=== PATIENT | female | born 1990 | race Caucasian/White ===

== ENCOUNTER → 2017-05-31 19:28 | Outpatient (CLI) | payer OTHER, SELFPAY ==
[2017-06-02 16:10] LABS: Angiotensin Convert Enzyme 136 U/L (14-82)
[2017-06-03 16:34] LABS: Anti-Nuclear Antibody Test Negative (.); Immunoglobulin M < 5 mg/dL (26-217)
== END ==
PROVIDERS: Family Provider Internal Medicine; PCP Internal Medicine; Visit Provider Internal Medicine Hematology & Oncology
DX: R69 Illness, unspecified (principal)
CPT/HCPCS: 82164; 82784; 86038

== ENCOUNTER 2017-10-24 09:04 | Emergency (ER) | payer OTHER, SELFPAY ==
[2017-10-24 09:04] VITALS: BP 145/101; PULSE 91; RESP 16; TEMP 36.9; O2SAT 100; BMI 23.2
--- NOTE | 2017-10-24 09:14 | NURSING ---
NO LW OR POA
--- NOTE | 2017-10-24 09:16 | RAD_ITS ---
STUDY: X-RAY CHEST REASON FOR EXAM: Female, 27 years old. Acute onset of chest pain TECHNIQUE: Single AP portable view of the chest. COMPARISON: 08/06/2017 FINDINGS: The lungs are clear and expanded. There is no demonstrated pleural abnormality. Normal size heart. Normal mediastinum and devon. Normal visualized pulmonary arteries. Normal visualized aortic arch and descending thoracic aorta. Normal visualized thoracic spine. Normal visualized ribs, clavicles, and shoulders. There is no demonstrated abnormality of the visualized soft tissue structures of the upper abdomen. RAD/Chest 1 View (Portable) IMPRESSION: Normal x-ray examination of the chest. Electronically Signed: Aamir Cotto DO at 10:47 EST Tel , Service support ,
--- NOTE | 2017-10-24 09:16 | EKG12_ITS ---
Test Reason : CP Blood Pressure : / mmHG Vent. Rate : 090 BPM Atrial Rate : 090 BPM P-R Int : 120 ms QRS Dur : 086 ms QT Int : 366 ms P-R-T Axes : 042 031 018 degrees QTc Int : 447 ms Normal sinus rhythm Normal ECG Confirmed by SHARRI MCCALL, LEXY ([id number]), fashion editor PIOTR KRAUSE ([id number]) on 10/26/2017 12:58:33 PM Referred By: MYLES Confirmed By:LEXY HARRELL MD
[2017-10-24 09:44] LABS: Hematocrit 30.7 % (37-47); Hemoglobin 9.8 g/dl (12.0-15.0); Mean Corp Hgb Conc 31.9 g/gl (32-36); Mean Corpuscular Hgb 29.4 pg (27.0-32.0); Mean Corpuscular Volume 92.2 fL (81-99); Mean Platelet Vol. 9.3 fl (6.2-12.0); Platelet Count 276 K/mm3 (150-450); RBC Distribution Width SD 56.6 fl (35.1-43.9); Red Blood Count 3.33 M/mm3 (4.2-5.4); White Blood Count 21.8 K/mm3 (4.4-11.0)
[2017-10-24 09:45] LABS: POSITIVE COUNT NO; POSITIVE DIFFERENTIAL YES; POSITIVE MORPHOLOGY YES
[2017-10-24 09:46] LABS: Differential Indicated MANUAL DIFF
[2017-10-24 09:54] LABS: Anion Gap 10 (5-15); BUN 12 mg/dL (7-18); BUN/Creat Ratio 23.3 RATIO (10-20); Calcium,Total 9.5 mg/dL (8.5-10.1); Chloride 102 mmol/L (98-107); Creatinine, Serum 0.51 mg/dL (0.55-1.02); EST Glomerular Filtration Rate 154 mL/min (>60); Est Glom Filt Rate - Afr Amer 186 mL/min (>60); Glucose 84 mg/dL (74-106); Lipase 72 U/L (73-393); Potassium 3.4 mmol/L (3.5-5.1); Sodium Level 139 mmol/L (136-145)
[2017-10-24 09:58] LABS: AST(SGOT) 10 U/L (15-37); Alanine Aminotransfer ALT/SGPT 16 U/L (13-56); Albumin, Serum 2.3 g/dL (3.2-5.0); Alkaline Phosphatase 183 U/L (45-117); Bilirubin, Direct < 0.05 mg/dL (0.00-0.30); D-Dimer Quantitative (DVT/PE) 3.21 FEU/ug/m (0.27-0.49); Globulin 3.9 g/dL (2.2-4.2); Protein, Total 6.2 g/dL (6.4-8.2)
--- NOTE | 2017-10-24 10:00 | CT_ITS ---
STUDY: CTA CHEST REASON FOR EXAM: Female, 27 years old. Chest pain this morning RADIATION DOSAGE (If Supplied By Facility): CTDIvol = ( 7.42 ) mGy, DLP = ( 196.46 ) mGycm TECHNIQUE: The examination was performed with the intravenous administration of 75 ml of Isovue 370 contrast material. Post-processing of the angiographic images was performed, with multiplanar reformation and 3D reconstruction. Individualized dose optimization techniques were used for this CT. COMPARISON: Chest x-ray earlier FINDINGS: Normal enhancement of the main pulmonary artery and right and left pulmonary arteries. Normal enhancement of the bilateral peripheral pulmonary arteries. There is no demonstrated pulmonary embolism. Normal thoracic aorta and visualized great vessels. There is no demonstrated aortic dissection. Normal heart and pericardium. Normal mediastinum. Normal hilar regions. Normal visualized trachea and bronchi. The lungs are well expanded. There is a left retrocardiac infiltrate suggesting left retrocardiac pneumonia. There is a trace pleural effusion on the left. Lungs are otherwise clear Normal pleura. Normal chest wall structures. Normal osseous structures. Hepatosplenomegaly is noted. CT/CTA Chest W/WO Contrast IMPRESSION: 1. Negative for pulmonary embolism or thoracic aortic dissection 2. Subtle left retrocardiac infiltrate suggests pneumonia with small effusion. Lungs are otherwise clear. 3. Hepatosplenomegaly. Electronically Signed: Aamir Cotto DO at 11:29 EST Tel , Service support ,
[2017-10-24] MEDS: 0.9% Normal Saline 1,000 ML 150 ML IV (10:03)
[2017-10-24] MEDS: Ondansetron 4 MG/2 ML Vial IV (10:03)
[2017-10-24] MEDS: HYDROmorphone 1 MG/ML Syringe IV (10:03)
[2017-10-24 10:05] VITALS: BP 133/107; PULSE 94; RESP 16; O2SAT 100
[2017-10-24 10:08] LABS: Lymphocyte 11 % (19-41); Metamyelocyte 1 % (0-1); Monocyte 8 % (0-10); Myelocyte 3 (0-0); Neutrophil-Band 3 % (0-5); Neutrophil-Segmented 74 % (47-70); Nucleated Red Bld Cells,Manual 1 % (0-5); Total Cells Counted 100 (MANUAL DIFF)
[2017-10-24 10:09] LABS: Anisocytosis 1+; Platelet Estimate ADEQUATE (ADEQ)
--- NOTE | 2017-10-24 10:09 | ED.VISSUMM ---
- ER Visit Summary Date of Service: 10/24/17 Chief Complaint: [Chest pain] History of Present Illness: The patient is a 27 F [presents to the emergency department with complaint of chest pain that started this morning around 5 AM. Patient states she was sleeping when she was awoken by sharp stabbing pain in the center of her chest. Patient denies any nausea or vomiting with it. Patient states that the pain is not pleuritic. Patient has a history of non-Hodgkin's large B-cell lymphoma. Patient denies any fever. Patient did have a cough 2 weeks ago but has not cough for about a week to a week and a half. Patient was hospitalized a couple weeks ago and apparently was admitted for couple months up at [facility]. Patient's last chemotherapy was about 3 weeks ago.] Physical Examination: [HERAFIARVELIA ESTEVEZMI. Cranial nerves II through XII grossly intact. TMs clear. Mucous membranes moist. No adenopathy. Cardiovascular-regular rate and rhythm without murmur or ectopy Lungs-clear to auscultation, chest wall stable without crepitus or subcu emphysema. Patient has tenderness palpation over the anterior central chest that seems to reproduce her pain. Abdomen-normoactive bowel sounds, soft, nontender, no rebound or rigidity, no peritoneal signs. Extremities-intact ?4, normal range of motion, normal pulses, atraumatic] Test Results: [CBC with differential obtained for white count 21.8, Hemoccult 9.8, hematocrit 31, platelets 276. Chemistries unremarkable. LFTs unremarkable. Lipase was 72. Troponin was less than 0.02. TG obtained showed sinus rhythm with a rate of 90 bpm with no acute ST segment changes. Chest x-ray obtained due to. D-dimer was elevated therefore CT of the chest was ordered] there was no evidence of PE or dissection. There was a faint retrocardiac infiltrate concerning for pneumonia. Patient's family state that findings on the left side on the CT are chronic and she had similar findings on CT up in [place]. Patient was believed to have gotten C. difficile from being treated with Levaquin. Emergency Department Course and Treatment: [Discussed case with Dr. Shon Felix as patient is scheduled to see him tomorrow. Family tells me that patient's white blood cell count commonly elevated before her next chemo treatment and she is receiving Neulasta. Patient has not had a fever. Patient has not had a cough for over a week and a half. Clinically I do not believe the patient has pneumonia. Patient's chest pain is reproducible and is feeling improved after being treated with Dilaudid in the emergency department. I did order blood cultures and I feel patient can be safely discharged home to keep her appointment with Dr. Felix tomorrow and he is in agreement.] Treatment Plan: [Patient will be given a prescription for [place] for pain.] Disposition: Discharged to home in stable condition. Patient advised to return if worsening pain, increasing shortness of breath, or condition should worsen in any way.] Impression: [Chest pain-etiology uncertain however suspect musculoskeletal] This note was generated with [employer] dictation software. It may contain incorrect words, spelling, and punctuation that were not noted in review of the chart prior to signing ED Disposition - Plan for ED Patient: Chief Complaint: Chest Pain Referrals: Juanita Zapata MD [Primary Care Provider] -
[2017-10-24 10:10] LABS: Hypochromasia 2+; Polychromasia 1+; Schistocytes RARE
[2017-10-24 10:11] LABS: Absolute Neutrophil Count 16.8 X10^3/uL (2.0-7.7)
--- NOTE | 2017-10-24 10:12 | ED.DCSUM_ITS ---
- ER Visit Summary Date of Service: 10/24/17 Chief Complaint: [Chest pain] History of Present Illness: The patient is a 27 F [presents to the emergency department with complaint of chest pain that started this morning around 5 AM. Patient states she was sleeping when she was awoken by sharp stabbing pain in the center of her chest. Patient denies any nausea or vomiting with it. Patient states that the pain is not pleuritic. Patient has a history of non- Hodgkin's large B-cell lymphoma. Patient denies any fever. Patient did have a cough 2 weeks ago but has not cough for about a week to a week and a half. Patient was hospitalized a couple weeks ago and apparently was admitted for couple months up at [facility]. Patient's last chemotherapy was about 3 weeks ago.] Physical Examination: [HERAFIARVELIA ESTEVEZMI. Cranial nerves II through XII grossly intact. TMs clear. Mucous membranes moist. No adenopathy. Cardiovascular-regular rate and rhythm without murmur or ectopy Lungs-clear to auscultation, chest wall stable without crepitus or subcu emphysema. Patient has tenderness palpation over the anterior central chest that seems to reproduce her pain. Abdomen-normoactive bowel sounds, soft, nontender, no rebound or rigidity, no peritoneal signs. Extremities-intact ?4, normal range of motion, normal pulses, atraumatic] Test Results: [CBC with differential obtained for white count 21.8, Hemoccult 9.8, hematocrit 31, platelets 276. Chemistries unremarkable. LFTs unremarkable. Lipase was 72. Troponin was less than 0.02. TG obtained showed sinus rhythm with a rate of 90 bpm with no acute ST segment changes. Chest x- ray obtained due to. D-dimer was elevated therefore CT of the chest was ordered ] there was no evidence of PE or dissection. There was a faint retrocardiac infiltrate concerning for pneumonia. Patient's family state that findings on the left side on the CT are chronic and she had similar findings on CT up in [place]. Patient was believed to have gotten C. difficile from being treated with Levaquin. Emergency Department Course and Treatment: [Discussed case with Dr. Shon Felix as patient is scheduled to see him tomorrow. Family tells me that patient's white blood cell count commonly elevated before her next chemo treatment and she is receiving Neulasta. Patient has not had a fever. Patient has not had a cough for over a week and a half. Clinically I do not believe the patient has pneumonia. Patient's chest pain is reproducible and is feeling improved after being treated with Dilaudid in the emergency department. I did order blood cultures and I feel patient can be safely discharged home to keep her appointment with Dr. Felix tomorrow and he is in agreement.] Treatment Plan: [Patient will be given a prescription for [place] for pain.] Disposition: Discharged to home in stable condition. Patient advised to return if worsening pain, increasing shortness of breath, or condition should worsen in any way.] Impression: [Chest pain-etiology uncertain however suspect musculoskeletal] This note was generated with [employer] dictation software. It may contain incorrect words, spelling, and punctuation that were not noted in review of the chart prior to signing ED Disposition - Plan for ED Patient: Chief Complaint: Chest Pain Referrals: Juanita Zapata MD [Primary Care Provider] -
--- NOTE | 2017-10-24 10:38 | NURSING ---
NO LW OR POA
[2017-10-24 11:35] VITALS: BP 126/96; PULSE 89; RESP 18; O2SAT 100
[2017-10-24 11:44] LABS: Bacteria 0 SEEN /hpf (None Seen); Mucous, Urine 0 SEEN /hpf (<or=2+); Red Blood Cells-Urine 0 SEEN /hpf (0-5); White Blood Cells 0 SEEN /hpf (0-5)
[2017-10-24 11:46] LABS: Color, Urine Yellow (Yellow); Glucose, Dipstick Normal (Normal); Ketone-Dipstick Negative (Negative); Leukocyte Esterase-Dipstick Negative /ul (Negative); Nitrite-Dipstick Negative (Negative); Occult Blood-Urine Negative /ul (Negative); Protein-Dipstick Negative (Negative); Urine Bilirubin Dipstick Negative (Negative); Urine Clarity Sl. Cloudy (Clear); Urine Urobilinogen Normal (Normal); Urine pH 6.5 (5.0 - 8.0)
[2017-10-24 11:54] LABS: Squamous Epithelial Cells - UA 0-5 SEEN /hpf (5-10)
--- NOTE | 2017-10-24 11:56 | ED.DEP ---
ED Disposition - Plan for ED Patient: Chief Complaint: Chest Pain Instructions: ED Chest Pain Atypical Unkn Cause Prescriptions: Hydrocodone Bitart/Apap 5-325 [[place] 5/325] 1 - 2 tab PO Q4H PRN PRN #12 tab PRN Reason: Pain Referrals: Juanita Zapata MD [Primary Care Provider] - Shon Felix DO [STAFF PHYSICIAN] - 1 Day
--- NOTE | 2017-10-24 12:08 | ED.RN ---
1 SET OF BLOOD CULTURES TAKEN AND SENT. UNABLE TO GET 2ND CULTURE PRIOR TO DEPARTURE. PT HAD TO LEAVE TO TAKE HOME MEDS.
[2017-10-24 12:09] VITALS: BP 136/91; PULSE 89; RESP 16; O2SAT 100
[2017-10-26 14:44] LABS: Pathologist Review Reviewed
== END 2017-10-24 12:09 | disposition home or self-care (01) ==
PROVIDERS: Emergency Provider Emergency Medicine; Family Provider Internal Medicine; PCP Internal Medicine
DX: R07.89 Other chest pain (principal); R79.89 Other specified abnormal findings of blood chemistry; R91.8 Other nonspecific abnormal finding of lung field; D72.829 Elevated white blood cell count, unspecified; C85.10 Unspecified B-cell lymphoma, unspecified site; Z79.899 Other long term (current) drug therapy
CPT/HCPCS: 71045; 71275; 80048; 80076; 81001; 83690; 84484; 85025; 85379; 87804; 93005; 96361; 96374; 96375; 99284; J7030; Q9967; A4216; J2405

== ENCOUNTER → 2017-10-25 15:58 | Outpatient (CLI) | payer OTHER, SELFPAY ==
[2017-10-25 18:11] LABS: AST(SGOT) 14 U/L (15-37); Alanine Aminotransfer ALT/SGPT 21 U/L (13-56); Albumin, Serum 2.2 g/dL (3.2-5.0); Alkaline Phosphatase 195 U/L (45-117); Bilirubin, Direct < 0.05 mg/dL (0.00-0.30); Globulin 3.8 g/dL (2.2-4.2); LDH 289 U/L (84-246); Uric Acid 4.8 mg/dL (2.6-6.0)
== END ==
PROVIDERS: Family Provider Internal Medicine; PCP Internal Medicine; Visit Provider Internal Medicine Hematology & Oncology
DX: C83.38 Diffuse large B-cell lymphoma, lymph nodes of multiple sites (principal)
CPT/HCPCS: 80076; 83615; 84550

== ENCOUNTER → 2017-10-26 10:28 | Outpatient (CLI) | payer OTHER, SELFPAY | PROVIDERS: Family Provider Internal Medicine; PCP Internal Medicine; Visit Provider Internal Medicine Hematology & Oncology | DX: C85.10 Unspecified B-cell lymphoma, unspecified site (principal) | CPT/HCPCS: 36569; A4216 ==

== ENCOUNTER → 2017-10-26 10:52 | Outpatient (CLI) | payer OTHER, SELFPAY ==
[2017-10-27 11:37] LABS: Phosphorus 3.9 mg/dL (2.5-4.9)
== END ==
PROVIDERS: Family Provider Internal Medicine; PCP Internal Medicine; Visit Provider Internal Medicine Hematology & Oncology
DX: C83.38 Diffuse large B-cell lymphoma, lymph nodes of multiple sites (principal); C83.30 Diffuse large B-cell lymphoma, unspecified site
CPT/HCPCS: 84100

== ENCOUNTER → 2017-11-08 09:25 | Outpatient (CLI) | payer OTHER, SELFPAY | PROVIDERS: Family Provider Internal Medicine; PCP Internal Medicine; Visit Provider Internal Medicine Hematology & Oncology | DX: C83.30 Diffuse large B-cell lymphoma, unspecified site (principal) | CPT/HCPCS: 94642 ==

== ENCOUNTER → 2017-11-15 09:42 | Outpatient (CLI) | payer OTHER, SELFPAY ==
[2017-11-15 13:35] LABS: AST(SGOT) 13 U/L (15-37); Alanine Aminotransfer ALT/SGPT 15 U/L (13-56); Albumin, Serum 2.7 g/dL (3.2-5.0); Alkaline Phosphatase 144 U/L (45-117); Bilirubin, Direct 0.06 mg/dL (0.00-0.30); Globulin 3.8 g/dL (2.2-4.2); LDH 151 U/L (84-246); Protein, Total 6.5 g/dL (6.4-8.2); Uric Acid 6.7 mg/dL (2.6-6.0)
[2017-11-16 13:51] LABS: T4 Free Direct 1.18 ng/dL (0.76-1.46); Thyroid Stim Hormone (TSH) 1.72 uIU/mL (0.358-3.74)
== END ==
PROVIDERS: Family Provider Internal Medicine; PCP Internal Medicine; Visit Provider Internal Medicine Hematology & Oncology
DX: C83.30 Diffuse large B-cell lymphoma, unspecified site (principal); R53.83 Other fatigue
CPT/HCPCS: 80076; 83615; 84439; 84443; 84550

== ENCOUNTER → 2017-11-17 08:32 | Outpatient (CLI) | payer OTHER, SELFPAY ==
[2017-11-17] VITALS (7 sets, daily range): BP systolic 103–114; BP diastolic 65–80; PULSE 78–96; RESP 16–18; TEMP 35.7–36.4; O2SAT 98–100; BMI 22.0
== END ==
PROVIDERS: Family Provider Internal Medicine; PCP Internal Medicine; Visit Provider Internal Medicine Hematology & Oncology
DX: D61.818 Other pancytopenia (principal)
CPT/HCPCS: 36430; 86644; 86850; 86900; 86920; 86922; J7040; P9040; A4216

== ENCOUNTER → 2017-11-24 13:51 | Outpatient (CLI) | payer OTHER, SELFPAY ==
[2017-11-24 15:23] VITALS: BP 100/70; PULSE 114; RESP 18; TEMP 36; O2SAT 100; BMI 22.0
[2017-11-24 15:58] VITALS: BP 99/66; PULSE 103; RESP 16; TEMP 36.2; O2SAT 99
[2017-11-24 17:01] VITALS: BP 108/68; PULSE 100; RESP 16; TEMP 36.5; O2SAT 100
[2017-11-24 17:23] VITALS: BP 108/70; PULSE 87; RESP 18; TEMP 35.8; O2SAT 97
[2017-11-24 18:07] VITALS: BP 107/70; PULSE 100; RESP 18; TEMP 36.6; O2SAT 100
== END ==
PROVIDERS: Visit Provider Internal Medicine Hematology & Oncology
DX: C83.30 Diffuse large B-cell lymphoma, unspecified site (principal); D61.9 Aplastic anemia, unspecified
CPT/HCPCS: 36430; 86644; 86900; 86965; J7040; P9035; A4216

== ENCOUNTER → 2017-12-06 15:59 | Outpatient (CLI) | payer OTHER, SELFPAY ==
[2017-12-06 16:39] LABS: AST(SGOT) 14 U/L (15-37); Alanine Aminotransfer ALT/SGPT 10 U/L (13-56); Albumin, Serum 2.8 g/dL (3.2-5.0); Alkaline Phosphatase 154 U/L (45-117); Bilirubin, Direct 0.05 mg/dL (0.00-0.30); Globulin 3.7 g/dL (2.2-4.2); LDH 243 U/L (84-246); Protein, Total 6.5 g/dL (6.4-8.2); Uric Acid 4.6 mg/dL (2.6-6.0)
[2017-12-08 04:15] LABS: Immunoglobulin G 339 mg/dL (700-1600)
[2017-12-08 09:22] LABS: Immunoglobulin A 25 mg/dL (87-352); Immunoglobulin M 11 mg/dL (26-217)
== END ==
PROVIDERS: Family Provider Internal Medicine; PCP Internal Medicine; Visit Provider Internal Medicine Hematology & Oncology
DX: C83.30 Diffuse large B-cell lymphoma, unspecified site (principal); D84.9 Immunodeficiency, unspecified
CPT/HCPCS: 80076; 82784; 83615; 84550

== ENCOUNTER → 2017-12-14 09:30 | Outpatient (CLI) | payer OTHER, SELFPAY ==
[2017-12-14] VITALS (9 sets, daily range): BP systolic 87–107; BP diastolic 51–63; PULSE 84–119; RESP 16–18; TEMP 36.2–37.2; O2SAT 99–100; BMI 22.0
== END ==
PROVIDERS: Family Provider Internal Medicine; PCP Internal Medicine; Visit Provider Internal Medicine Hematology & Oncology
DX: D61.818 Other pancytopenia (principal)
CPT/HCPCS: 36430; 86644; 86850; 86900; 86920; 86922; 86965; J7040; P9037; P9040; A4216

== ENCOUNTER → 2017-12-20 09:48 | Outpatient (CLI) | payer OTHER, SELFPAY ==
--- NOTE | 2017-12-20 09:51 | ECHOD_ITS ---
Reason For Study: CARDIOTOXICITY Procedure This was a 2D Doppler, Color Flow transthoracic echocardiogram. Exam performed in department. Left Ventricle Normal size and thickness. The estimated ejection fraction is 40-45 %. Normal diastology for age. There is moderate global hypokinesis of the left ventricle. Right Ventricle Normal size and thickness. Normal systolic function. Atria Normal left atrium. Normal right atrium. Normal atrial septum. Mitral Valve The mitral valve is structurally normal. No prolapse or stenosis seen. Tricuspid Valve Normal tricuspid valve. Unable to estimate RV systolic pressure/pulmonary artery pressure due to technically difficult study. Aortic Valve Normal aortic valve. Trisinus/trileaflet aortic valve. Pulmonic Valve Normal pulmonic valve. Great Vessels Normal aortic root. Normal arch. Normal inferior vena cava. Inferior vena cava collapse with sniff. Pericardium/Pleural No pericardial effusion. MMode/2D Measurements & Calculations LVIDd: 4.0 cm IVSd: 0.86 cm Ao root diam: 2.9 cm LVIDs: 3.2 cm LVPWd: 0.91 cm RVDd: 2.3 cm FS: 20.2 % LAV(MOD-bp): 15.8 ml EDV(MOD-sp4): 82.4 ml SV(MOD-sp4): 42.7 ml LAV(MOD-bp) Indexed: 8.9 ml/m2 ESV(MOD-sp4): 39.7 ml LAV(MOD-sp2): 12.6 ml EF(MOD-sp4): 51.8 % LAV(MOD-sp4): 18.5 ml LA A4 area: 9.4 cm2 RA A4 area: 5.1 cm2 Time Measurements MV dec time: 0.21 sec Doppler Measurements & Calculations MV E max francis: 72.6 cm/sec Lat Peak E' Francis: 11.4 cm/sec Med Peak E' Francis: 9.6 cm/sec MV A max francis: 66.1 cm/sec E/E' lat: 6.3 E/E' med: 7.6 MV E/A: 1.1 Ao V2 max: 107.3 cm/sec LV V1 max: 87.5 cm/sec PA V2 max: 89.6 cm/sec Ao max P.6 mmHg LV V1 max P.1 mmHg Interpretation Summary The estimated ejection fraction is 40-45 %. Normal diastology for age. There is moderate global hypokinesis of the left ventricle. Unable to estimate RV systolic pressure/pulmonary artery pressure due to technically difficult study. There is no comparison study available. Ordering Physician: Serafin Mayorga Referring Physician: LELE GRIFFITHS Performed By: Rebekah Braxton RDCS
[2017-12-20 10:22] LABS: Hemoglobin 11.1 g/dl (12.0-15.0); Mean Corp Hgb Conc 32.6 g/gl (32-36); Mean Corpuscular Hgb 31.3 pg (27.0-32.0); Mean Corpuscular Volume 95.8 fL (81-99); Mean Platelet Vol. 10.4 fl (6.2-12.0); Platelet Count 105 K/mm3 (150-450); RBC Distribution Width CV 17.2 % (11.6-14.6); RBC Distribution Width SD 55.5 fl (35.1-43.9); Red Blood Count 3.55 M/mm3 (4.2-5.4); White Blood Count 10.2 K/mm3 (4.4-11.0)
[2017-12-20 10:24] LABS: Scan Indicated on CBC? Y/N NO
== END ==
PROVIDERS: Family Provider Internal Medicine; PCP Internal Medicine; Visit Provider Internal Medicine Hematology & Oncology
DX: C83.33 Diffuse large B-cell lymphoma, intra-abdominal lymph nodes (principal); R16.2 Hepatomegaly with splenomegaly, not elsewhere classified; D69.6 Thrombocytopenia, unspecified; Z08 Encounter for follow-up examination after completed treatment for malignant neoplasm
CPT/HCPCS: 36415; 85027; 93306

== ENCOUNTER 2017-12-22 12:00 | Outpatient (RCR) | payer OTHER, SELFPAY ==
--- NOTE | 2017-10-31 15:38 | HP.OTEVAL ---
Patient's Visit Information HENRIETTA LOPEZ is a 27 year old F, referred to Occupational Therapy by ENOC BRITT ERIKA, with a diagnosis of Weakness in arms. Date of Evaluation: 10/31/17 Occupational Therapist: Mirella Corcoran - Subjective Subjective: Pt seen for initial occupational therapy evaluation for decreased upper extremity strength and decreased independence with BADLs/IADLs. Pt has Non-Hodgkin's Lymphoma and is going through chemo at this time. Pt has been living at her house part of the time and at her parents house the other times. She has primarily been residing at her parents house more recently which is one story with 2 steps to enter. She has a tub/shower with extended tub bench, hand held shower, and a bedside commode over the toilet. She works at [email or web address], but hasn't been back to work for a few months secondary to medical condition. - Objective Objective/Observation: Pt demo decreased strength, activity tolerance and independence with BADLs/IADLs - ROM ROM Comments: WFL BUE - Strength Shoulder: R 3+/5, L 3+/5 Elbow: R 3+/5, L 3+/5 Forearm: R 3+/5, L 3+/5 Wrist: R 3+/5, L 3+/5 Core Cutter And Reamer: R 18#, L 14# Tripod Pinch: R 2#, L 0# Strength Comments: Pt demo decreased generalized BUE strength. - Edema Other: No Edema Noted - Sensation Sensation Comments: Numbness bilateral finger tips since sx 07/2017. - Transfers Transfers: Moderate Assist needed for sit to stand transfers. Pt demo good safety with hands. - Nine Hole Peg Right: 26 sec Left: 29 sec - DASH-Disabilities of Arm, Shoulder& Hand DASH Sum: 72 - Goals Goal:: Pt will progress w/ BUE strength 4/5 to assist w/ toilet transfers independently by d/c. Goal:: Pt will progress w/ LB dressing and toileting tasks independently with the use of DME/AE as needed with good safety and use of adaptive techniques as needed. Goal:: Pt will progress w/ R hand certified ophthalmic medical technician strength by 8# and L hand certified ophthalmic medical technician strength by 10# to assist w/ BADL's/IADL's. Goal:: Pt will be educated on BUE HEP to increase strength and tolerance for BADLs/IADLs with good understanding and demo 100%x. - Rehabilitation General Assessment: Pt demo decreased BUE strength, decreased bilateral certified ophthalmic medical technician strength and pinch strength limiting her independence with functional transfers and ADL tasks. Pt would benefit from occupational therapy services to increase her BUE generalized strength and bilateral certified ophthalmic medical technician strength, as well as increase her independence with functional transfers and BADLs. Rehabilitation Potential: Excellent - Anticipated Interventions Anticipated Interventions: Strengthening, Modalities, Fine Motor Coord/Jimbo, ADL Training, Education re assistive Equipment, Home Program - Visit Plan Frequency: 2x /Week Duration: 6 Weeks General Plan: increase independence with self care tasks, upper body strength and bilateral certified ophthalmic medical technician/pinch strength TEXT: Thank you for the opportunity to evaluate your patient. For Medicare and Medicare HMO plans, please review the plan of care and approve it. It will need to be FAXED BACK to us at [phone] for Medicare purposes. Please let me know if there are questions or concerns regarding this plan of care. Physician Signature: Date:
--- NOTE | 2017-12-06 13:12 | HP.OTDCSUM ---
HP - OT D/C Summary It has been my pleasure to treat HENRIETTA LOPEZ under orders from ENOC BRITT ERIKA for the diagnosis of Weakness in arms for a total of 11 visit(s). Please see the following information for a summary of their discharge status. - Objective Objective/Function: Reject Opener strength R 20#, L 20#, Tripod Pinch R 6, L 6. BUE generalized strength 4/5. Pt independently completing all BADLs on her own and cooking meals independently. - Goals Patient Goals: Regain Strength, Return to Work, Improve Fine Motor Skills, Use Hand/Wrist/Arm Normally Again, Decrease Tingling/Numbness, Be More Independent in ADLS, Improve Transfer Skills, Resume Former Household Responsibilities (Cooking,Cleaning,Yard, etc.), Resume Hobbies Goal:: Pt will progress w/ BUE strength 4/5 to assist w/ toilet transfers independently by d/c. Goal:: Pt will progress w/ LB dressing and toileting tasks independently with the use of DME/AE as needed with good safety and use of adaptive techniques as needed. Goal:: Pt will progress w/ R hand wallpaper cleaner strength by 8# and L hand wallpaper cleaner strength by 10# to assist w/ BADL's/IADL's. Goal:: Pt will be educated on BUE HEP to increase strength and tolerance for BADLs/IADLs with good understanding and demo 100%x. - Plan Plan: d/c from OT this date. - D/C Information Discharge Comments: Pt has made great progress with occupational therapy services. She has been educated on BUE HEP and demo good understanding 100%x. Pt has progressed with her tripod pinch strength 6lbs right and left hand. She has progressed with her generalized BUE strength from 3+/5 to 4/5. She is independently completing all BADL's and functional transfers without AE now. She is cooking meals independently. Her wallpaper cleaner strength has improved 20lbs right hand and 20lbs left hand. Pt has made great progress with her goals and no longer requires OT services at this time. Pt would like to d/c OT services and complete BUE HEP to maintain her strength. If there are questions or concerns regarding this patient's occupational therapy, please fell free to call me at [phone]. Thank you for the referral of this patient. Sincerely, Mirella Corcoran
--- NOTE | 2017-12-22 12:32 | HP.PTREVAL_ITS ---
ALLISON STUBBS, It has been my pleasure to treat HENRIETTA LOPEZ over the last 15 visits for Weakness. Please see the progress note below for an update on the physical therapy plan of care! Subjective: Patient reports that she is doing great, she is 75% better. She is happy with progress and wants to continue to work out at the gym. Plans to go back to work in 2 weeks if the PET scan is clear. The only thing she has problems with his getting up from the floor. No Pain Objective/Function: Posture: good throughout. Gait: slightly antalgic- wider SHASHA- no AD. Stairs:asc/desc 8 recip- no HR down and 1 HR up with moderate use. HR/TR: able to HR but unable to TR. SLS: 10 sec with close supervision. Getting up from floor: 1/2 kneel with chair unable to perform without chair. ROM: WFL. Strength: Ankle: 3-/5, Knee: 4+/5, Hip: 4/5 throughout Core: fair Plan Plan: Hold- will do HEP for 4 weeks at gym and follow up as needed Goals Goal 1:: Patient will be I with HEP and progression Goal Time Frame: 6-8 Weeks Goal Progress: Goal Met Goal 2:: Patient will ambulate >800 feet with LRD and good gait pattern Goal Time Frame: 6-8 Weeks Goal Progress: Progressing Goal 3:: Patient will increase her SUAREZ score by 8 points to show clinical significant difference Goal Time Frame: 6-8 Weeks Goal Progress: Progressing Goal 4:: Leianet will asc/desc 8'' stairs with mod I to ease transition home Goal Time Frame: 6-8 Weeks Goal Progress: Goal Met Anticipated Interventions Patient/Client Instruction: Educate patient on: Benefits of Fitness Program For the Purpose of:: To improve performance and independence with ADL's Therapeutic Exercise to Include: Strength training, Endurance training, Balance training, Coordination, Body mechanics, Postural training, Gait and locomotor training, Dynamic Lumbar Stabilization, Scapular Strength/Stabilization For the Purpose of:: To improve muscle performance and motor function Functional Training to Include: ADL Training, Functional home training, Gait training For the Purpose of:: To improve ability to perform ADL's Please do not hesitate to contact me at [phone] by phone or Fax: if you have questions or concerns regarding this new plan of care! Sincerely, Dee Reddy
--- NOTE | 2017-12-22 12:32 | HP.PTEVAL ---
Patient's Visit Information HENRIETTA LOPEZ is a 27 year old F referred to Physical Therapy by ALLISON STUBBS with a diagnosis of Weakness. Date of Evaluation: 10/27/17 Physical Therapist: Dee Reddy - Visit Plan Frequency: 3x /Week Duration: 6 Weeks Plan: Hold- will do HEP for 4 weeks at gym and follow up as needed - Subjective Subjective: Diagnosed with cancer at end of July- stayed at [facility]- tried to come to [place] for rehab- spiked a fever then went back. Came home last week. Normally lives in a 2 story home but currently living in a one story. Current living situation has 2 stairs to get into without a handrail. Can't do any mobility I. Fully I before going to [place]- has but no children. Currently lives with mom. Mother is able to be 24 hour caregiver. Patient is able is to I bathe, dress. 18 stairs with bilateral HR to current apt at home. Once inside its all on one floor. Goal is get back to her apartment. No pain just weakness. Chemo every 3 weeks- one day- spinal and drip. Only has 2 more chemos- 6 weeks left of Chemo. Will do more scans 2-3 months out. Has only used a walker at rehab. But its getting better. Sleep: not disturbed. Has only had one fall- 2 or 3 weeks ago- in the hospital. Knee buckled and down you went. Knees have not buckled in 3 weeks. Normally walks about 280-300 feet with mom having hands on the gait belt. PMHx: very healthy before this. Meds: mother will bring medication. Had CT scans a few months ago. - Objective Posture: FH, RS, Increased kyphosis. Gait: antalgic- wide SHASHA- requires CGA with ambulation. Slow schuyler and decreased step length. Sit to Stand: min a x 1 with 3 rocks for momentum. Balance: Sitting balance static: good, Sitting balance dynamic: good. Standing balance static and dynamic are both poor. SUAREZ balance: 13/56 placing her in a high fall risk category. ROM: WFL in all planes. Palpation: not tender. Strength: Ankle: DF: 2+/5 PF: 3+/5, knee: 4-/5, hip: 4-/5 SLR: mild lag bilaterally- Core: poor. Flexibility: HS: moderate, Gastroc: moderate - Goals Goal 1:: Patient will be I with HEP and progression Goal Time Frame: 6-8 Weeks Goal 2:: Patient will ambulate >800 feet with LRD and good gait pattern Goal Time Frame: 6-8 Weeks Goal 3:: Patient will increase her SUAREZ score by 8 points to show clinical significant difference Goal Time Frame: 6-8 Weeks Goal 4:: Leianet will asc/desc 8'' stairs with mod I to ease transition home Goal Time Frame: 6-8 Weeks - Rehabilitation Potential Physical Therapy Diagnosis: Patient presents with hypomobility- she has decreased strength and muscular endurance leading to inability to perform ADL's I. Rehabilitation Potential: Fair - Anticipated Interventions Patient/Client Instruction: Educate patient on: Benefits of Fitness Program For the Purpose of:: To improve performance and independence with ADL's Therapeutic Exercise to Include: Strength training, Endurance training, Balance training, Coordination, Body mechanics, Postural training, Gait and locomotor training, Dynamic Lumbar Stabilization, Scapular Strength/Stabilization For the Purpose of:: To improve muscle performance and motor function Functional Training to Include: ADL Training, Functional home training, Gait training For the Purpose of:: To improve ability to perform ADL's Thank you for the opportunity to evaluate your patient. For Medicare and Medicare HMO plans, please review the plan of care and approve it. It will need to be FAXED BACK to us at [phone] for Medicare purposes. Please let me know if there are questions or concerns regarding this plan of care. Physician Signature: Date:
--- NOTE | 2018-01-29 14:20 | HP.PT.NRP ---
HP - Discharge Summary (1) - Patient Information HENRIETTA LOEPZ was seen in my office for initial evaluation on 10/27/17. The following Plan of Care was established for this patient: Initial Frequency: 3x /Week Initial Duration: 6 Weeks - Anticipated Interventions Patient/Client Instruction: Educate patient on: Benefits of Fitness Program For the Purpose of:: To improve performance and independence with ADL's Therapeutic Exercise to Include: Strength training, Endurance training, Balance training, Coordination, Body mechanics, Postural training, Gait and locomotor training, Dynamic Lumbar Stabilization, Scapular Strength/Stabilization For the Purpose of:: To improve muscle performance and motor function Functional Training to Include: ADL Training, Functional home training, Gait training For the Purpose of:: To improve ability to perform ADL's This patient was last seen in our office . Pertinent comments regarding their Physical therapy will appear below: Patient has not returned for 30 days and is appropriate for discharge. Return to MD for further evaluation as needed. At this point I will be discontinuing this patient from physical therapy. I would be happy to see this patient again in the future if found appropriate by the physician. Thank you! Dee Reddy
== END 2017-12-22 19:00 | disposition home or self-care (01) ==
LOC: PT 12:00
PROVIDERS: Family Provider Internal Medicine; PCP Internal Medicine
DX: R53.1 Weakness (principal); R29.6 Repeated falls
CPT/HCPCS: 97110; 97113; 97116; 97163; 97165; 97530

== ENCOUNTER → 2017-12-25 09:31 | Outpatient (CLI) | payer OTHER, SELFPAY ==
--- NOTE | 2017-12-25 09:00 | PET_ITS ---
EXAMINATION: FDG PET CT INDICATIONS: A 27-year-old female with reported history of lymphoma presenting for restaging examination. COMPARISON EXAMINATION: CT of the abdomen and pelvis report dated 08/06/17. INDEX LESION SIZE LUGANO SCORE SUV INTERPRETATION Abdominal-pelvic mesentery, gama hepatis 8.1 cm x 3.4 cm largest (frame 74) 5 10.4 (max) Fulfills quantitative criteria for viable neoplasm Spleen ? splenic parenchyma, nodular 38.6 mm x 31.5 mm (frame 168) 5 10.0 > hepatic parenchyma Fulfills quantitative criteria for viable neoplasm Lower anterior, upper pelvic wall subcutaneous fat 17.3 mm largest (frame 79) 5 4.9 (max) Fulfills quantitative criteria for viable neoplasm TECHNIQUE: Following the intravenous administration of 12.61 mCi of F-18 deoxyglucose via the right antecubital fossa, multiplanar image acquisitions of the neck, chest, abdomen and pelvis to level of mid thigh, obtained at one hour post radiopharmaceutical administration contemporaneously interpreted with the current CT of the neck, chest, abdomen and pelvis to level of mid thigh, dated 12/25/[address] of the abdomen and pelvis report dated 08/06/17 reveal: SERUM GLUCOSE LEVEL: 82 mg/dl. HEIGHT: 68 inches. WEIGHT: 145 lbs. FINDINGS: 1. Multifocal increased glucose metabolism is defined in the upper-lower abdominal-pelvic mesentery, as well as a single focus in the right upper abdomen in the region of the gama hepatis. The calculated maximum standard uptake value is 10.4. The Lugano score is 5. The largest metabolic abnormality with a component of central photopenia manifests a maximal axial diameter of 8.1 cm (transverse) x 3.4 cm (AP). 2. There is an increase in glucose concentration observed in the left upper abdomen in a single nodular focus in the parenchyma of a prominent sized spleen demonstrating a maximal vertical dimension of 15.8 cm (nml < 12.5 cm). The Lugano score is 5. The calculated maximum standard uptake value is 10.0 greater than that defined in the hepatic parenchymal reference value. The maximal axial diameter of the metabolic, morphologic abnormality on review of CT of the abdomen dated 12/25/17 is 38.6 mm (transverse) x 31.5 mm (AP). 3. Several foci of increased glucose concentration are manifest in the right anterior abdominal, pelvic subcutaneous fat generating a calculated maximum standard uptake value of 4.9. The Lugano score is 5. The maximal axial diameter of the largest, most conspicuous soft tissue density is 17.3 mm. 4. Normal physiologic distribution of the radiopharmaceutical is apparent in the hepatic (2.6) parenchyma, both renal units, bladder and visualized intestinal tract. The liver is prominent in size with an apparent Zeferino?s lobe demonstrating a maximal vertical dimension 22.2 cm. Homogeneous radiopharmaceutical concentration is apparent in the visualized appendicular-axial skeletal structures. Pertinent CT findings are as follows. CHEST: There are no parenchymal densities-nodules noted in the right-left hemithorax manifesting quantitatively significant increased glucose metabolism. Bilateral axillary subcentimeter soft tissue densities are non-glucose avid. ABDOMEN AND PELVIS: Cholelithiasis is defined. A periumbilical hernia associated with intestinal tract is demonstrated. A partially-septated cystic structure defined in the lower pelvic mesentery demonstrates no evidence of increased glucose metabolism. Subcentimeter bilateral inguinal soft tissue densities are ametabolic. Apparent postsurgical changes are manifest in the right lower medial abdominal mesentery. SKELETAL: There are no well-defined lytic-sclerotic changes noted in the visualized osseous skeletal structures. PET/PET/CT Tumor Base -Thigh Init IMPRESSION: 1. ABNORMAL EXAMINATION INDICATIVE OF MALIGNANT VIABLE NEOPLASM. 2. Increased glucose uptake noted in the abdominal-pelvic mesentery and gama hepatis fulfills quantitative criteria for viable neoplasm. 3. Facilitated glucose concentration, which appears contiguous to the splenic parenchyma, fulfills quantitative criteria for malignant transformation. (Cindi et al, J Nucl Med 44:1072, 2001). 4. Subcutaneous fat hypermetabolic foci noted in the right lower abdominal, mid anterior pelvic wall fulfill quantitative criteria for viable neoplasm. 5. Homogeneous increased radiopharmaceutical concentration manifest in the visualized appendicular and axial skeletal structures is commensurate with the hematopoietic response to chemotherapeutic intervention. (Alvin plata al, Journal of Clinical Oncology 16:173, 1998). Electronic Signature Kayden June D.O. Electronically Signed: Kayden June DO at 19:28 EDT Tel , Service support ,
== END ==
PROVIDERS: Family Provider Internal Medicine; PCP Internal Medicine; Visit Provider Internal Medicine Hematology & Oncology
DX: C83.30 Diffuse large B-cell lymphoma, unspecified site (principal); R16.2 Hepatomegaly with splenomegaly, not elsewhere classified
CPT/HCPCS: 78815; A9552; A4216

== ENCOUNTER → 2018-01-03 17:57 | Outpatient (CLI) | payer OTHER, SELFPAY ==
[2018-01-03 18:31] LABS: Erythrocyte Sedimentation Rate 48 mm/hr (0-20)
[2018-01-03 18:38] LABS: ALB/GLOB Ratio 0.8 RATIO (0.9-2.4); AST(SGOT) 15 U/L (15-37); Alanine Aminotransfer ALT/SGPT 15 U/L (13-56); Albumin, Serum 3.5 g/dL (3.2-5.0); Alkaline Phosphatase 169 U/L (45-117); Anion Gap 8 (5-15); BUN 10 mg/dL (7-18); BUN/Creat Ratio 14.7 RATIO (10-20); Calcium,Total 10.1 mg/dL (8.5-10.1); Chloride 104 mmol/L (98-107); Creatinine, Serum 0.68 mg/dL (0.55-1.02); EST Glomerular Filtration Rate 111 mL/min (>60); Est Glom Filt Rate - Afr Amer 134 mL/min (>60); Ferritin 1730 ng/mL (8-252); Globulin 4.3 g/dL (2.2-4.2); Glucose 73 mg/dL (74-106); LDH 210 U/L (84-246); Potassium 3.6 mmol/L (3.5-5.1); Protein, Total 7.8 g/dL (6.4-8.2); Sodium Level 139 mmol/L (136-145)
== END ==
PROVIDERS: Family Provider Internal Medicine; PCP Internal Medicine; Visit Provider Internal Medicine Hematology & Oncology
DX: C83.38 Diffuse large B-cell lymphoma, lymph nodes of multiple sites (principal)
CPT/HCPCS: 80053; 82728; 83615; 85652

== ENCOUNTER 2018-01-06 00:39 | Observation (INO) | payer OTHER, SELFPAY ==
[2018-01-06] VITALS (10 sets, daily range): BP systolic 96–133; BP diastolic 65–90; PULSE 69–86; RESP 16–24; TEMP 36.2–36.6; O2SAT 97–100; BMI 22.1; BMI 21.7
--- NOTE | 2018-01-06 01:17 | EKG12_ITS ---
Test Reason : CHEST DISCOMFORT Blood Pressure : / mmHG Vent. Rate : 076 BPM Atrial Rate : 076 BPM P-R Int : 146 ms QRS Dur : 092 ms QT Int : 412 ms P-R-T Axes : 045 053 028 degrees QTc Int : 463 ms Normal sinus rhythm Normal ECG Confirmed by HECTOR PELLETIRE ([id number]), science editor PIOTR KRAUSE ([id number]) on 01/09/2018 2:55:10 PM Referred By: Serafin Mayorga Confirmed By:HECTOR PELLETIER
--- NOTE | 2018-01-06 01:30 | RAD_ITS ---
STUDY: X-RAY CHEST REASON FOR EXAM: Female, 27 years old. Dizziness TECHNIQUE: PA and lateral COMPARISON: 08/06/2017 FINDINGS: The lungs are clear and expanded. There is no demonstrated pleural abnormality. Normal size heart. Normal mediastinum and devon. Normal visualized pulmonary arteries. Normal visualized aortic arch and descending thoracic aorta. Normal visualized thoracic spine. Normal visualized ribs, clavicles, and shoulders. There is no demonstrated abnormality of the visualized soft tissue structures of the upper abdomen. RAD/Chest PA and Lateral IMPRESSION: Normal x-ray examination of the chest. Electronically Signed: Michael Urrutia MD at 2:37 EDT , Service support ,
--- NOTE | 2018-01-06 01:30 | ED.VISSUMM ---
- ER Visit Summary Date of Service: 01/06/18 Chief Complaint: Chest pain [] History of Present Illness: The patient is a 27 F [presents the emergency department with anterior substernal chest pain for the last 3 days. It is worse at night. Is associated with nausea and dizziness. It feels like a sword going straight through to her back and she has back pain as well. No shortness of breath. She is able to eat without any discomfort. She has a history of non-Hodgkin's lymphoma is status post chemotherapy her last chemotherapy was 5 weeks ago. She had an emergency bowel resection several months ago and has a retained hernia with a stitch through the umbilicus. She has chronic abdominal pain and that has been unchanged. He does have congestive heart failure with an EF of 40-45% from her chemotherapy] Physical Examination: [] Blood pressure 114/70 heart rate 86 respiration 17 pulse ox 100% WN WD NAD PERRL EOMI MMM NECK supple and nontender, no masses RRR no murmur rub or gallop, trace edema in the bilateral lower extremities, symmetric radial pulses CTAB no respiratory distress ABDOMEN is soft a she has moderate diffuse tenderness r, normal bowel sounds, no distension, no rebound or guarding SKIN is warm and dry no rashes Alert and Oriented x3, CN II-XII in tact, no motor or sensory deficits, gait normal No lymphadenopathy Test Results: [] Emergency Department Course and Treatment: [EKG was sinus at a rate of 76 with no acute ischemic changes. Screening labs show elevation of her d-dimer CTA shows no PE or dissection. Chest x-ray was unremarkable and BNP was normal. There is no clinical signs of heart failure. Patient continued to complain of pain. I spoke with Dr. Ca who is on-call for cardiology patient was given aspirin ESR and CRP were ordered and patient will be admitted for echocardiogram first thing in the morning. Results were discussed with the patient and she will be admitted to the hospitalist] Treatment Plan: [] Disposition: [Admit] Impression: [1. Chest pain 2. Indeterminate troponin] This note was generated with Turtle Beachation software. It may contain incorrect words, spelling, and punctuation that were not noted in review of the chart prior to signing ED Disposition - Plan for ED Patient: Chief Complaint: Chest Pain Referrals: Juanita Zapata MD [Primary Care Provider] -
[2018-01-06 01:35] LABS: Prothrombin Time (Protime)PT. 13.3 SECONDS (11.7-14.9)
[2018-01-06 01:36] LABS: Absolute Lymphocyte Count 0.31 X10^3/ul (0.83-4.51); Absolute Neutrophil Count 4.3 X10^3/uL (2.0-7.7); Basophil# 0.04 X10^3/uL; Basophil% 0.7 % (0-1); Eosinophil# 0.03 X10^3/uL; Eosinophils% 0.6 % (0-5); Hemoglobin 9.3 g/dl (12.0-15.0); Lymphocyte # 0.31 X10^3/ul (4.0); Lymphocyte % 5.8 % (19-41); Mean Corp Hgb Conc 33.2 g/gl (32-36); Mean Corpuscular Hgb 32.3 pg (27.0-32.0); Mean Corpuscular Volume 97.2 fL (81-99); Mean Platelet Vol. 10.1 fl (6.2-12.0); Monocyte# 0.57 X10^3/uL; Monocyte% 10.6 % (0-10); Neutrophil # 4.34 X10^3/uL (2.7-7.7); Neutrophil % 80.6 % (47-70); Platelet Count 166 K/mm3 (150-450); RBC Distribution Width CV 17.1 % (11.6-14.6); RBC Distribution Width SD 58.2 fl (35.1-43.9); Red Blood Count 2.88 M/mm3 (4.2-5.4); White Blood Count 5.4 K/mm3 (4.4-11.0)
[2018-01-06 01:38] LABS: Differential Indicated SCAN CRITERIA MET; POSITIVE COUNT NO; POSITIVE DIFFERENTIAL YES; POSITIVE MORPHOLOGY NO
[2018-01-06 01:39] LABS: D-Dimer Quantitative (DVT/PE) 1.36 FEU/ug/m (0.27-0.49)
[2018-01-06 01:49] LABS: AST(SGOT) 12 U/L (15-37); Alanine Aminotransfer ALT/SGPT 14 U/L (13-56); Albumin, Serum 3.2 g/dL (3.2-5.0); Alkaline Phosphatase 152 U/L (45-117); Anion Gap 6 (5-15); BUN 13 mg/dL (7-18); BUN/Creat Ratio 19.8 RATIO (10-20); Chloride 107 mmol/L (98-107); Creatinine, Serum 0.66 mg/dL (0.55-1.02); EST Glomerular Filtration Rate 116 mL/min (>60); Est Glom Filt Rate - Afr Amer 141 mL/min (>60); Estimated Creatinine Clearance 131.44 ml/min; Globulin 3.3 g/dL (2.2-4.2); Glucose 83 mg/dL (74-106); Lipase 81 U/L (73-393); Potassium 3.9 mmol/L (3.5-5.1); Protein, Total 6.5 g/dL (6.4-8.2); Sodium Level 139 mmol/L (136-145)
[2018-01-06 01:55] LABS: BNP,B-Type NATRIURETIC PEPTIDE 20.6 pg/mL (0-100)
[2018-01-06 01:57] LABS: Differential Comment SCANNED
[2018-01-06] MEDS: Metoclopramide 10 MG/2 ML Vial 5 MG IV (02:07)
--- NOTE | 2018-01-06 02:11 | CT_ITS ---
STUDY: CTA CHEST REASON FOR EXAM: Female, 27 years old. Chest pain. Lymphoma. RADIATION DOSAGE (If Supplied By Facility): CTDIvol = ( 6.06 ) mGy, DLP = ( 181.22 ) mGycm TECHNIQUE: The examination was performed with the intravenous administration of 75 ml of Isovue 370 contrast material. Post-processing of the angiographic images was performed, with multiplanar reformation and 3D reconstruction. Individualized dose optimization techniques were used for this CT. COMPARISON: 10/24/2017 FINDINGS: Normal enhancement of the main pulmonary artery and right and left pulmonary arteries. Normal enhancement of the bilateral peripheral pulmonary arteries. There is no demonstrated pulmonary embolism. Normal thoracic aorta and visualized great vessels. There is no demonstrated aortic dissection. Normal heart and pericardium. Normal mediastinum. Normal hilar regions. Normal visualized trachea and bronchi. The lungs are well expanded. Normal pulmonary parenchyma. Normal pleura. Normal chest wall structures. Normal osseous structures. Normal visualized upper abdomen. CT/CTA Chest W/WO Contrast IMPRESSION: There is no demonstrated pulmonary embolism. Normal thoracic aorta and visualized great vessels. There is no demonstrated aortic dissection. Normal heart and pericardium. The lungs are well expanded. Normal pulmonary parenchyma. Normal pleura. Electronically Signed: Michael Urrutia MD at 3:29 EDT , Service support ,
[2018-01-06] MEDS: Aspirin 81 MG TAB.CHEW 324 MG PO (03:55)
[2018-01-06] MEDS: Morphine 4 MG/ML Syringe IV (03:57)
[2018-01-06 04:08] LABS: Erythrocyte Sedimentation Rate 62 mm/hr (0-20)
--- NOTE | 2018-01-06 04:24 | PCM.HP.STD ---
Problem List (1) Acute renal failure Status: Resolved (2) Neutropenic fever Status: Resolved (3) Bronchitis Status: Resolved Comment: Possible Asthma, told chronic bronchitis, on albuterol only. (4) CKD (chronic kidney disease), stage II Status: Chronic (5) GERD (gastroesophageal reflux disease) Status: Chronic Qualifiers: (6) Hypercalcemia Status: Chronic (7) Obesity (BMI 30.0-34.9) Status: Chronic (8) Pancytopenia Status: Chronic (9) Sarcoidosis Status: Suspected (10) Atypical chest pain Status: Acute (11) Chronic systolic heart failure Status: Chronic History of Present Illness Date of Admission: 01/06/18 Chief Complaint: Chest pain for 3 days The patient is a 27 year old F with history of NHL, just completed sixth cycle of R CHOP about 3 weeks ago, chronic systolic heart failure with EF 40-45% came to ER with midsternal chest pain radiating to back for last 3 days. She further said it was intermittent on and off and became persistent last night. Chest pain is a little better on sitting/leaning forward. Denies shortness of breath, near syncope or syncope. She denies fever, cough cold or URI symptoms. NHL is mainly abdominal retroperitoneal lymph nodes with hepatosplenomegaly. She had bowel obstruction status post laparoscopic resection and anastomosis. In ED, CT angiogram was done which is negative with no pleural effusion, pneumonia or aortic dissection. [] Past Medical History Past Medical History (Chronic Problems): Chronic Problems Chronic systolic heart failure (Chronic) Pancytopenia (Chronic) Hypercalcemia (Chronic) CKD (chronic kidney disease), stage II (Chronic) Obesity (BMI 30.0-34.9) (Chronic) GERD (gastroesophageal reflux disease) (Chronic) Allergies Penicillins [PCN] Allergy (Verified 01/06/18 00:40) Hives sulfamethoxazole [From Septra] Allergy (Verified 01/06/18 00:40) Shortness of breath trimethoprim [From Septra] Allergy (Verified 01/06/18 00:40) Shortness of breath prochlorperazine [From Compazine] Adverse Reaction (Verified 01/06/18 00:40) Other Home Medications: Ambulatory Orders Medication Instructions Recorded Albuterol IH (ProAir) [Proair Hfa] 2 puff INHALATION Q4H PRN PRN 07/22/17 Cyanocobalamin (Vitamin B-12) 2,500 mcg PO BID 07/22/17 [Vitamin B12] Acetaminophen [Tylenol Tablet] 650 mg PO Q4H PRN PRN 09/19/17 Acyclovir [Zovirax] 400 mg PO BID 09/19/17 Lorazepam [Ativan] 0.5 mg PO Q6H PRN 09/19/17 Melatonin 9 mg PO QHS 09/19/17 Metoprolol Tartrate [Lopressor 25 mg PO DAILY 09/19/17 (beta sammie)] Pantoprazole Sodium [Protonix] 40 mg PO DAILY 09/19/17 Potassium Chloride [K-Dur] 40 meq PO DAILY 09/19/17 Prednisone 10 mg PO DAILY 09/19/17 SimETHICONE [Mylicon] 80 mg PO 4X/DAY PRN PRN 09/19/17 DiphenhydrAMINE [Benadryl] 25 mg PO Q6H PRN PRN 10/24/17 Guaifenesin [Mucus Relief] 600 mg PO BID 10/24/17 Vancomycin 01/06/18 Surgical History: - - Golden teeth, Bone marrow and liver Bx. 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 Denies: Palpitations Respiratory: Reports: Shortness of breath upon exertion - Because of generalized weakness, chronic. Denies: Cough, Shortness of breath at rest, Sputum production Gastrointestinal: Denies: Abdominal Pain, Nausea, Vomiting Genitourinary: Denies: Dysuria Musculoskeletal: Denies: Joint Pain, Joint Tenderness Skin: Denies: Rash, Wounds Neurological: Denies: Numbness, Tingling, Focal weakness Psychiatric: Denies: Anxiety, Depression, Homicidal Ideations, Suicidal Ideations Hematologic/ Lymphatic: Denies: Easy Bruising, Easy Bleeding VTE Information - Inpt Only VTE Present on Admission: No VTE Mechan Device Prophylaxis: SCD's VTE Pharm Prophylaxis ordered?: Yes Patient Problems: Active and Suspected Problems Atypical chest pain (Acute) - Physical Exam General: Alert, Oriented x3, Cooperative HEENT: Atraumatic, PERRLA, EOMI, Normocephalic Neck: Supple, No JVD, Negative Carotid Bruits Lungs: Clear to auscultation, Normal air movement, No rhonchi, No wheeze, No rales Cardiovascular: Regular rate, Regular Rhythm, Normal S1, Normal S2, No murmurs, No rub noted, - - No pericardial rub Abdomen: Bowel Sounds Present, Soft, Non Tender, Non-Distended, Hepatomegaly, Splenomegaly Extremities: No edema, Capillary Refill Less than 3 Seconds Skin: No rashes, No breakdown Musculoskeletal: No Tenderness to Palpation of Joints or Extremities Neurological: Cranial nerves II-XII grossly intact Psych/Mental Status: Normal Affect, Appropriate Vital Signs Temp Pulse Resp BP Pulse Ox 97.2 F L 86 16 119/90 H 100 01/06/18 03:50 01/06/18 04:02 01/06/18 04:02 01/06/18 04:02 01/06/18 04:02 Oxygen Delivery Method Room Air Assessment/Plan Active and Suspected Problems Atypical chest pain (Acute) The patient is a 27 year old F with history of NHL, just completed sixth cycle of R CHOP about 3 weeks ago, chronic systolic heart failure with EF 40-45% came to ER with midsternal chest pain radiating to back for last 3 days. She further said it was intermittent on and off and became persistent last night. Chest pain is a little better on sitting/leaning forward. Denies shortness of breath, near syncope or syncope. She denies fever, cough cold or URI symptoms. NHL is mainly abdominal retroperitoneal lymph nodes with hepatosplenomegaly. She had bowel obstruction status post laparoscopic resection and anastomosis. In ED, CT angiogram was done which is negative with no pleural effusion, pneumonia or aortic dissection. 1. Atypical chest pain, probably acute pericarditis, rule out ACS: Patient has first troponin slightly elevated, 0.07, CRP 14.8. The patient is being admitted in PCU for cardiopulmonary monitoring. Serial cardiac enzymes. On Motrin 800 mg every 6 hourly as needed for chest pain. Patient already on prednisone 10 mg daily. Cardiology consult to Dr. Ca; Dr. Escalera already discussed with Dr. Ca and he suggested 2D echo. 2. Chronic systolic heart failure, most probably from chemotherapeutic side effect; R-CHOP: Patient had echo in December 20, 2017 which shows EF 40-45% with moderate global hypokinesis of left ventricle. Normal diastolic. 3. Non-Hodgkin's lymphoma, mainly abdominal retroperitoneal lymph nodes and hepatosplenomegaly: Follows Dr. Felix. 4. Other chronic comorbidities mild pancytopenia, CKD stage II, GERD and and history of small bowel obstruction status post resection and anastomosis admission above: Stable. Home medication reconciliation done. DVT prophylaxis: On heparin 5000 units subcutaneous twice daily and bilateral SCDs. Discontinue if drop in hemoglobin or platelet. Laboratory Results 01/06/18 01:14: WBC 5.4, RBC 2.88 L, Hgb 9.3 L, Hct 28.0 L, MCV 97.2, MCH 32.3 H, MCHC 33.2, RDW 17.1 H, RDW Differential 58.2 H, Plt Count 166, MPV 10.1, Immature Gran % (Auto) 1.700 H, Neut % (Auto) 80.6 H, Lymph % (Auto) 5.8 L, [place] % (Auto) 10.6 H, Eos % (Auto) 0.6, Baso % (Auto) 0.7, Absolute Neuts (auto) 4.3, Absolute Lymphs (auto) 0.31 L, Total Counted Not Reportable, Differential Comment SCANNED 01/06/18 01:14: PT 13.3, INR 1.0, D-Dimer Quant (PE/DVT) 1.36 H* 01/06/18 01:14: Sodium 139, Potassium 3.9, Chloride 107, Carbon Dioxide 26.0, Anion Gap 6, BUN 13, Creatinine 0.66, Estim Creat Clear Calc 131.44, Est GFR (MDRD) Af Amer 141, Est GFR (MDRD) Non-Af 116, BUN/Creatinine Ratio 19.8, Glucose 83, Calcium 9.0, Total Bilirubin 0.20, AST 12 L, ALT 14, Alkaline Phosphatase 152 H, Troponin I 0.07 H, Total Protein 6.5, Albumin 3.2, Globulin 3.3, Albumin/Globulin Ratio 1.0, Lipase 81 01/06/18 01:14: B-Natriuretic Peptide 20.6 01/06/18 01:14: ESR 62 H 01/06/18 01:14: C-React Prot Ext Range 14.80 H Clinical Impression(s) from Imaging Studies Chest X-Ray 01/06/18 01:30 IMPRESSION: Normal x-ray examination of the chest. Chest CTA 01/06/18 02:11 IMPRESSION: There is no demonstrated pulmonary embolism. Normal thoracic aorta and visualized great vessels. There is no demonstrated aortic dissection. Normal heart and pericardium. The lungs are well expanded. Normal pulmonary parenchyma. Normal pleura. This note was generated with Overwatch dictation software. Every effort was made to ensure accuracy, however computerized propagation manager mistakes may persist. Code Visit OBSV E&M: 34308 Initial observation care L3
--- NOTE | 2018-01-06 04:36 | HP.PCM_ITS ---
Problem List (1) Acute renal failure Status: Resolved (2) Neutropenic fever Status: Resolved (3) Bronchitis Status: Resolved Comment: Possible Asthma, told chronic bronchitis, on albuterol only. (4) CKD (chronic kidney disease), stage II Status: Chronic (5) GERD (gastroesophageal reflux disease) Status: Chronic Qualifiers: (6) Hypercalcemia Status: Chronic (7) Obesity (BMI 30.0-34.9) Status: Chronic (8) Pancytopenia Status: Chronic (9) Sarcoidosis Status: Suspected (10) Atypical chest pain Status: Acute (11) Chronic systolic heart failure Status: Chronic History of Present Illness Date of Admission: 01/06/18 Chief Complaint: Chest pain for 3 days The patient is a 27 year old F with history of NHL, just completed sixth cycle of R CHOP about 3 weeks ago, chronic systolic heart failure with EF 40-45% came to ER with midsternal chest pain radiating to back for last 3 days. She further said it was intermittent on and off and became persistent last night. Chest pain is a little better on sitting/leaning forward. Denies shortness of breath, near syncope or syncope. She denies fever, cough cold or URI symptoms. NHL is mainly abdominal retroperitoneal lymph nodes with hepatosplenomegaly. She had bowel obstruction status post laparoscopic resection and anastomosis. In ED, CT angiogram was done which is negative with no pleural effusion, pneumonia or aortic dissection. [] Past Medical History Past Medical History (Chronic Problems): Chronic Problems Chronic systolic heart failure (Chronic) Pancytopenia (Chronic) Hypercalcemia (Chronic) CKD (chronic kidney disease), stage II (Chronic) Obesity (BMI 30.0-34.9) (Chronic) GERD (gastroesophageal reflux disease) (Chronic) Allergies Penicillins [PCN] Allergy (Verified 01/06/18 00:40) Hives sulfamethoxazole [From Septra] Allergy (Verified 01/06/18 00:40) Shortness of breath trimethoprim [From Septra] Allergy (Verified 01/06/18 00:40) Shortness of breath prochlorperazine [From Compazine] Adverse Reaction (Verified 01/06/18 00:40) Other Home Medications: Ambulatory Orders Medication Instructions Recorded Albuterol IH (ProAir) [Proair Hfa] 2 puff INHALATION Q4H PRN PRN 07/22/17 Cyanocobalamin (Vitamin B-12) 2,500 mcg PO BID 07/22/17 [Vitamin B12] Acetaminophen [Tylenol Tablet] 650 mg PO Q4H PRN PRN 09/19/17 Acyclovir [Zovirax] 400 mg PO BID 09/19/17 Lorazepam [Ativan] 0.5 mg PO Q6H PRN 09/19/17 Melatonin 9 mg PO QHS 09/19/17 Metoprolol Tartrate [Lopressor 25 mg PO DAILY 09/19/17 (beta sammie)] Pantoprazole Sodium [Protonix] 40 mg PO DAILY 09/19/17 Potassium Chloride [K-Dur] 40 meq PO DAILY 09/19/17 Prednisone 10 mg PO DAILY 09/19/17 SimETHICONE [Mylicon] 80 mg PO 4X/DAY PRN PRN 09/19/17 DiphenhydrAMINE [Benadryl] 25 mg PO Q6H PRN PRN 10/24/17 Guaifenesin [Mucus Relief] 600 mg PO BID 10/24/17 Vancomycin 01/06/18 Surgical History: - - [place] teeth, Bone marrow and liver Bx. 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 Denies: Palpitations Respiratory: Reports: Shortness of breath upon exertion - Because of generalized weakness, chronic. Denies: Cough, Shortness of breath at rest, Sputum production Gastrointestinal: Denies: Abdominal Pain, Nausea, Vomiting Genitourinary: Denies: Dysuria Musculoskeletal: Denies: Joint Pain, Joint Tenderness Skin: Denies: Rash, Wounds Neurological: Denies: Numbness, Tingling, Focal weakness Psychiatric: Denies: Anxiety, Depression, Homicidal Ideations, Suicidal Ideations Hematologic/ Lymphatic: Denies: Easy Bruising, Easy Bleeding VTE Information - Inpt Only VTE Present on Admission: No VTE Mechan Device Prophylaxis: SCD's VTE Pharm Prophylaxis ordered?: Yes Patient Problems: Active and Suspected Problems Atypical chest pain (Acute) - Physical Exam General: Alert, Oriented x3, Cooperative HEENT: Atraumatic, PERRLA, EOMI, Normocephalic Neck: Supple, No JVD, Negative Carotid Bruits Lungs: Clear to auscultation, Normal air movement, No rhonchi, No wheeze, No rales Cardiovascular: Regular rate, Regular Rhythm, Normal S1, Normal S2, No murmurs, No rub noted, - - No pericardial rub Abdomen: Bowel Sounds Present, Soft, Non Tender, Non-Distended, Hepatomegaly, Splenomegaly Extremities: No edema, Capillary Refill Less than 3 Seconds Skin: No rashes, No breakdown Musculoskeletal: No Tenderness to Palpation of Joints or Extremities Neurological: Cranial nerves II-XII grossly intact Psych/Mental Status: Normal Affect, Appropriate Vital Signs Temp Pulse Resp BP Pulse Ox 97.2 F L 86 16 119/90 H 100 01/06/18 03:50 01/06/18 04:02 01/06/18 04:02 01/06/18 04:02 01/06/18 04:02 Oxygen Delivery Method Room Air Assessment/Plan Active and Suspected Problems Atypical chest pain (Acute) The patient is a 27 year old F with history of NHL, just completed sixth cycle of R CHOP about 3 weeks ago, chronic systolic heart failure with EF 40-45% came to ER with midsternal chest pain radiating to back for last 3 days. She further said it was intermittent on and off and became persistent last night. Chest pain is a little better on sitting/leaning forward. Denies shortness of breath, near syncope or syncope. She denies fever, cough cold or URI symptoms. NHL is mainly abdominal retroperitoneal lymph nodes with hepatosplenomegaly. She had bowel obstruction status post laparoscopic resection and anastomosis. In ED, CT angiogram was done which is negative with no pleural effusion, pneumonia or aortic dissection. 1. Atypical chest pain, probably acute pericarditis, rule out ACS: Patient has first troponin slightly elevated, 0.07, CRP 14.8. The patient is being admitted in PCU for cardiopulmonary monitoring. Serial cardiac enzymes. On Motrin 800 mg every 6 hourly as needed for chest pain. Patient already on prednisone 10 mg daily. Cardiology consult to Dr. Ca; Dr. Escalera already discussed with Dr. Ca and he suggested 2D echo. 2. Chronic systolic heart failure, most probably from chemotherapeutic side effect; R-CHOP: Patient had echo in December 20, 2017 which shows EF 40-45% with moderate global hypokinesis of left ventricle. Normal diastolic. 3. Non-Hodgkin's lymphoma, mainly abdominal retroperitoneal lymph nodes and hepatosplenomegaly: Follows Dr. Felix. 4. Other chronic comorbidities mild pancytopenia, CKD stage II, GERD and and history of small bowel obstruction status post resection and anastomosis admission above: Stable. Home medication reconciliation done. DVT prophylaxis: On heparin 5000 units subcutaneous twice daily and bilateral SCDs. Discontinue if drop in hemoglobin or platelet. Laboratory Results 01/06/18 01:14: WBC 5.4, RBC 2.88 L, Hgb 9.3 L, Hct 28.0 L, MCV 97.2, MCH 32.3 H , MCHC 33.2, RDW 17.1 H, RDW Differential 58.2 H, Plt Count 166, MPV 10.1, Immature Gran % (Auto) 1.700 H, Neut % (Auto) 80.6 H, Lymph % (Auto) 5.8 L, Early % (Auto) 10.6 H, Eos % (Auto) 0.6, Baso % (Auto) 0.7, Absolute Neuts (auto ) 4.3, Absolute Lymphs (auto) 0.31 L, Total Counted Not Reportable, Differential Comment SCANNED 01/06/18 01:14: PT 13.3, INR 1.0, D-Dimer Quant (PE/DVT) 1.36 H* 01/06/18 01:14: Sodium 139, Potassium 3.9, Chloride 107, Carbon Dioxide 26.0, Anion Gap 6, BUN 13, Creatinine 0.66, Estim Creat Clear Calc 131.44, Est GFR ( MDRD) Af Amer 141, Est GFR (MDRD) Non-Af 116, BUN/Creatinine Ratio 19.8, Glucose 83, Calcium 9.0, Total Bilirubin 0.20, AST 12 L, ALT 14, Alkaline Phosphatase 152 H, Troponin I 0.07 H, Total Protein 6.5, Albumin 3.2, Globulin 3.3, Albumin/Globulin Ratio 1.0, Lipase 81 01/06/18 01:14: B-Natriuretic Peptide 20.6 01/06/18 01:14: ESR 62 H 01/06/18 01:14: C-React Prot Ext Range 14.80 H Clinical Impression(s) from Imaging Studies Chest X-Ray 01/06/18 01:30 IMPRESSION: Normal x-ray examination of the chest. Chest CTA 01/06/18 02:11 IMPRESSION: There is no demonstrated pulmonary embolism. Normal thoracic aorta and visualized great vessels. There is no demonstrated aortic dissection. Normal heart and pericardium. The lungs are well expanded. Normal pulmonary parenchyma. Normal pleura. This note was generated with [employer] dictation software. Every effort was made to ensure accuracy, however computerized lion hunter mistakes may persist. Code Visit OBSV E&M: 78167 Initial observation care L3
--- NOTE | 2018-01-06 05:55 | ECHOD_ITS ---
Reason For Study: Chest Pain Procedure This was a 2D Doppler, Color Flow transthoracic echocardiogram. Exam performed portable in patient room. Left Ventricle Normal size and thickness. The estimated ejection fraction is 45-50 %. There is mild global hypokinesis of the left ventricle. Right Ventricle Normal size and thickness. Normal systolic function. Atria Normal left atrium. Normal right atrium. Normal atrial septum. Mitral Valve The mitral valve is structurally normal. No prolapse or stenosis seen. Trivial mitral valve insufficiency. Tricuspid Valve Normal tricuspid valve. Trivial tricuspid valve insufficiency. Right ventricular systolic pressure estimated to be 17 mmHg. Aortic Valve Normal aortic valve. Trisinus/trileaflet aortic valve. Pulmonic Valve Normal pulmonic valve. Great Vessels Normal aortic root. Normal arch. Normal inferior vena cava. Inferior vena cava collapse with sniff. Pericardium/Pleural No pericardial effusion. There is no pleural effusion. MMode/2D Measurements & Calculations LVIDd: 4.1 cm IVSd: 0.85 cm Ao root diam: 2.4 cm LVIDs: 3.0 cm LVPWd: 0.85 cm LA dimension: 3.1 cm RVDd: 2.5 cm FS: 26.2 % LAV(MOD-bp): 22.2 ml LA A4 area: 9.8 cm2 RA A4 area: 7.6 cm2 LAV(MOD-sp2): 25.9 ml LAV(MOD-sp4): 16.0 ml Doppler Measurements & Calculations MV E max francis: 93.7 cm/sec Lat Peak E' Francis: 17.4 cm/sec Med Peak E' Francis: 11.4 cm/sec MV A max francis: 63.8 cm/sec E/E' lat: 5.4 E/E' med: 8.3 MV E/A: 1.5 Ao V2 max: 132.0 cm/sec LV V1 max: 93.1 cm/sec PA V2 max: 98.2 cm/sec Ao max P.0 mmHg LV V1 max P.5 mmHg Ao V2 mean: 91.1 cm/sec Ao mean P.7 mmHg Ao V2 VTI: 25.3 cm TR max francis: 174.6 cm/sec TR max P.2 mmHg Interpretation Summary The estimated ejection fraction is 45-50 %. There is mild global hypokinesis of the left ventricle. Trivial mitral valve insufficiency. Trivial tricuspid valve insufficiency. Right ventricular systolic pressure estimated to be 17 mmHg. Compared to echo report dated 12/20/2017, LV function appears to have mildly improved. No evidence of pericardial effusion. Ordering Physician: Connor Taylor Referring Physician: Juanita Zapata Performed By: Do Rangel, KIERAN, RVT
[2018-01-06 06:10] LABS: Cholesterol 183 mg/dL (200); High Density Lipoprotein 37 mg/dL; Thyroid Stim Hormone (TSH) 6.59 uIU/mL (0.358-3.74); Triglycerides 229 mg/dL; Very Low Density Lipoprotein 46 mg/dL (5-40)
--- NOTE | 2018-01-06 09:46 | PCM.CONS.C ---
Problem List (1) Atypical chest pain Status: Acute Reason for Consult Date of Consultation: 01/06/18 Reason for Consultation: Atypical chest pain, pericarditis/pleuritis, History of Present Illness: The patient is a 27 year old F, patient of Dr. Campbell who sees her for mild LV dysfunction status post chemotherapy with a history of non-Hodgkin's lymphoma diagnosed in July 2017. At that time the patient developed a bowel rupture requiring emergency bowel resection on 08/06/17. She did not have a colostomy but did have some oozing through her suture site. She was then diagnosed soon after that with non-Hodgkin's lymphoma and has subsequently undergone 6 rounds of chemotherapy specifically R CHOP, the most recent one being last week. Patient during that time had an episode of tachycardia requiring metoprolol therapy and echocardiogram 2 weeks ago diagnosed LV dysfunction with an EF around 45%. She was then referred to Dr. Campbell for cardiac management. On further history she is a nondiabetic, non-smoker, no previous known coronary disease, negative family history, and does not have hypercholesterolemia. Patient states that she has not been recommended to undergo any further chemotherapy and is recently had her prednisone component tapered to every other day. Approximately 3 days ago the patient developed new onset midsternal chest pain radiating to her back, worse when she lays down, better when she sits forward. When her symptoms worsened last evening she sought medical attention at [facility] ER. An EKG was performed which showed normal sinus rhythm, no acute changes, no IL depression. Initial troponin was 0.07. In addition her d-dimer was slightly elevated so she underwent a CTA of her chest which was negative for pulmonary embolism, pleural effusion, or pericardial effusion. Her CRP and sed rate were both markedly elevated. The patient was started on ibuprofen, and her symptoms have completely resolved. Repeat echo is pending. Past Medical History Allergies/Adverse Reactions: Allergies Penicillins [PCN] Allergy (Verified 01/06/18 00:40) Hives sulfamethoxazole [From Septra] Allergy (Verified 01/06/18 00:40) Shortness of breath trimethoprim [From Septra] Allergy (Verified 01/06/18 00:40) Shortness of breath prochlorperazine [From Compazine] Adverse Reaction (Verified 01/06/18 00:40) Other Home Medications: Ambulatory Orders Medication Instructions Recorded Albuterol IH (ProAir) [Proair Hfa] 2 puff INHALATION Q4H PRN PRN 07/22/17 Cyanocobalamin (Vitamin B-12) 2,500 mcg PO BID 07/22/17 [Vitamin B12] Acetaminophen [Tylenol Tablet] 650 mg PO Q4H PRN PRN 09/19/17 Acyclovir [Zovirax] 400 mg PO BID 09/19/17 Lorazepam [Ativan] 0.5 mg PO Q6H PRN 09/19/17 Melatonin 9 mg PO QHS 09/19/17 Metoprolol Tartrate [Lopressor 25 mg PO DAILY 09/19/17 (beta sammie)] Pantoprazole Sodium [Protonix] 40 mg PO DAILY 09/19/17 Potassium Chloride [K-Dur] 40 meq PO DAILY 09/19/17 Prednisone 10 mg PO DAILY 09/19/17 SimETHICONE [Mylicon] 80 mg PO 4X/DAY PRN PRN 09/19/17 DiphenhydrAMINE [Benadryl] 25 mg PO Q6H PRN PRN 10/24/17 Guaifenesin [Mucus Relief] 600 mg PO BID 10/24/17 Vancomycin 01/06/18 Past Medical History (Chronic Problems): Chronic Problems Chronic systolic heart failure (Chronic) Pancytopenia (Chronic) Hypercalcemia (Chronic) CKD (chronic kidney disease), stage II (Chronic) Obesity (BMI 30.0-34.9) (Chronic) GERD (gastroesophageal reflux disease) (Chronic) Surgical History: - - [place] teeth, Bone marrow and liver Bx. 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 Denies: Shortness of Breath, Orthopnea, PND, Peripheral Edema, Palpitations, Lightheadedness, Dizziness, Near Syncope, Syncope Respiratory: Reports: Pleurtic Chest Pain. Denies: Cough, Sputum Production, Hemoptysis Gastrointestinal: Denies: Hematemesis, Hematochezia, Melena Genitourinary: Denies: Dysuria, Hematuria Skin: Denies: Rash Subjectve: Patient resting comfortably in bed, laying down flat without difficulty, no acute events. Telemetry shows normal sinus rhythm. Objective: Vital Signs Temp Pulse Resp BP Pulse Ox 97.9 F 75 18 111/69 99 01/06/18 04:45 01/06/18 07:00 01/06/18 04:45 01/06/18 04:45 01/06/18 04:45 Oxygen Delivery Method Room Air Weight: 142 lb 10.225 oz Body Mass Index (BMI) 21.7 Intake and Output for Last 24 Hours 01/04/18 01/05/18 01/06/18 23:59 23:59 23:59 Intake Total 0 / 0 Output Total 0 / 0 Balance 0 / 0 General: Awake, Alert, Oriented x 3 HEENT: PERRL, EOMI, Sclera Non Icteric Neck: Supple, Good ROM, No Lymph Node Enlargement Lungs: Clear to auscultation Cardiovascular: Regular Rhythm, Normal S1, Normal S2, No Murmurs, No Rubs, No Gallops Vascular: No Carotid Bruits, Normal Femoral Pulses, Normal Radial Pulses, Normal Dorsalis Pedal Pulse, Normal Posterior Tibial Pulses Abdomen: Bowel Sounds Present, Soft, Non Tender, No HSM, No Organomegaly Extremities: No Cyanosis, No Clubbing, No edema Neurological: No Focal Motor or Sensory Deficit 01/06/18 05:30: Triglycerides 229 H, Cholesterol 183, LDL Cholesterol 100, VLDL Cholesterol 46 H, HDL Cholesterol 37 L 01/06/18 05:30: Troponin I 0.08 H Rhythm: As above EKG: As above ECHO: Pending Stress Test: Cardiac Cath: PCI: CT Surgery: Holter monitor: EPS: PPM: CXR: Chest CT Scan: Assessment/Plan 1. Pleuritic chest pain: The patient has evidence and signs and symptoms of pleuritic type chest pain, worse when she lays down and better when she sits forward, elevated CRP and elevated sed rate. Her mildly abnormal troponins are most likely a result of her pericarditis and inflammatory response. Her prednisone has recently been reduced to every other day. Patient was started on ibuprofen 400 mg every 6 hours, and her chest pain is completely resolved. When I explained this to the patient she and her significant other expressed concern about ibuprofen as they were told that she may have some splenic or liver nodules that may preclude her from taking ibuprofen. I attempted to contact her primary hematology oncologist Dr. Dodson, but as he was not software developer consultant and was referred to the on-call hematology oncologist. He researched the patient's condition and demonstrated that she had a history of sarcoidosis, and saw no contraindication to ibuprofen going forward. Another option would be to increase her prednisone back to every day. Now that she is getting some relief from her ibuprofen I would recommend ibuprofen 400 mg p.o. every 8 hours ?5 days to resolve her inflammation. Would also recommend continuing her tapering dose of prednisone to every other day. If her symptoms recur despite ibuprofen another option would be to give her a burst of steroids taper from there. I have recommended a repeat echocardiogram just to make sure she has not developed any significant pericardial effusion although her CT scan did not demonstrate this, it is a poor supervisor stitching department of pericardial effusion size. If she has no pericardial effusion and no additional deterioration of her LV function from 12/20/17, I would continue her beta-sammie therapy with metoprolol 25 mg p.o. twice daily. At this point I do not believe she requires a stress test or catheterization given her risk factors for coronary disease. 2. Patient may be discharged home if her echocardiogram is negative for pericardial effusion. Thank you very much for the opportunity to participate in the cardiac care of your patient. Consultation time took place between 830 and 9 AM. Code Visit Inpatient E&M: 48239 Init Hosp L2
[2018-01-06] MEDS: Metoprolol Tartrate 25 MG Tablet PO (09:51)
[2018-01-06] MEDS: predniSONE 10 MG Tablet PO (09:51)
[2018-01-06] MEDS: Pantoprazole Sodium 40 MG Tablet PO (09:52)
[2018-01-06] MEDS: Acyclovir 200 MG Capsule 400 MG PO (09:52)
--- NOTE | 2018-01-06 09:54 | CON.PCM_ITS ---
Problem List (1) Atypical chest pain Status: Acute Reason for Consult Date of Consultation: 01/06/18 Reason for Consultation: Atypical chest pain, pericarditis/pleuritis, History of Present Illness: The patient is a 27 year old F, patient of Dr. Campbell who sees her for mild LV dysfunction status post chemotherapy with a history of non-Hodgkin's lymphoma diagnosed in July 2017. At that time the patient developed a bowel rupture requiring emergency bowel resection on 08/06/17. She did not have a colostomy but did have some oozing through her suture site. She was then diagnosed soon after that with non-Hodgkin's lymphoma and has subsequently undergone 6 rounds of chemotherapy specifically R CHOP, the most recent one being last week. Patient during that time had an episode of tachycardia requiring metoprolol therapy and echocardiogram 2 weeks ago diagnosed LV dysfunction with an EF around 45%. She was then referred to Dr. Campbell for cardiac management. On further history she is a nondiabetic, non-smoker, no previous known coronary disease, negative family history, and does not have hypercholesterolemia. Patient states that she has not been recommended to undergo any further chemotherapy and is recently had her prednisone component tapered to every other day. Approximately 3 days ago the patient developed new onset midsternal chest pain radiating to her back, worse when she lays down, better when she sits forward. When her symptoms worsened last evening she sought medical attention at [facility] ER. An EKG was performed which showed normal sinus rhythm, no acute changes, no IA depression. Initial troponin was 0.07. In addition her d-dimer was slightly elevated so she underwent a CTA of her chest which was negative for pulmonary embolism, pleural effusion, or pericardial effusion. Her CRP and sed rate were both markedly elevated. The patient was started on ibuprofen, and her symptoms have completely resolved. Repeat echo is pending. Past Medical History Allergies/Adverse Reactions: Allergies Penicillins [PCN] Allergy (Verified 01/06/18 00:40) Hives sulfamethoxazole [From Septra] Allergy (Verified 01/06/18 00:40) Shortness of breath trimethoprim [From Septra] Allergy (Verified 01/06/18 00:40) Shortness of breath prochlorperazine [From Compazine] Adverse Reaction (Verified 01/06/18 00:40) Other Home Medications: Ambulatory Orders Medication Instructions Recorded Albuterol IH (ProAir) [Proair Hfa] 2 puff INHALATION Q4H PRN PRN 07/22/17 Cyanocobalamin (Vitamin B-12) 2,500 mcg PO BID 07/22/17 [Vitamin B12] Acetaminophen [Tylenol Tablet] 650 mg PO Q4H PRN PRN 09/19/17 Acyclovir [Zovirax] 400 mg PO BID 09/19/17 Lorazepam [Ativan] 0.5 mg PO Q6H PRN 09/19/17 Melatonin 9 mg PO QHS 09/19/17 Metoprolol Tartrate [Lopressor 25 mg PO DAILY 09/19/17 (beta sammie)] Pantoprazole Sodium [Protonix] 40 mg PO DAILY 09/19/17 Potassium Chloride [K-Dur] 40 meq PO DAILY 09/19/17 Prednisone 10 mg PO DAILY 09/19/17 SimETHICONE [Mylicon] 80 mg PO 4X/DAY PRN PRN 09/19/17 DiphenhydrAMINE [Benadryl] 25 mg PO Q6H PRN PRN 10/24/17 Guaifenesin [Mucus Relief] 600 mg PO BID 10/24/17 Vancomycin 01/06/18 Past Medical History (Chronic Problems): Chronic Problems Chronic systolic heart failure (Chronic) Pancytopenia (Chronic) Hypercalcemia (Chronic) CKD (chronic kidney disease), stage II (Chronic) Obesity (BMI 30.0-34.9) (Chronic) GERD (gastroesophageal reflux disease) (Chronic) Surgical History: - - [place] teeth, Bone marrow and liver Bx. 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 Denies: Shortness of Breath, Orthopnea, PND, Peripheral Edema, Palpitations, Lightheadedness, Dizziness, Near Syncope, Syncope Respiratory: Reports: Pleurtic Chest Pain. Denies: Cough, Sputum Production, Hemoptysis Gastrointestinal: Denies: Hematemesis, Hematochezia, Melena Genitourinary: Denies: Dysuria, Hematuria Skin: Denies: Rash Subjectve: Patient resting comfortably in bed, laying down flat without difficulty, no acute events. Telemetry shows normal sinus rhythm. Objective: Vital Signs Temp Pulse Resp BP Pulse Ox 97.9 F 75 18 111/69 99 01/06/18 04:45 01/06/18 07:00 01/06/18 04:45 01/06/18 04:45 01/06/18 04:45 Oxygen Delivery Method Room Air Weight: 142 lb 10.225 oz Body Mass Index (BMI) 21.7 Intake and Output for Last 24 Hours 01/04/18 01/05/18 01/06/18 23:59 23:59 23:59 Intake Total 0 / 0 Output Total 0 / 0 Balance 0 / 0 General: Awake, Alert, Oriented x 3 HEENT: PERRL, EOMI, Sclera Non Icteric Neck: Supple, Good ROM, No Lymph Node Enlargement Lungs: Clear to auscultation Cardiovascular: Regular Rhythm, Normal S1, Normal S2, No Murmurs, No Rubs, No Gallops Vascular: No Carotid Bruits, Normal Femoral Pulses, Normal Radial Pulses, Normal Dorsalis Pedal Pulse, Normal Posterior Tibial Pulses Abdomen: Bowel Sounds Present, Soft, Non Tender, No HSM, No Organomegaly Extremities: No Cyanosis, No Clubbing, No edema Neurological: No Focal Motor or Sensory Deficit 01/06/18 05:30: Triglycerides 229 H, Cholesterol 183, LDL Cholesterol 100, VLDL Cholesterol 46 H, HDL Cholesterol 37 L 01/06/18 05:30: Troponin I 0.08 H Rhythm: As above EKG: As above ECHO: Pending Stress Test: Cardiac Cath: PCI: CT Surgery: Holter monitor: EPS: PPM: CXR: Chest CT Scan: Assessment/Plan 1. Pleuritic chest pain: The patient has evidence and signs and symptoms of pleuritic type chest pain, worse when she lays down and better when she sits forward, elevated CRP and elevated sed rate. Her mildly abnormal troponins are most likely a result of her pericarditis and inflammatory response. Her prednisone has recently been reduced to every other day. Patient was started on ibuprofen 400 mg every 6 hours, and her chest pain is completely resolved. When I explained this to the patient she and her significant other expressed concern about ibuprofen as they were told that she may have some splenic or liver nodules that may preclude her from taking ibuprofen. I attempted to contact her primary hematology oncologist Dr. Dodson, but as he was not air support operations operator and was referred to the on-call hematology oncologist. He researched the patient's condition and demonstrated that she had a history of sarcoidosis, and saw no contraindication to ibuprofen going forward. Another option would be to increase her prednisone back to every day. Now that she is getting some relief from her ibuprofen I would recommend ibuprofen 400 mg p.o. every 8 hours ?5 days to resolve her inflammation. Would also recommend continuing her tapering dose of prednisone to every other day. If her symptoms recur despite ibuprofen another option would be to give her a burst of steroids taper from there. I have recommended a repeat echocardiogram just to make sure she has not developed any significant pericardial effusion although her CT scan did not demonstrate this, it is a poor orthopedic physician assistant of pericardial effusion size. If she has no pericardial effusion and no additional deterioration of her LV function from 12/20/17, I would continue her beta-sammie therapy with metoprolol 25 mg p.o. twice daily. At this point I do not believe she requires a stress test or catheterization given her risk factors for coronary disease. 2. Patient may be discharged home if her echocardiogram is negative for pericardial effusion. Thank you very much for the opportunity to participate in the cardiac care of your patient. Consultation time took place between 830 and 9 AM. Code Visit Inpatient E&M: 12417 Init Hosp L2
--- NOTE | 2018-01-06 10:36 | DCINST_ITS ---
- Discharge Diagnoses Current Active Problems: Current Active and Chronic Problems Atypical chest pain (Acute) Chronic systolic heart failure (Chronic) You will use the following diet at home:: Cardiac Discharge Activity: Return to Normal Activity Call your doctor if you observe: Shortness of breath, Dizziness, Fainting spells , Chest pain, Increased palpitations (irregular heartbeat) Allergies/Adverse Reactions: Allergies Penicillins [PCN] Allergy (Verified 01/06/18 00:40) Hives sulfamethoxazole [From Septra] Allergy (Verified 01/06/18 00:40) Shortness of breath trimethoprim [From Septra] Allergy (Verified 01/06/18 00:40) Shortness of breath prochlorperazine [From Compazine] Adverse Reaction (Verified 01/06/18 00:40) Other Medications to take at Discharge Albuterol IH (ProAir) [Proair Hfa] 2 puff INHALATION Q4H PRN PRN 07/22/17 Cyanocobalamin (Vitamin B-12) [Vitamin B12] 2,500 mcg PO BID 07/22/17 Acetaminophen [Tylenol Tablet] 650 mg PO Q4H PRN PRN 09/19/17 Acyclovir [Zovirax] 400 mg PO BID 09/19/17 Lorazepam [Ativan] 0.5 mg PO Q6H PRN 09/19/17 Melatonin 9 mg PO QHS 09/19/17 Metoprolol Tartrate [Lopressor (beta sammie)] 25 mg PO DAILY 09/19/17 Pantoprazole Sodium [Protonix] 40 mg PO DAILY 09/19/17 Potassium Chloride [K-Dur] 40 meq PO DAILY 09/19/17 Prednisone 10 mg PO DAILY 09/19/17 SimETHICONE [Mylicon] 80 mg PO 4X/DAY PRN PRN 09/19/17 DiphenhydrAMINE [Benadryl] 25 mg PO Q6H PRN PRN 10/24/17 Guaifenesin [Mucus Relief] 600 mg PO BID 10/24/17 Ibuprofen [Motrin] 400 mg PO Q8H #15 tab 01/06/18 Vancomycin 01/06/18 The following prescriptions were given: Ibuprofen [Motrin] 400 mg PO Q8H #15 tab Primary Care Physician: Juanita Zapata MD [Primary Care Provider] - Please follow up with your Primary Care Physician in: 1 Week Please Follow Up With: Yuan Ramirez MD When: As scheduled Please Follow Up With: Shon Felix DO When: As scheduled Proposed Discharge Date: 01/06/18
--- NOTE | 2018-01-06 10:37 | PCM.DC.SUM ---
<Valeria Pozo - Last Filed: 01/06/18 10:48> Discharge Date and Diagnosis Date of Admission: 01/06/18 Date of Discharge: 01/06/18 - Primary Discharge Diagnosis Active and Suspected Problems 1. Pleuritic chest pain 2. Indeterminate troponin - Secondary Discharge Diagnosis Chronic Problems Chronic systolic heart failure (Chronic) Pancytopenia (Chronic) Hypercalcemia (Chronic) CKD (chronic kidney disease), stage II (Chronic) Obesity (BMI 30.0-34.9) (Chronic) GERD (gastroesophageal reflux disease) (Chronic) Hospital Course and Treatment Imaging Results: Diagnostic Data Chest X-Ray 01/06/18 01:30 IMPRESSION: Normal x-ray examination of the chest. Electronically Signed: Michael Urrutia MD at 2:37 EDT , Service support , Chest CTA 01/06/18 02:11 IMPRESSION: There is no demonstrated pulmonary embolism. Normal thoracic aorta and visualized great vessels. There is no demonstrated aortic dissection. Normal heart and pericardium. The lungs are well expanded. Normal pulmonary parenchyma. Normal pleura. Electronically Signed: Michael Urrutia MD at 3:29 EDT , Service support , Dr. Ca- Cardiology Operations: None Procedures: 2-D Echocardiogram Summary of Care Provided: The patient is a 27 year old F admitted 01/05/18 due to chest pain. She has a past medical history of non-Hodgkin's lymphoma recently completing 6 cycle of chemotherapy approximately, chronic systolic CHF, pancytopenia secondary to chemotherapy, chronic kidney disease stage II, GERD, sarcoidosis, history of bowel resection following bowel rupture. Patient reports pain is worse when she lies flat and improved with sitting forward. She was noted to have elevated CRP and sed rate. Patient was evaluated by cardiology who recommends ibuprofen 400 mg every 8 hours for 5 days for pleuritic chest pain. She can continue home prednisone regimen. Patient currently denies chest pain. CTA of chest during admission showed no pulmonary embolism, no pericarditis. Echocardiogram showed an EF of 45-50% which is slightly improved from previous echo. No evidence of pericardial effusion. Indeterminate troponin suspected secondary to inflammatory response. Patient recently reduced her prednisone to every other day instead of daily. If patient continues to have pain following NSAID treatment, recommend steroid burst/taper. Patient follows with TESSA Mares. She will follow-up with primary care physician in 1 week and cardiology and oncology as previously scheduled. Patient seen and examined prior to discharge. Heart rate regular in rate and rhythm, no murmurs. Lungs clear. Abdomen soft, nontender. Neuro grossly intact. Vitals stable. Patient is stable for discharge home with the recommendations as noted above. This patient was seen by ALISON Boudreaux under the supervision of Dr. Latif. Discharge Diet: 2000 mg Sodium Diet Discharge Activity: Return to Normal Activity Call your doctor if you observe: Shortness of breath, Dizziness, Fainting spells, Chest pain, Increased palpitations (irregular heartbeat) Home Medications: Medications to take at Discharge Albuterol IH (ProAir) [Proair Hfa] 2 puff INHALATION Q4H PRN PRN 07/22/17 Cyanocobalamin (Vitamin B-12) [Vitamin B12] 2,500 mcg PO BID 07/22/17 Acetaminophen [Tylenol Tablet] 650 mg PO Q4H PRN PRN 09/19/17 Acyclovir [Zovirax] 400 mg PO BID 09/19/17 Lorazepam [Ativan] 0.5 mg PO Q6H PRN 09/19/17 Melatonin 9 mg PO QHS 09/19/17 Metoprolol Tartrate [Lopressor (beta sammie)] 25 mg PO DAILY 09/19/17 Pantoprazole Sodium [Protonix] 40 mg PO DAILY 09/19/17 Potassium Chloride [K-Dur] 40 meq PO DAILY 09/19/17 Prednisone 10 mg PO DAILY 09/19/17 SimETHICONE [Mylicon] 80 mg PO 4X/DAY PRN PRN 09/19/17 DiphenhydrAMINE [Benadryl] 25 mg PO Q6H PRN PRN 10/24/17 Guaifenesin [Mucus Relief] 600 mg PO BID 10/24/17 Ibuprofen [Motrin] 400 mg PO Q8H #15 tab 01/06/18 Vancomycin 01/06/18 Following Prescrptions Were Given to Patient: Ibuprofen [Motrin] 400 mg PO Q8H #15 tab Primary Care Physician: Juanita Zapata MD [Primary Care Provider] - Please follow up with your Primary Care Physician in: 1 Week Please Follow Up With: Yuan Ramirez MD When: As scheduled Please Follow Up With: Shon Felix DO When: As scheduled Disposition: Home Minutes spent on discharge:: 35 Patient Condition:: Stable Medical Necessity - Tobacco Use Smoking Status: Never smoker Meaningful Use Info Meaningful Use Diagnoses (Choose all that apply): None applicable <Troy Latif - Last Filed: 01/06/18 14:58> Discharge Date and Diagnosis - Secondary Discharge Diagnosis Chronic Problems Chronic systolic heart failure (Chronic) Pancytopenia (Chronic) Hypercalcemia (Chronic) CKD (chronic kidney disease), stage II (Chronic) Obesity (BMI 30.0-34.9) (Chronic) GERD (gastroesophageal reflux disease) (Chronic) Hospital Course and Treatment Imaging Results: 01/06/18 05:55 Echo Complete [ECHO] AM (NON MEDS) Summary of Care Provided: The patient is a 27 year old F with past medical history significant for non-Hodgkin's lymphoma presented with chest pain. On assessment of acute pericarditis was made treated with NSAIDs with significant improvement. Consultation was also placed to Dr. Ca with cardiology Hospital course as elicited above by Valeria ROSAS Patient was seen and examined on the day of her discharge and discharge instructions and healed with Valeria ROSAS Time spent on discharge 35 minutes Code Visit OBSV E&M: 14834 Observation care discharge
--- NOTE | 2018-01-06 10:46 | DS.PCM_ITS ---
<Valeria Pozo - Last Filed: 01/06/18 10:48> Discharge Date and Diagnosis Date of Admission: 01/06/18 Date of Discharge: 01/06/18 - Primary Discharge Diagnosis Active and Suspected Problems 1. Pleuritic chest pain 2. Indeterminate troponin - Secondary Discharge Diagnosis Chronic Problems Chronic systolic heart failure (Chronic) Pancytopenia (Chronic) Hypercalcemia (Chronic) CKD (chronic kidney disease), stage II (Chronic) Obesity (BMI 30.0-34.9) (Chronic) GERD (gastroesophageal reflux disease) (Chronic) Hospital Course and Treatment Imaging Results: Diagnostic Data Chest X-Ray 01/06/18 01:30 IMPRESSION: Normal x-ray examination of the chest. Electronically Signed: Michael Urrutia MD at 2:37 EDT , Service support , Chest CTA 01/06/18 02:11 IMPRESSION: There is no demonstrated pulmonary embolism. Normal thoracic aorta and visualized great vessels. There is no demonstrated aortic dissection. Normal heart and pericardium. The lungs are well expanded. Normal pulmonary parenchyma. Normal pleura. Electronically Signed: Michael Urrutia MD at 3:29 EDT , Service support , Dr. Ca- Cardiology Operations: None Procedures: 2-D Echocardiogram Summary of Care Provided: The patient is a 27 year old F admitted 01/05/18 due to chest pain. She has a past medical history of non-Hodgkin's lymphoma recently completing 6 cycle of chemotherapy approximately, chronic systolic CHF, pancytopenia secondary to chemotherapy, chronic kidney disease stage II, GERD, sarcoidosis, history of bowel resection following bowel rupture. Patient reports pain is worse when she lies flat and improved with sitting forward. She was noted to have elevated CRP and sed rate. Patient was evaluated by cardiology who recommends ibuprofen 400 mg every 8 hours for 5 days for pleuritic chest pain. She can continue home prednisone regimen. Patient currently denies chest pain. CTA of chest during admission showed no pulmonary embolism, no pericarditis. Echocardiogram showed an EF of 45-50% which is slightly improved from previous echo. No evidence of pericardial effusion. Indeterminate troponin suspected secondary to inflammatory response. Patient recently reduced her prednisone to every other day instead of daily. If patient continues to have pain following NSAID treatment, recommend steroid burst/taper. Patient follows with TESSA Mares. She will follow-up with primary care physician in 1 week and cardiology and oncology as previously scheduled. Patient seen and examined prior to discharge. Heart rate regular in rate and rhythm, no murmurs. Lungs clear. Abdomen soft, nontender. Neuro grossly intact. Vitals stable. Patient is stable for discharge home with the recommendations as noted above. This patient was seen by ALISON Boudreaux under the supervision of Dr. Latif. Discharge Diet: 2000 mg Sodium Diet Discharge Activity: Return to Normal Activity Call your doctor if you observe: Shortness of breath, Dizziness, Fainting spells , Chest pain, Increased palpitations (irregular heartbeat) Home Medications: Medications to take at Discharge Albuterol IH (ProAir) [Proair Hfa] 2 puff INHALATION Q4H PRN PRN 07/22/17 Cyanocobalamin (Vitamin B-12) [Vitamin B12] 2,500 mcg PO BID 07/22/17 Acetaminophen [Tylenol Tablet] 650 mg PO Q4H PRN PRN 09/19/17 Acyclovir [Zovirax] 400 mg PO BID 09/19/17 Lorazepam [Ativan] 0.5 mg PO Q6H PRN 09/19/17 Melatonin 9 mg PO QHS 09/19/17 Metoprolol Tartrate [Lopressor (beta sammie)] 25 mg PO DAILY 09/19/17 Pantoprazole Sodium [Protonix] 40 mg PO DAILY 09/19/17 Potassium Chloride [K-Dur] 40 meq PO DAILY 09/19/17 Prednisone 10 mg PO DAILY 09/19/17 SimETHICONE [Mylicon] 80 mg PO 4X/DAY PRN PRN 09/19/17 DiphenhydrAMINE [Benadryl] 25 mg PO Q6H PRN PRN 10/24/17 Guaifenesin [Mucus Relief] 600 mg PO BID 10/24/17 Ibuprofen [Motrin] 400 mg PO Q8H #15 tab 01/06/18 Vancomycin 01/06/18 Following Prescrptions Were Given to Patient: Ibuprofen [Motrin] 400 mg PO Q8H #15 tab Primary Care Physician: Juanita Zapata MD [Primary Care Provider] - Please follow up with your Primary Care Physician in: 1 Week Please Follow Up With: Yuan Ramirez MD When: As scheduled Please Follow Up With: Shon Felix DO When: As scheduled Disposition: Home Minutes spent on discharge:: 35 Patient Condition:: Stable Medical Necessity - Tobacco Use Smoking Status: Never smoker Meaningful Use Info Meaningful Use Diagnoses (Choose all that apply): None applicable <Troy Latif - Last Filed: 01/06/18 14:58> Discharge Date and Diagnosis - Secondary Discharge Diagnosis Chronic Problems Chronic systolic heart failure (Chronic) Pancytopenia (Chronic) Hypercalcemia (Chronic) CKD (chronic kidney disease), stage II (Chronic) Obesity (BMI 30.0-34.9) (Chronic) GERD (gastroesophageal reflux disease) (Chronic) Hospital Course and Treatment Imaging Results: 01/06/18 05:55 Echo Complete [ECHO] AM (NON MEDS) Summary of Care Provided: The patient is a 27 year old F with past medical history significant for non- Hodgkin's lymphoma presented with chest pain. On assessment of acute pericarditis was made treated with NSAIDs with significant improvement. Consultation was also placed to Dr. Ca with cardiology Hospital course as elicited above by Valeria ROSAS Patient was seen and examined on the day of her discharge and discharge instructions and healed with Valeria ROSAS Time spent on discharge 35 minutes Code Visit OBSV E&M: 37792 Observation care discharge
== END 2018-01-06 10:35 | disposition home or self-care (01) ==
LOC: ED 02:10 → PCU 04:09
PROVIDERS: Admitting Provider Internal Medicine; Emergency Provider Emergency Medicine; Family Provider Internal Medicine; PCP Internal Medicine; Visit Provider Internal Medicine
DX: R07.81 Pleurodynia (principal); I13.0 Hypertensive heart and chronic kidney disease with heart failure and stage 1 through stage 4 chronic kidney disease, or unspecified chronic kidney disease; I50.22 Chronic systolic (congestive) heart failure; N18.2 Chronic kidney disease, stage 2 (mild); D61.818 Other pancytopenia; K21.9 Gastro-esophageal reflux disease without esophagitis; E83.52 Hypercalcemia; C85.90 Non-Hodgkin lymphoma, unspecified, unspecified site; Z92.21 Personal history of antineoplastic chemotherapy; Z79.52 Long term (current) use of systemic steroids; Z79.899 Other long term (current) drug therapy
CPT/HCPCS: 36415; 71046; 71275; 80053; 80061; 83690; 83880; 84443; 84484; 85025; 85379; 85610; 85652; 86140; 93005; 93306; 96374; 96375; 99218; 99283; Q9967; A4216; G0378

== ENCOUNTER → 2018-01-09 16:47 | Outpatient (CLI) | payer OTHER, SELFPAY ==
[2018-01-09 18:07] LABS: Fibrinogen 540 mg/dl (203-444)
[2018-01-09 18:16] LABS: D-Dimer Quantitative (DVT/PE) 1.75 FEU/ug/m (0.27-0.49)
[2018-01-11 12:09] LABS: Absolute CD4 Helper 100 /uL (359-1519); Basophils (Absolute) 0.1 x10E3/uL (0.0-0.2); Eosinophils 1 % (Not Estab.); Eosinophils (Absolute) 0.1 x10E3/uL (0.0-0.4); Hematocrit 33.1 % (34.0-46.6); Hemoglobin 10.5 g/dL (11.1-15.9); Immature Granulocytes 0 % (Not Estab.); Lymphs 7 % (Not Estab.); Lymphs (Absolute) 0.3 x10E3/uL (0.7-3.1); MCH 30.6 pg (26.6-33.0); MCHC 31.7 g/dL (31.5-35.7); MCV 97 fL (79-97); Monocytes 12 % (Not Estab.); Monocytes (Absolute) 0.5 x10E3/uL (0.1-0.9); Neutrophils 79 % (Not Estab.); Neutrophils (Absolute) 3.3 x10E3/uL (1.4-7.0); Percent % CD4 Pos. Lymph. 33.4 % (30.8-58.5); Platelets 207 x10E3/uL (150-379); RBC Count 3.43 x10E6/uL (3.77-5.28); RDW 17.9 % (12.3-15.4); WBC Count 4.3 x10E3/uL (3.4-10.8)
[2018-01-11 14:22] LABS: Immature Granulocytes Absolute 0 x10E3/uL (0.0-0.1)
== END ==
PROVIDERS: Family Provider Internal Medicine; PCP Internal Medicine; Visit Provider Internal Medicine Hematology & Oncology
DX: D76.1 Hemophagocytic lymphohistiocytosis (principal); Z85.72 Personal history of non-Hodgkin lymphomas
CPT/HCPCS: 36415; 85379; 85384; 86361

== ENCOUNTER → 2018-01-16 16:03 | Outpatient (CLI) | payer OTHER, SELFPAY ==
[2018-01-16 16:28] LABS: Erythrocyte Sedimentation Rate 48 mm/hr (0-20)
[2018-01-16 16:39] LABS: ALB/GLOB Ratio 0.9 RATIO (0.9-2.4); AST(SGOT) 18 U/L (15-37); Alanine Aminotransfer ALT/SGPT 45 U/L (13-56); Albumin, Serum 3.2 g/dL (3.2-5.0); Alkaline Phosphatase 399 U/L (45-117); Anion Gap 9 (5-15); BUN 11 mg/dL (7-18); BUN/Creat Ratio 19.2 RATIO (10-20); Calcium,Total 9.3 mg/dL (8.5-10.1); Chloride 107 mmol/L (98-107); Creatinine, Serum 0.57 mg/dL (0.55-1.02); EST Glomerular Filtration Rate 136 mL/min (>60); Est Glom Filt Rate - Afr Amer 165 mL/min (>60); Ferritin 1135 ng/mL (8-252); Globulin 3.6 g/dL (2.2-4.2); Glucose 67 mg/dL (74-106); Potassium 3.4 mmol/L (3.5-5.1); Protein, Total 6.8 g/dL (6.4-8.2); Sodium Level 142 mmol/L (136-145)
[2018-01-18 09:24] LABS: Immunoglobulin A 20 mg/dL (87-352); Immunoglobulin G 286 mg/dL (700-1600); Immunoglobulin M 6 mg/dL (26-217)
== END ==
PROVIDERS: Family Provider Internal Medicine; PCP Internal Medicine; Visit Provider Internal Medicine Hematology & Oncology
DX: C83.33 Diffuse large B-cell lymphoma, intra-abdominal lymph nodes (principal); R16.2 Hepatomegaly with splenomegaly, not elsewhere classified; D76.1 Hemophagocytic lymphohistiocytosis
CPT/HCPCS: 80053; 82728; 82784; 85652

== ENCOUNTER → 2018-01-19 09:22 | Outpatient (CLI) | payer OTHER, SELFPAY | PROVIDERS: Family Provider Internal Medicine; PCP Internal Medicine; Visit Provider Internal Medicine Hematology & Oncology | DX: D89.9 Disorder involving the immune mechanism, unspecified (principal); C83.30 Diffuse large B-cell lymphoma, unspecified site | CPT/HCPCS: 94642 ==

== ENCOUNTER → 2018-02-12 07:16 | Outpatient (CLI) | payer OTHER, SELFPAY ==
--- NOTE | 2018-02-12 07:00 | PET_ITS ---
EXAMINATION: FDG PET CT INDICATIONS: A 27-year-old female with reported history of lymphoma presenting for restaging examination. COMPARISON EXAMINATION: Previous FDG PET study dated 12/25/17. INDEX LESION SIZE LUGANO SCORE SUV INTERPRETATION PERSISTENT: Upper abdomen, mid-distal gastric body, abdominal mesentery 4.6 cm (frame 130) 5 unchanged, 12/25/17 7.4 compared to 10.4, 12/25/17 Fulfills quantitative criteria for viable neoplasm, interim metabolic improvement ? quantitative partial metabolic response PERSISTENT: Abdominal-pelvic mesentery adjacent, contiguous to intestinal tract 6.8 cm largest (frame 70) 5 unchanged, 12/25/17 16.7 (max) compared to 8.3, 12/25/17 Fulfills quantitative criteria for viable neoplasm, interim metabolic progression PERSISTENT: Spleen ? splenic parenchyma 22.6 mm (frame 149) compared to 38.6 mm, 12/25/17 5 unchanged, 12/25/17 7.2 > hepatic parenchyma compared 10.0, 12/25/17 Fulfills quantitative criteria for viable neoplasm, interim metabolic improvement ? quantitative partial metabolic response PERSISTENT: Anterior subcutaneous fat 3 compared to 5, 12/25/17 2.0 (max) compared to 4.9, 12/25/17 Quantitative criteria for viable neoplasm are not fulfilled, interim metabolic improvement ? quantitative complete metabolic response PREVIOUS: All additional prior defined hypermetabolic foci Demonstrate metabolic resolution on the current examination TECHNIQUE: Following the intravenous administration of 13.21 mCi of F-18 deoxyglucose via the left antecubital fossa, multiplanar image acquisitions of the neck, chest, abdomen and pelvis to level of mid thigh, obtained at one hour post radiopharmaceutical administration contemporaneously interpreted with the current CT of the neck, chest, abdomen and pelvis to level of mid thigh, dated 02/12/18 via coregistration and previous FDG PET study dated 12/25/17 reveal: SERUM GLUCOSE LEVEL: 187 mg/dl. HEIGHT: 68 inches. WEIGHT: 145 lbs. FINDINGS: 1. Persistent increase glucose metabolism is manifest in the upper midline, left upper abdomen contiguous and/or adjacent to the visualized mid-distal gastric body, gastric antrum and abdominal mesentery generating a current calculated maximum standard uptake value of 7.4 compared to 10.4 demonstrated on the FDG PET study dated 12/25/17. The Lugano score is 5 unchanged. The maximal axial diameter of the largest metabolic abnormality on review of CT of the abdomen dated 02/12/18 is 4.6 cm (transverse). 2. Redefined increased glucose metabolism is manifest in the lower abdominal-lower pelvic mesentery contiguous and/or adjacent to visualized intestinal tract generating current calculated maximum standard uptake value of 16.7 compared to 8.3 defined on the FDG PET study dated 12/25/17. The Lugano score is 5 unchanged. The maximal axial diameter of the largest metabolic, morphologic abnormality on the current examination is approximately 6.8 cm (transverse). 3. Redemonstrated increased glucose metabolism is observed in the left upper abdomen contiguous to the cephalad aspect of the parenchyma of a normal sized spleen demonstrating a current maximal vertical dimension of 11.6 cm compared to 15.8 cm defined on the FDG PET study dated 12/25/17. The current calculated maximum standard uptake value is 7.2 greater than that defined in the hepatic parenchyma compared to 10.0 delineated on the examination dated 12/25/17. The Lugano score is 5 unchanged. The maximal axial diameter of the metabolic abnormality on review of CT of the abdomen dated 02/12/18 is 22.6 mm (transverse). 4. Several foci of increased glucose concentration remain apparent in the subcutaneous tissues generating a current calculated maximum standard uptake value of 2.0 compared to 4.9 defined on the FDG PET study dated 12/25/17. The Lugano score is 3 compared to 5 defined on the FDG PET study dated 12/25/17. Quantitative criteria for viable neoplasm are not fulfilled. 5. Normal physiologic distribution of the radiopharmaceutical is apparent in the hepatic (2.0/2.6) parenchyma, both renal units, bladder and visualized intestinal tract. There is uniform distribution of the radiopharmaceutical concentration compared on the cerebellar hemispheres and cerebral cortex. Diffuse intestinal tract activity is noted throughout all four quadrants of the abdominal-pelvic retroperitoneum, mesentery consistent with normal physiologic distribution of the radiopharmaceutical. Additional prior defined hypermetabolic foci noted on the FDG PET study dated 12/25/17 are not apparent on the current examination. The prior defined morphologic-anatomic changes noted on CT of the neck, chest, abdomen and pelvis manifest on the FDG PET CT study dated 04/16/18 are essentially unchanged on the present examination. PET/PET/CT Tumor Base -Thigh Subs IMPRESSION: 1. ABNORMAL EXAMINATION INDICATIVE OF MALIGNANT VIABLE NEOPLASM. 2. Increased glucose metabolism redefined in the upper abdomen contiguous to the mid-distal gastric body and abdominal mesentery fulfills quantitative criteria for viable neoplasm. 3. Enhanced radiopharmaceutical concentration redemonstrated in the left lower abdominal-lower pelvic mesentery contiguous and/or adjacent to intestinal tract fulfills quantitative criteria for viable neoplasm. 4. Facilitated fluorine labeled glucose uptake redefined in the cephalad aspect of the splenic parenchyma fulfills quantitative criteria for viable splenic neoplasm. (Cindi et al, J Nucl Med 44:1072, 2001). 5. Mild increased glucose concentration redefined in several locations within the subcutaneous fat does not fulfill quantitative criteria for viable neoplasm. 6. There is interim metabolic resolution of all additional prior defined hypermetabolic foci. 7. Overall, compared to the prior FDG PET study dated 12/25/17, there is a mixed response to systemic therapeutic intervention to include persistent viable neoplasm manifest in the upper abdomen contiguous to gastric body, abdominal mesentery, splenic parenchyma manifesting an interval quantitative partial metabolic response. There is interim metabolic progression of defined viable neoplastic disease within the abdominal-pelvic mesentery contiguous and/or adjacent to intestinal tract. There is an interim quantitative complete metabolic response relating to the persistently defined subcutaneous hypermetabolic foci, as well as all additional previous visualized hypermetabolic abnormalities. Electronic Signature Kayden June D.O. Electronically Signed: Kayden June DO at 22:36 EDT Tel , Service support ,
--- NOTE | 2018-02-12 07:16 | DT_ITS ---
This patient was seen during an EMR downtime February 12, 2018 - February 19, 2018. This patient may have a combination of paper and electronic documentation or all paper documentation. All documentation is viewable within the e-chart portion of [facility] for each patient visit.
== END ==
PROVIDERS: Family Provider Internal Medicine; PCP Internal Medicine; Visit Provider Internal Medicine Hematology & Oncology
DX: C82.38 Follicular lymphoma grade IIIa, lymph nodes of multiple sites (principal); D76.1 Hemophagocytic lymphohistiocytosis
CPT/HCPCS: 78815; A9552

== ENCOUNTER → 2018-02-20 14:14 | Outpatient (CLI) | payer OTHER, SELFPAY ==
[2018-02-20 14:47] LABS: ALB/GLOB Ratio 0.9 RATIO (0.9-2.4); AST(SGOT) 19 U/L (15-37); Alanine Aminotransfer ALT/SGPT 16 U/L (13-56); Albumin, Serum 3.4 g/dL (3.2-5.0); Alkaline Phosphatase 160 U/L (45-117); Anion Gap 7 (5-15); BUN 8 mg/dL (7-18); BUN/Creat Ratio 14.6 RATIO (10-20); Calcium,Total 9.4 mg/dL (8.5-10.1); Chloride 106 mmol/L (98-107); Creatinine, Serum 0.55 mg/dL (0.55-1.02); EST Glomerular Filtration Rate 142 mL/min (>60); Est Glom Filt Rate - Afr Amer 172 mL/min (>60); Ferritin 1182 ng/mL (8-252); Globulin 3.8 g/dL (2.2-4.2); Glucose 74 mg/dL (74-106); LDH 161 U/L (84-246); Potassium 3.5 mmol/L (3.5-5.1); Protein, Total 7.2 g/dL (6.4-8.2); Sodium Level 140 mmol/L (136-145)
[2018-02-20 14:51] LABS: Fibrinogen 613 mg/dl (203-444)
[2018-02-20 18:18] LABS: Erythrocyte Sedimentation Rate 30 mm/hr (0-20)
[2018-02-23 14:08] LABS: Absolute CD4 Helper 155 /uL (359-1519); Basophils (Absolute) 0 x10E3/uL (0.0-0.2); Eosinophils 1 % (Not Estab.); Eosinophils (Absolute) 0.1 x10E3/uL (0.0-0.4); Hematocrit 39.6 % (34.0-46.6); Hemoglobin 12.3 g/dL (11.1-15.9); Immature Granulocytes 0 % (Not Estab.); Lymphs 8 % (Not Estab.); Lymphs (Absolute) 0.4 x10E3/uL (0.7-3.1); MCH 31.9 pg (26.6-33.0); MCHC 31.1 g/dL (31.5-35.7); MCV 103 fL (79-97); Monocytes 4 % (Not Estab.); Monocytes (Absolute) 0.2 x10E3/uL (0.1-0.9); Neutrophils 87 % (Not Estab.); Neutrophils (Absolute) 3.8 x10E3/uL (1.4-7.0); Percent % CD4 Pos. Lymph. 38.8 % (30.8-58.5); Percent % CD8 Pos. Lymph. 55.8 % (12.0-35.5); Platelets 242 x10E3/uL (150-379); RBC Count 3.86 x10E6/uL (3.77-5.28); RDW 14.6 % (12.3-15.4); WBC Count 4.4 x10E3/uL (3.4-10.8)
[2018-02-23 18:13] LABS: Immature Granulocytes Absolute 0 x10E3/uL (0.0-0.1)
== END ==
PROVIDERS: Family Provider Internal Medicine; PCP Internal Medicine; Visit Provider Internal Medicine Hematology & Oncology
DX: C83.33 Diffuse large B-cell lymphoma, intra-abdominal lymph nodes (principal); R16.2 Hepatomegaly with splenomegaly, not elsewhere classified; D76.1 Hemophagocytic lymphohistiocytosis
CPT/HCPCS: 80053; 82728; 83615; 85384; 85652; 86360

== ENCOUNTER → 2018-02-21 09:18 | Outpatient (CLI) | payer OTHER, SELFPAY | PROVIDERS: Family Provider Internal Medicine; PCP Internal Medicine; Visit Provider Internal Medicine Hematology & Oncology | DX: D89.9 Disorder involving the immune mechanism, unspecified (principal); C83.30 Diffuse large B-cell lymphoma, unspecified site | CPT/HCPCS: 94642 ==

== ENCOUNTER → 2018-02-28 12:22 | Outpatient (CLI) | payer OTHER, SELFPAY ==
[2018-02-28 13:20] LABS: Ferritin 846 ng/mL (8-252)
== END ==
PROVIDERS: Family Provider Internal Medicine; PCP Internal Medicine
DX: C83.33 Diffuse large B-cell lymphoma, intra-abdominal lymph nodes (principal)
CPT/HCPCS: 82728

== ENCOUNTER → 2018-03-16 09:31 | Outpatient (CLI) | payer OTHER, SELFPAY ==
[2018-03-16 10:07] VITALS: RESP 16
== END ==
PROVIDERS: Family Provider Internal Medicine; PCP Internal Medicine; Visit Provider Internal Medicine Hematology & Oncology
DX: D89.9 Disorder involving the immune mechanism, unspecified (principal); C83.30 Diffuse large B-cell lymphoma, unspecified site
CPT/HCPCS: 94642

== ENCOUNTER 2018-06-23 13:34 | Emergency (ER) | payer OTHER, SELFPAY ==
[2018-06-23 13:34] VITALS: BP 114/67; PULSE 83; RESP 16; TEMP 36.8; O2SAT 99; BMI 24.3
--- NOTE | 2018-06-23 13:37 | EKG12_ITS ---
Test Reason : CP Blood Pressure : / mmHG Vent. Rate : 070 BPM Atrial Rate : 070 BPM P-R Int : 134 ms QRS Dur : 086 ms QT Int : 412 ms P-R-T Axes : 048 069 049 degrees QTc Int : 444 ms Normal sinus rhythm Normal ECG Confirmed by LEXY HARRELL MD ([id number]), mapping editor PIOTR KRAUSE ([id number]) on 06/25/2018 3:23:40 PM Referred By: MICHELLE
--- NOTE | 2018-06-23 13:37 | RAD_ITS ---
STUDY: X-RAY CHEST REASON FOR EXAM: Female, 28 years old. Chest pain TECHNIQUE: Single AP portable view of the chest. COMPARISON: January 06, 2018 FINDINGS: The lungs are clear and expanded. There is no demonstrated pleural abnormality. Normal size heart. Normal mediastinum and devon. Normal visualized pulmonary arteries. Normal visualized aortic arch and descending thoracic aorta. Normal visualized thoracic spine. Normal visualized ribs, clavicles, and shoulders. There is no demonstrated abnormality of the visualized soft tissue structures of the upper abdomen. RAD/Chest 1 View (Portable) IMPRESSION: Normal x-ray examination of the chest. Electronically Signed: Nader Russell MD at 15:00 EDT , Service support ,
[2018-06-23 14:45] VITALS: O2SAT 97
[2018-06-23 14:53] LABS: Absolute Lymphocyte Count 0.34 X10^3/ul (0.83-4.51); Absolute Neutrophil Count 7.1 X10^3/uL (2.0-7.7); Basophil# 0.02 X10^3/uL; Basophil% 0.2 % (0-1); Eosinophils% 1.2 % (0-5); Hematocrit 40.6 % (37-47); Hemoglobin 14.4 g/dl (12.0-15.0); Lymphocyte # 0.34 X10^3/ul (4.0); Lymphocyte % 4.2 % (19-41); Mean Corp Hgb Conc 35.5 g/gl (32-36); Mean Corpuscular Hgb 34.6 pg (27.0-32.0); Mean Corpuscular Volume 97.6 fL (81-99); Mean Platelet Vol. 9.9 fl (6.2-12.0); Monocyte# 0.48 X10^3/uL; Neutrophil # 7.05 X10^3/uL (2.7-7.7); Neutrophil % 87.9 % (47-70); Platelet Count 137 K/mm3 (150-450); RBC Distribution Width CV 12.5 % (11.6-14.6); Red Blood Count 4.16 M/mm3 (4.2-5.4)
[2018-06-23 14:54] LABS: Differential Indicated SCAN CRITERIA MET; POSITIVE COUNT NO; POSITIVE DIFFERENTIAL YES; POSITIVE MORPHOLOGY NO
--- NOTE | 2018-06-23 15:04 | US_ITS ---
STUDY: ABDOMINAL ULTRASOUND - RIGHT UPPER QUADRANT REASON FOR VISIT: Female, 28 years old. Pain TECHNIQUE: Ultrasound evaluation of the right upper quadrant was performed with real-time and static winslow-scale imaging. TECHNICAL QUALITY: Adequate. COMPARISON: PET/CT dated February 12, 2018 FINDINGS: Liver: The liver measures 15.3 cm. There is normal echogenicity of the liver. The bile ducts are within normal limits. There is hepatic color flow. The direction of portal flow is hepatopetal. There is no demonstrated mass lesion. Gallbladder: Normal distended gallbladder. The gallbladder wall measures 2.0 mm. There is a negative sonographic Alexis's sign. There is pericholecystic fluid. There are gallstones within the gallbladder. There is an echogenic rounded 11 x 10 mm nonmobile rounded focus within the gallbladder fundus with no associated Doppler flow. Common Bile Duct (C.B.D.): The common bile duct measures 3.1 mm. Pancreas: Normal size of the head, body and tail of the pancreas. There is normal echogenicity of the pancreas. There is no demonstrated pancreatic mass or cyst. Right Kidney: Normal size of the right kidney. The right kidney measures 11.0 cm in length. Normal renal cortex There is no demonstrated renal mass or cyst. There is no right hydronephrosis. US/Gallbladder IMPRESSION: Cholelithiasis. Pericholecystic fluid, this may be reactive given there is no associated gallbladder wall thickening nor sonographic Alexis's sign. 11 x 10 mm hypoechoic nonmobile and nonshadowing focus within the gallbladder fundus which may be secondary to a polyp or a nonshadowing gallstone. Electronically Signed: Liza Monsivais MD at 16:11 EDT Tel , Service support ,
[2018-06-23 15:06] LABS: Anion Gap 7 (5-15); BUN 12 mg/dL (7-18); BUN/Creat Ratio 16.6 RATIO (10-20); Chloride 108 mmol/L (98-107); Creatinine, Serum 0.72 mg/dL (0.55-1.02); EST Glomerular Filtration Rate 103 mL/min (>60); Est Glom Filt Rate - Afr Amer 125 mL/min (>60); Estimated Creatinine Clearance 119.44 ml/min; Glucose 92 mg/dL (74-106); Potassium 3.8 mmol/L (3.5-5.1); Sodium Level 140 mmol/L (136-145)
--- NOTE | 2018-06-23 15:07 | ED.DCSUM_ITS ---
- ER Visit Summary Date of Service: 06/23/18 Chief Complaint: Epigastric abdominal pain History of Present Illness: The patient is a 28 F with history of stage IV non- Hodgkin's lymphoma, in remission for 5 weeks, who presents for 12 hours of severe epigastric pain. Patient states she has a history of gallbladder attacks and that this is consistent with her prior symptoms. They usually only last 1 hour, and this 1 is lasted several hours. She will have several days in between attacks usually they occur after eating, but this 1 occurred while patient was sleeping. She has vomited. No fever, diarrhea, urinary symptoms, shortness of breath. Patient has history of the non-Hodgkin's lymphoma, needs her spleen does not work correctly and a history of bowel resection secondary to the lymphoma. Denies any alcohol use. She has an appointment in 3 days with her surgeon to discuss elective removal of her gallbladder. Physical Examination: Vital signs: afebrile, hemodynamically stable, no hypoxia on room air General: well nourished, well developed, in no distress Skin: warm, dry, no rash, no pallor HEENT: normocephalic and atraumatic; PERRL, EOMI, moist mucous membranes Cardiovascular: regular rate and rhythm without murmurs, no peripheral edema, 2+ pulses all distal extremities Respiratory: No increased work of breathing, lungs are clear to auscultation bilaterally, no rales, rhonchi or wheezing Abdominal: Abdomen is soft, right upper quadrant tenderness, epigastric tenderness with normoactive bowel sounds, no guarding or rebound, no masses MSK: Moves all extremities, no deformities, normal strength Neuro: Awake and alert, oriented ?4. No facial droop, sensation and motor function intact and symmetric Test Results: Abnormal Lab Results 06/23/18 06/23/18 06/23/18 14:42 14:42 14:42 WBC 8.0 RBC 4.16 L Hgb 14.4 Hct 40.6 MCV 97.6 MCH 34.6 H MCHC 35.5 RDW 12.5 RDW Differential 44.0 H Plt Count 137 L MPV 9.9 Immature Gran % (Auto) 0.500 Neut % (Auto) 87.9 H Lymph % (Auto) 4.2 L [place] % (Auto) 6.0 Eos % (Auto) 1.2 Baso % (Auto) 0.2 Absolute Neuts (auto) 7.1 Absolute Lymphs (auto) 0.34 L Total Counted Not Reportable Differential Comment SEE COMMENT Platelet Estimate SLT DEC Anisocytosis RARE Macrocytosis RARE PT 13.0 INR 1.0 Sodium 140 Potassium 3.8 Chloride 108 H Carbon Dioxide 25.0 Anion Gap 7 BUN 12 Creatinine 0.72 Estim Creat Clear Calc 119.44 Est GFR (MDRD) Af Amer 125 Est GFR (MDRD) Non-Af 103 BUN/Creatinine Ratio 16.6 Glucose 92 Calcium 9.0 Total Bilirubin Direct Bilirubin AST ALT Alkaline Phosphatase Troponin I 0.022 Total Protein Albumin Globulin Lipase 06/23/18 14:42 WBC RBC Hgb Hct MCV MCH MCHC RDW RDW Differential Plt Count MPV Immature Gran % (Auto) Neut % (Auto) Lymph % (Auto) [place] % (Auto) Eos % (Auto) Baso % (Auto) Absolute Neuts (auto) Absolute Lymphs (auto) Total Counted Differential Comment Platelet Estimate Anisocytosis Macrocytosis PT INR Sodium Potassium Chloride Carbon Dioxide Anion Gap BUN Creatinine Estim Creat Clear Calc Est GFR (MDRD) Af Amer Est GFR (MDRD) Non-Af BUN/Creatinine Ratio Glucose Calcium Total Bilirubin 0.50 Direct Bilirubin 0.19 AST 19 ALT 27 Alkaline Phosphatase 150 H Troponin I Total Protein 7.2 Albumin 4.0 Globulin 3.2 Lipase 52 L Clinical Impression(s) from Imaging Studies Chest X-Ray 06/23/18 13:37 IMPRESSION: Normal x-ray examination of the chest. Electronically Signed: Nader Russell MD at 15:00 EDT , Service support , Gallbladder Ultrasound 06/23/18 15:04 IMPRESSION: Cholelithiasis. Pericholecystic fluid, this may be reactive given there is no associated gallbladder wall thickening nor sonographic Alexis's sign. 11 x 10 mm hypoechoic nonmobile and nonshadowing focus within the gallbladder fundus which may be secondary to a polyp or a nonshadowing gallstone. Electronically Signed: Liza Monsivais MD at 16:11 EDT Tel , Service support , Medications Given Discontinued Medications Sodium Chloride () 1,000 mls @ 1,000 mls/hr IV .Q1H ONE Stop: 06/23/18 16:00 Last Admin: 06/23/18 15:45 Dose: 1,000 mls/hr Metoclopramide HCl (Reglan) 10 mg IV X1 ONE Stop: 06/23/18 17:30 Morphine Sulfate () 4 mg IV X1 ONE Stop: 06/23/18 15:02 Last Admin: 06/23/18 15:41 Dose: 4 mg Morphine Sulfate () 4 mg IV X1 ONE Stop: 06/23/18 17:29 Ondansetron HCl (Zofran) 4 mg IV X1 ONE Stop: 06/23/18 15:02 Last Admin: 06/23/18 15:41 Dose: 4 mg Emergency Department Course and Treatment: Patient presents with epigastric and right upper quadrant pain that is for her intermittent gallbladder attacks, except today she has had pain for over 12 hours rather than a typical 1 hour episode. Patient does have noted right upper quadrant tenderness on exam. She was given morphine and Zofran for symptomatic relief. Because of the epigastric tenderness, EKG been performed in triage. It showed a sinus rhythm without ischemia or ectopy. Troponin was within normal limits. He had no leukocytosis. No renal or electrolyte derangements. Hepatic function normal. Lipase within normal limits. Patient was not able to give a urine sample. Ultrasound was performed of the right upper quadrant that showed gallstones and pericholecystic fluid, but no thickening of the gallbladder wall or bile duct dilatation that would be consistent with acute cholecystitis. Review of prior CT scans showed pericholecystic edema, which may be related to the cholecystic fluid noted on today's exam. Ultrasound was reviewed by Dr. Adamson, who agreed that it was not consistent with acute cholecystitis and is likely related to underlying chronic conditions. She had improvement in her pain with the morphine but had return of pain after period of time. Was given an additional dose as well as Reglan for further nausea. She has an appointment in 3 days with her surgeon, and she was very agreeable with the plan to control her symptoms until she can follow-up with her surgeon as prior scheduled. Patient was given a prescription for [place] for pain. She already has multiple antiemetics at home related to her prior procedures and cancer. She was discharged home in improved condition. Treatment Plan: [] Disposition: [] Impression: History biliary colic, right upper quadrant and epigastric pain, history of non-Hodgkin's lymphoma This note was generated with Mob[employer] dictation software. It may contain incorrect words, spelling, and punctuation that were not noted in review of the chart prior to signing ED Disposition - Plan for ED Patient: Disposition: Home or Assisted Living Chief Complaint: Chest Pain Instructions: ED Abdominal Pain Gallstone Poss Prescriptions: Hydrocodone Bitart/Apap 5-325 [[place] 5MG-325MG] 1 tab PO Q6H PRN PRN 5 Days #15 tab PRN Reason: Pain Referrals: Juanita Zapata MD [Primary Care Provider] - As Needed Doctor,Your [STAFF PHYSICIAN] - Keep Abdi appointment Additional Instructions: Keep your scheduled appointment on Monday with your surgeon to discuss having your gallbladder taken out. Use your home medications for nausea as needed and use the pain medication as needed for severe pain. If you have any worsening of your condition or any new concerning symptoms, please return immediately to the emergency department for another evaluation.
[2018-06-23] MEDS: Ondansetron 4 MG/2 ML Vial IV (15:41)
[2018-06-23] MEDS: Morphine 4 MG/ML Syringe IV ×2 (15:41→17:39)
[2018-06-23] MEDS: 0.9% Normal Saline 1,000 ML 1000 ML IV (15:45)
[2018-06-23 15:47] LABS: AST(SGOT) 19 U/L (15-37); Alanine Aminotransfer ALT/SGPT 27 U/L (13-56); Alkaline Phosphatase 150 U/L (45-117); Bilirubin, Direct 0.19 mg/dL (0.00-0.30); Globulin 3.2 g/dL (2.2-4.2); Lipase 52 U/L (73-393); Protein, Total 7.2 g/dL (6.4-8.2)
[2018-06-23 15:48] LABS: Anisocytosis RARE; Macrocytosis RARE; Platelet Estimate SLT DEC (ADEQ)
[2018-06-23 16:53] VITALS: PULSE 78; RESP 18
--- NOTE | 2018-06-23 17:27 | DCINST.ED_ITS ---
ED Disposition - Plan for ED Patient: Disposition: Home or Assisted Living Chief Complaint: Chest Pain Instructions: ED Abdominal Pain Gallstone Poss Prescriptions: Hydrocodone Bitart/Apap 5-325 [[place] 5MG-325MG] 1 tab PO Q6H PRN PRN 5 Days #15 tab PRN Reason: Pain Referrals: Juanita Zapata MD [Primary Care Provider] - As Needed Doctor,Your [STAFF PHYSICIAN] - Keep Abdi appointment Additional Instructions: Keep your scheduled appointment on Monday with your surgeon to discuss having your gallbladder taken out. Use your home medications for nausea as needed and use the pain medication as needed for severe pain. If you have any worsening of your condition or any new concerning symptoms, please return immediately to the emergency department for another evaluation.
[2018-06-23] MEDS: Metoclopramide 10 MG/2 ML Vial IV (17:39)
[2018-06-23 17:48] VITALS: PULSE 85; RESP 18
== END 2018-06-23 17:48 | disposition home or self-care (01) ==
PROVIDERS: Emergency Provider Emergency Medicine; Family Provider Internal Medicine; PCP Internal Medicine
DX: R10.13 Epigastric pain (principal); R10.11 Right upper quadrant pain; K80.20 Calculus of gallbladder without cholecystitis without obstruction; Z87.19 Personal history of other diseases of the digestive system; Z85.72 Personal history of non-Hodgkin lymphomas; Z79.899 Other long term (current) drug therapy
CPT/HCPCS: 71045; 76705; 80048; 80076; 83690; 84484; 85025; 85610; 93005; 96361; 96374; 96375; 96376; 99284; J7030; A4216; J2405

== ENCOUNTER → 2018-07-31 11:14 | Outpatient (CLI) | payer OTHER, SELFPAY ==
[2018-07-31 11:49] LABS: Absolute Neutrophil Count 3.5 X10^3/uL (2.0-7.7); Basophil# 0.02 X10^3/uL; Basophil% 0.4 % (0-1); Differential Indicated SCAN CRITERIA MET; Eosinophil# 0.18 X10^3/uL; Eosinophils% 3.9 % (0-5); Hematocrit 38.8 % (37-47); Hemoglobin 12.7 g/dl (12.0-15.0); Lymphocyte % 10.9 % (19-41); Mean Corp Hgb Conc 32.7 g/gl (32-36); Mean Corpuscular Hgb 33.2 pg (27.0-32.0); Mean Corpuscular Volume 101.6 fL (81-99); Mean Platelet Vol. 10.7 fl (6.2-12.0); Monocyte# 0.37 X10^3/uL; Monocyte% 8.1 % (0-10); Neutrophil # 3.48 X10^3/uL (2.7-7.7); Neutrophil % 75.8 % (47-70); POSITIVE COUNT NO; POSITIVE DIFFERENTIAL YES; POSITIVE MORPHOLOGY NO; Platelet Count 160 K/mm3 (150-450); RBC Distribution Width CV 12.8 % (11.6-14.6); RBC Distribution Width SD 46.6 fl (35.1-43.9); Red Blood Count 3.82 M/mm3 (4.2-5.4); White Blood Count 4.6 K/mm3 (4.4-11.0)
== END ==
PROVIDERS: PCP Internal Medicine; Visit Provider Internal Medicine Hematology & Oncology
DX: C83.38 Diffuse large B-cell lymphoma, lymph nodes of multiple sites (principal)
CPT/HCPCS: 85025

== ENCOUNTER → 2019-07-04 07:06 | Outpatient (CLI) | payer OTHER, SELFPAY ==
[2019-06-11 15:14] VITALS: BMI 32.5
--- NOTE | 2019-07-04 07:14 | MRI_ITS ---
STUDY: MR PELVIS WITH T WITHOUT CONTRAST REASON FOR EXAM: Female, 29 years old. Ascites TECHNIQUE: Standardized fat and water weighted pulse sequences were obtained in all 3 orthogonal planes, pre-and post contrast administration. IV Dotarem 19 was administered for the contrast portion of the examination. COMPARISON: None. FINDINGS: Normal urinary bladder. Normal visualized small intestine. Normal visualized colon. Moderate amount of ascites. There is no pelvic mass lesion or lymphadenopathy. Normal visualized pelvic arteries. Normal osseous structures. Normal abdominal wall. MRI/Pelvis W/WO Contrast IMPRESSION: Moderate amount of ascites. Electronically Signed: Kayden Miranda MD at 14:54 EST Tel , Service support ,
--- NOTE | 2019-07-04 13:37 | ECHOD_ITS ---
Reason For Study: CMP, HX OF CHEMO Procedure This was a 2D Doppler, Color Flow transthoracic echocardiogram. Myocardial strain analysis was performed in this exam to aid in the assessment of cardiac function. Exam performed in department. Left Ventricle Normal size and thickness. The estimated ejection fraction is 60 %. Normal diastology for age. No regional wall motion abnormalities noted. Right Ventricle Normal size and thickness. Normal systolic function. Atria Normal left atrium. Normal right atrium. Normal atrial septum. Mitral Valve The mitral valve is structurally normal. No prolapse or stenosis seen. Tricuspid Valve Normal tricuspid valve. Trivial tricuspid valve insufficiency. Right ventricular systolic pressure estimated to be 35 mmHg. Aortic Valve Normal aortic valve. Trisinus/trileaflet aortic valve. Pulmonic Valve Normal pulmonic valve. Great Vessels Normal aortic root. Normal arch. Normal inferior vena cava. Inferior vena cava collapse with sniff. Pericardium/Pleural No pericardial effusion. MMode/2D Measurements & Calculations LVIDd: 4.7 cm IVSd: 0.83 cm Ao root diam: 2.8 cm LVIDs: 3.1 cm LVPWd: 0.79 cm RVDd: 3.4 cm FS: 33.5 % LAV(MOD-bp): 41.2 ml LA A4 area: 14.3 cm2 LA dimension(2D): 3.2 cm LAV(MOD-bp) Indexed: 19.7 ml/m2 LAV(MOD-sp2): 38.6 ml LAV(MOD-sp4): 38.3 ml RA A4 area: 13.2 cm2 Time Measurements MV dec time: 0.17 sec Doppler Measurements & Calculations MV E max francis: 102.6 cm/sec Lat Peak E' Francis: 12.6 cm/sec Med Peak E' Francis: 10.7 cm/sec MV A max francis: 74.5 cm/sec E/E' lat: 8.2 E/E' med: 9.6 MV E/A: 1.4 Ao V2 max: 115.6 cm/sec LV V1 max: 103.4 cm/sec PA V2 max: 115.8 cm/sec Ao max P.4 mmHg LV V1 max P.3 mmHg TR max francis: 271.6 cm/sec TR max P.5 mmHg Interpretation Summary The estimated ejection fraction is 60 %. Normal diastology for age. Trivial tricuspid valve insufficiency. Right ventricular systolic pressure estimated to be 35 mmHg. Compared to echo report dated 01/04/2018, LV function has improved from 50% to 60%. Ordering Physician: Tio Ca Referring Physician: Leslie Heart Performed By: Jaclyn Bhakta RDCS, RVT
== END ==
PROVIDERS: Family Provider Internal Medicine; PCP Internal Medicine; Referring Provider Obstetrics & Gynecology; Visit Provider Obstetrics & Gynecology
DX: R18.8 Other ascites (principal); R19.00 Intra-abdominal and pelvic swelling, mass and lump, unspecified site; I42.8 Other cardiomyopathies; I51.9 Heart disease, unspecified; Z92.21 Personal history of antineoplastic chemotherapy
CPT/HCPCS: 72197; 93306; A9575

== ENCOUNTER → 2019-07-26 12:24 | Outpatient (CLI) | payer OTHER, SELFPAY ==
[2019-06-11 15:14] VITALS: BMI 32.5
--- NOTE | 2019-07-26 12:41 | US_ITS ---
STUDY: ABDOMINAL ULTRASOUND -4 quadrants for assessment of ascites. REASON FOR VISIT: Female, 29 years old TECHNIQUE: Ultrasound evaluation of the 4 quadrants was performed with real-time and static winslow-scale imaging. TECHNICAL QUALITY: Adequate. COMPARISON: None. FINDINGS: No evidence of free fluid. US/Abdomen Limited IMPRESSION: No evidence of free fluid. Electronically Signed: Will Jimenes, at 14:15 EST , Service support ,
[2019-07-26 12:52] LABS: Absolute Lymphocyte Count 1.26 X10^3/uL (0.83-4.51); Absolute Neutrophil Count 4.3 X10^3/uL (2.0-7.7); Basophil# 0.04 X10^3/uL; Basophil% 0.6 % (0-1); Eosinophil# 0.07 X10^3/uL; Eosinophils% 1.1 % (0-5); Hematocrit 42.2 % (37-47); Hemoglobin 14.3 g/dL (12.0-15.0); Lymphocyte # 1.26 X10^3/ul (4.0); Lymphocyte % 20.4 % (19-41); Mean Corp Hgb Conc 33.9 g/dL (32-36); Mean Corpuscular Hgb 32.4 pg (27.0-32.0); Mean Corpuscular Volume 95.7 fL (81-99); Mean Platelet Vol. 10.9 fl (6.2-12.0); Monocyte# 0.44 X10^3/uL; Monocyte% 7.1 % (0-10); NRBC Flagged by Analyzer 0 % (0-5); Neutrophil # 4.34 X10^3/uL (2.7-7.7); Neutrophil % 70.5 % (47-70); Platelet Count 172 K/mm3 (150-450); RBC Distribution Width CV 12.2 % (11.6-14.6); RBC Distribution Width SD 42.5 fl (35.1-43.9); Red Blood Count 4.41 M/mm3 (4.2-5.4); White Blood Count 6.2 K/mm3 (4.4-11.0)
[2019-07-26 13:01] LABS: Prothrombin Time (Protime)PT. 13.2 SECONDS (11.7-14.9)
[2019-07-26 13:02] LABS: Partial Thromboplast Time 33.9 Seconds (24.1-36.2)
[2019-07-26 13:10] LABS: ALB/GLOB Ratio 1.5 RATIO (0.9-2.4); AST(SGOT) 14 U/L (15-37); Alanine Aminotransfer ALT/SGPT 22 U/L (13-56); Albumin, Serum 4.2 g/dL (3.2-5.0); Alkaline Phosphatase 83 U/L (45-117); Anion Gap 8 (5-15); BUN 8 mg/dL (7-18); BUN/Creat Ratio 11.6 RATIO (10-20); Chloride 107 mmol/L (98-107); Creatinine, Serum 0.69 mg/dL (0.55-1.02); EST Glomerular Filtration Rate 109 mL/min (>60); Est Glom Filt Rate - Afr Amer 131 mL/min (>60); Globulin 2.8 g/dL (2.2-4.2); Glucose 86 mg/dL (74-106); LDH 142 U/L (84-246); Potassium 3.7 mmol/L (3.5-5.1); Sodium Level 140 mmol/L (136-145)
[2019-07-26 13:38] VITALS: BP 109/53; PULSE 71; RESP 18; O2SAT 10
[2019-07-29 13:48] LABS: AFP, Tumor Marker 8.3 ng/mL (0.0-8.3)
== END ==
PROVIDERS: Family Provider Internal Medicine; PCP Internal Medicine; Referring Provider Internal Medicine Hematology & Oncology; Visit Provider Internal Medicine Hematology & Oncology
DX: C85.90 Non-Hodgkin lymphoma, unspecified, unspecified site (principal); D80.1 Nonfamilial hypogammaglobulinemia; D61.818 Other pancytopenia; R18.8 Other ascites
CPT/HCPCS: 36415; 76705; 80053; 82105; 83615; 85025; 85610; 85730

== ENCOUNTER → 2019-09-05 17:31 | Outpatient (CLI) | payer OTHER, SELFPAY ==
[2019-06-11 15:14] VITALS: BMI 32.5
[2019-08-01 13:58] VITALS: BMI 31.7
--- NOTE | 2019-09-05 17:31 | CT_ITS ---
STUDY: CT CHEST WITH CONTRAST REASON FOR EXAM: Female, 29 years old. Lymphoma 2 yr ago. This is f/u scan. Prior cholecystectomy and bowel resection d/t rupture RADIATION DOSAGE (If Supplied By Facility): CTDIvol = ( 14.55 ) mGy, DLP = ( 1479.88 ) mGycm TECHNIQUE: Transaxial imaging was performed following intravenous administration of IV 100mL Isovue-300. Multiplanar coronal and sagittal images were reformatted. Individualized dose optimization techniques were used for this CT. COMPARISON: PET scan 02/12/2018, chest CT 02/11/2019 FINDINGS: The lungs are normal. There is no demonstrated pleural abnormality. Normal heart and pericardium. Normal mediastinum. Normal hilar regions. Normal enhanced pulmonary arteries. Normal aorta arch and descending thoracic aorta. Normal osseous structures. Upper abdomen described on abdomen/pelvis CT report. CT/Chest WITH Contrast IMPRESSION: 1. No pulmonary nodule or intrathoracic adenopathy. Electronically Signed: Senthil Bocanegra MD ([place]) at 15:04 EST , Service support ,
--- NOTE | 2019-09-05 17:31 | CT_ITS ---
STUDY: CT ABDOMEN AND PELVIS WITH CONTRAST REASON FOR EXAM: Female, 29 years old. Lymphoma. RADIATION DOSAGE (If Supplied By Facility): CTDIvol = ( 14.55 ) mGy, DLP = ( 1479.88 ) mGycm TECHNIQUE: Transaxial images were obtained from the dome of the diaphragm to the symphysis pubis without oral contrast. Isovue 300 100ml was administered. Sagittal and coronal images were reconstructed. Individualized dose optimization techniques were used for this CT. COMPARISON: February 11, 2019. FINDINGS: The visualized lung bases are unremarkable. The visualized portions of the heart are within normal limits. Normal liver. Nonvisualization of the gallbladder. No significant dilatation of the extrahepatic biliary system. Normal spleen. Normal pancreas. Normal bilateral adrenal glands. Normal right kidney. Normal left kidney. Normal visualized stomach. Prior surgery at the duodenum with focal dilatation. Normal colon. The appendix is visualized and appears normal. Normal abdominal aorta. Normal inferior vena cava. Normal retroperitoneum. Normal urinary bladder. Endometrial thickening in the uterus. Normal abdominal wall. Normal osseous structures. CT/Abdomen/Pelvis W IV Cont ONLY IMPRESSION: Mild endometrial thickening. Prior surgery at the duodenum with focal dilatation. Electronically Signed: Vidal Waters DO at 20:47 EST Tel [phone], Service support ,
[2019-09-05 17:46] LABS: EGFR FINGERSTICK > 60.0000 mL/min (>60)
== END ==
PROVIDERS: Family Provider Internal Medicine; PCP Internal Medicine; Referring Provider Internal Medicine Hematology & Oncology; Visit Provider Internal Medicine Hematology & Oncology
DX: C85.90 Non-Hodgkin lymphoma, unspecified, unspecified site (principal); D80.1 Nonfamilial hypogammaglobulinemia
CPT/HCPCS: 71260; 74177; Q9967

== ENCOUNTER → 2020-03-17 08:21 | Outpatient (CLI) | payer OTHER, SELFPAY ==
[2019-12-24 10:36] VITALS: BMI 31.1
--- NOTE | 2020-03-17 08:21 | CT_ITS ---
STUDY: CT SOFT TISSUE NECK WITH CONTRAST REASON FOR EXAM: Female, 29 years old. NON HODGKIN''S LYMPHOMA 2017. CHEMO- LAST ONE 2018 RADIATION DOSAGE (If Supplied By Facility): CTDIvol = ( 9.22 ) mGy, DLP = ( 1748.78 ) mGycm TECHNIQUE: The patient was scanned in a multi-detector CT scanner. High resolution transaxial imaging was performed following intravenous administration of IV 100ML ISOVUE 300. Sagittal and coronal images were reconstructed. Individualized dose optimization techniques were used for this CT. COMPARISON: None. FINDINGS: Normal bilateral parotid glands. 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 Normal bilateral parapharyngeal spaces. Normal bilateral carotid spaces. Normal bilateral sublingual and submandibular glands and spaces. Normal visualized nasopharynx. Normal retropharyngeal space. Normal perivertebral space. Normal visualized bilateral faucial tonsils. The visualized tongue, tongue base and oropharynx are normal. The visualized cervical lymph nodes (levels I-) are within normal size limits, and maintain normal morphology. There is no demonstrated solid or cystic mass lesion. There is no abnormal contrast enhancement. Normal epiglottis, bilateral vallecula and hypopharynx. The pre-epiglottic and paraglottic adipose spaces are normal. Normal visualized bilateral piriform sinuses, aryepiglottic folds, vocal cords, and arytenoid-cricoid articulations. Normal subglottic trachea. Normal bilateral lobes of the thyroid gland. Normal visualized pulmonary apices. Normal visualized paranasal sinuses. Normal visualized cervical spine. CT/Soft Tissue Neck WITH Contrast IMPRESSION: Normal enhanced CT examination of the soft tissues of the neck. Electronically Signed: Will Jimenes, at 12:42 EDT , Service support ,
--- NOTE | 2020-03-17 08:21 | CT_ITS ---
STUDY: CT ABDOMEN AND PELVIS WITH CONTRAST REASON FOR EXAM: Female, 29 years old. NON HODKINSON LYMPHOMA 2017 LAST CHEMO 2018 RADIATION DOSAGE (If Supplied By Facility): CTDIvol = ( 9.22 ) mGy, DLP = ( 1748.78 ) mGycm TECHNIQUE: Transaxial images were obtained from the dome of the diaphragm to the symphysis pubis with oral contrast. IV 100ML ISOVUE 300 was administered. Sagittal and coronal images were reconstructed. Individualized dose optimization techniques were used for this CT. COMPARISON: Comparison is made with prior examination dated September 05, 2019. FINDINGS: Stable minimal basilar linear markings at the left lung base suggestive of scarring. The visualized portions of the heart are within normal limits. Normal liver. The patient is status post cholecystectomy. Normal spleen. Normal pancreas. Normal bilateral adrenal glands. Normal right kidney. Normal left kidney. Once again, postsurgical changes seen in the second portion of the duodenum with anastomosis. This is unchanged. Normal small intestine. Normal colon. The appendix is visualized and appears normal. Normal abdominal aorta. Normal inferior vena cava. Normal retroperitoneum. Normal urinary bladder. There is evidence of a 2.5 cm cyst in the right ovary. Normal abdominal wall. Normal osseous structures. CT/Abdomen/Pelvis WITH Contrast IMPRESSION: Status post cholecystectomy. 2.57 m cyst in the right ovary. Electronically Signed: Will Jimenes, at 12:41 EDT , Service support ,
--- NOTE | 2020-03-17 08:21 | CT_ITS ---
STUDY: CT CHEST WITH CONTRAST REASON FOR EXAM: Female, 29 years old. NON HODGKIN''S LYMPHOMA RADIATION DOSAGE (If Supplied By Facility): CTDIvol = ( 9.22 ) mGy, DLP = ( 1748.78 ) mGycm TECHNIQUE: Transaxial imaging was performed following intravenous administration of IV 100ML ISOVUE 300. Multiplanar coronal and sagittal images were reformatted. Individualized dose optimization techniques were used for this CT. COMPARISON: Comparison is made with prior examination dated September 05, 2019. FINDINGS: Stable minimal increased linear markings at the left lung base suggests mild scarring. There is no demonstrated pleural abnormality. Normal heart and pericardium. Normal mediastinum. Normal hilar regions. Normal enhanced pulmonary arteries. Normal aorta arch and descending thoracic aorta. Normal osseous structures. There is no demonstrated abnormality of the visualized upper abdomen. CT/Chest WITH Contrast IMPRESSION: Normal enhanced CT Chest examination. Electronically Signed: Will Jimenes, at 12:36 EDT , Service support ,
[2020-03-17 09:00] LABS: CREATININE FINGERSTICK < 0.6 mg/dL (0.55-1.02); EGFR FINGERSTICK > 60.0000 mL/min (>60)
== END ==
PROVIDERS: PCP Family Medicine; Referring Provider Internal Medicine Hematology & Oncology; Visit Provider Internal Medicine Hematology & Oncology
DX: C83.30 Diffuse large B-cell lymphoma, unspecified site (principal); C85.90 Non-Hodgkin lymphoma, unspecified, unspecified site
CPT/HCPCS: 70491; 71260; 74177; Q9967

== ENCOUNTER → 2020-07-20 | Outpatient (CLI) | payer OTHER, SELFPAY ==
[2020-03-31 13:24] VITALS: BMI 29.5
== END | disposition home or self-care (01) ==
LOC: LABSPEC 09:01
PROVIDERS: PCP Family Medicine; Referring Provider Family Medicine; Visit Provider Family Medicine
DX: U07.1 COVID-19 (principal)
CPT/HCPCS: 87635; U0003

== ENCOUNTER → 2020-08-27 | Outpatient (CLI) | payer OTHER, SELFPAY ==
[2020-03-31 13:24] VITALS: BMI 29.5
== END | disposition home or self-care (01) ==
LOC: LABSPEC 12:19
PROVIDERS: PCP Family Medicine; Referring Provider Family Medicine; Visit Provider Family Medicine
DX: N39.0 Urinary tract infection, site not specified (principal)
CPT/HCPCS: 87077; 87086; 87088; 87186

== ENCOUNTER → 2021-03-29 09:57 | Outpatient (CLI) | payer OTHER, SELFPAY ==
[2020-12-17 13:32] VITALS: BMI 32.8
--- NOTE | 2021-03-29 09:59 | ECHODONC_ITS ---
Reason For Study: Nonrheumatic Mitral valve regurg Procedure This was a 2D Doppler, Color Flow transthoracic echocardiogram. Myocardial strain analysis was performed in this exam to aid in the assessment of cardiac function. Exam performed in department. Left Ventricle Normal LV size. Left ventricular systolic function is normal. The estimated ejection fraction is 55 %. No regional wall motion abnormalities noted. Right Ventricle Normal RV size. Normal systolic function. Atria Normal left atrium. Normal right atrium. Mitral Valve Normal mitral valve. Tricuspid Valve Normal tricuspid valve. Mild tricuspid valve insufficiency. Aortic Valve Normal aortic valve. Trisinus/trileaflet aortic valve. Pulmonic Valve Normal pulmonic valve. Great Vessels Normal aortic root. The pulmonary artery is normal size. Normal inferior vena cava. Pericardium/Pleural No pericardial effusion. MMode/2D Measurements & Calculations LVIDd: 4.5 cm IVSd: 0.64 cm Ao root diam: 3.0 cm LVIDs: 3.2 cm LVPWd: 0.62 cm RVDd: 3.0 cm FS: 29.2 % LAV(MOD-bp): 25.4 ml LA A4 area: 12.6 cm2 LA dimension(2D): 3.6 cm LAV(MOD-bp) Indexed: 12.3 ml/m2 LAV(MOD-sp2): 22.6 ml LAV(MOD-sp4): 25.4 ml RA A4 area: 11.1 cm2 Time Measurements MV dec time: 0.20 sec Doppler Measurements & Calculations MV E max francis: 103.5 cm/sec Lat Peak E' Francis: 13.9 cm/sec Med Peak E' Francis: 11.0 cm/sec MV A max francis: 72.5 cm/sec E/E' lat: 7.4 E/E' med: 9.4 MV E/A: 1.4 Ao V2 max: 120.6 cm/sec LV V1 max: 109.8 cm/sec PA V2 max: 101.9 cm/sec Ao max P.8 mmHg LV V1 max P.8 mmHg TR max francis: 238.8 cm/sec TR max P.8 mmHg ECHO/ONC Echo Complete Interpretation Summary Normal LV size. Left ventricular systolic function is normal. The estimated ejection fraction is 55 %. Mild tricuspid valve insufficiency. The global longitudinal strain is normal. The global longitudinal strain = -20. 8 % (normal). Ordering Physician: Redd Bueno Referring Physician: MARY ALICE ALMAZAN Performed By: Maya Espinoza RDCS, RVT
== END ==
PROVIDERS: PCP Family Medicine; Referring Provider Internal Medicine Cardiovascular Disease; Visit Provider Internal Medicine Cardiovascular Disease
DX: I34.0 Nonrheumatic mitral (valve) insufficiency (principal)
CPT/HCPCS: 93306; 93356

== ENCOUNTER 2021-11-17 08:55 | Outpatient (CLI) | payer OTHER, SELFPAY ==
--- NOTE | 2021-11-17 08:58 | US_ITS ---
STUDY: ULTRASOUND BREAST - RIGHT REASON FOR EXAM: Female, 31 years old. Abnormal screening mammogram. Palpable right axillary nodule. History of non-Hodgkin''s lymphoma. TECHNIQUE: Axial and longitudinal images of the RIGHT breast were performed with a high resolution ultrasound transducer. # OF IMAGES: 35 COMPARISON: Comparison is made with prior mammogram done earlier in the day. FINDINGS: RIGHT Breast: There is a 1.5 cm x 1.9 cm x 1.8 cm heterogeneous hypoechoic solid nodule in the right axilla corresponding to the patient''s palpable lump. Biopsy recommended. At the 12 o''clock position of the breast, there is a 7 mm x 7 mm x 3 mm well-defined hypoechoic solid nodule. This may represent a fibroadenoma. A similar appearing nodule measuring 1.1 cm x 1 cm by 0.7 cm is seen at the 11 o''clock position of the breast at 5 cm from nipple. There is an 8 mm x 9 mm x 6 mm hypoechoic well-defined nodule also seen at the 2 o''clock position of the breast at 4 cm from nipple. US/Breast Limited Unilateral IMPRESSION: A normal appearing right axillary lymph node. Biopsy recommended. There are 3 hypoechoic well circumscribed solid nodules are seen in the right breast as well as previously described. Biopsy recommended. ASSESSMENT CATEGORY: BIRADS Category 4: Suspicious - Biopsy Should Be Considered. A letter regarding these results will be sent to the patient by the facility within 30 days. Electronically Signed: Will Jimenes MD at 10:39 EST ,
--- NOTE | 2021-11-17 08:58 | BI_ITS ---
MAMMOGRAPHY - BILATERAL DIAGNOSTIC REASON FOR EXAM: Female, 31 years old. Enlargement of right axillary lymph nodes. Patient has a history of prior non-Hodgkin''s lymphoma. PERTINENT HISTORY: Grandmother with breast cancer. TECHNIQUE: Digital bilateral breast lisa (3D mammographic acquisition) in the CC and MLO projections. 2-D mediolateral oblique (MLO) and craniocaudad (CC) views of both breasts were obtained. CAD: Full Field Digital Mammography with Computer Added Detection was performed. COMPARISON: None. Baseline examination. FINDINGS: Breast Composition: The breasts are extremely dense, which lowers the sensitivity of mammography. There is a prominent lymph node in the right axilla measuring 2 cm x 1.4 cm. This corresponds to the patient''s palpable abnormality. There is a 1.2 cm x 1.1 cm well-defined nodule in the deep upper lateral aspect of the right breast. There is also evidence of a 7.4 mm x 8 mm well-defined nodule in the medial aspect of the right breast. Correlation with ultrasound is recommended. No other significant abnormalities are identified. BI/DIAG MAMM W/CAD, BILAT IMPRESSION: Prominent right axillary lymph node. There are 2 well-defined nodular densities are seen in the right breast as described. Correlation with ultrasound is recommended. ASSESSMENT CATEGORY: BIRADS Category 0: Incomplete. Need additional imaging evaluation. A letter regarding these results will be sent to the patient by the facility within 30 days. Approximately 10% of breast cancers are not detected by mammography. A normal mammogram should not delay biopsy of a clinically suspicious abnormality. Electronically Signed: Will Jimenes MD at 10:36 EST ,
== END 2021-11-17 23:59 | disposition home or self-care (01) ==
LOC: OPBI 08:55
PROVIDERS: PCP Family Medicine; Visit Provider Internal Medicine Hematology & Oncology
DX: L04.2 Acute lymphadenitis of upper limb (principal)
CPT/HCPCS: 76642; 77062; 77066; G0279

== ENCOUNTER 2021-11-19 15:57 | Outpatient (CLI) | payer OTHER, SELFPAY ==
--- NOTE | 2021-11-18 14:20 | BRBX_PTH ---
PATIENT: HENRIETTA LOPEZ LOC: [facility] U#:[id number] AGE/SX: 31/F ROOM: RE11/19/[address]: Dr. Cristopher Fuentes MD : 1990 BED: DIS: 11/19/2021 SPEC #: [id number] RECD: 11/19/21 15:49 STATUS: CHANDRA REKenyatta #: [id number] ROXIE: 11/18/21 14:[address]: Cristopher Fuentes DEPT: SURGICAL PATHOLOGY RECD BY: Dariana Riggins ENTERED: 11/22/21 08:34 SP TYPE: BREAST BX OTHR DR: Dr. Bob Glasgow MD Tissues: A - Right breast, NOS B - Right breast, NOS C - Right breast, NOS D - Axillary lymph node, NOS Procedures: Surgery Specimen Level IV HEADER OPERATION: Biopsy right breast x3 plus right axillary lymph node PRE-OP DIAGNOSIS: Right breast masses x3 plus enlarged right lymph node TISSUE SUBMITTED: A - Right breast 10 o?clock, B - Right breast 12 o?clock, C - Right breast 1 o?clock, D - Right axilla lymph node MICROSCOPIC DIAGNOSIS A. Right breast at 10 o?clock, core biopsy: Fibroadenoma. B. Right breast at 12 o?clock, core biopsy: Fibroadenoma. C. Right breast at 1 o?clock, core biopsy: Fibroadenoma. D. Right axillary lymph node, core biopsy: Breast parenchyma with focal intraductal hyperplasia and mild ductular dilatation. No evidence of malignancy. Mild fibrocystic change. See comment. AM:ciara 11/23/2021 COMMENT D. Lymphoid tissue is not identified. Clinical correlation is suggested. MICROSCOPIC DESCRIPTION Slides are reviewed. GROSS DESCRIPTION A - Received in fixative is one container labeled with the patient's name and designated right breast 10 o?clock. The specimen consists of multiple elongated fragments of abraham-yellow fibroadipose tissue that in aggregate measure 1.2 x 0.5 x 0.1 cm. The entire specimen is submitted in one cassette. B - Received in fixative is one container labeled with the patient's name and designated right breast 12 o?clock. The specimen consists of two elongated fragments of abraham-yellow fibroadipose tissue each measuring 1.3 cm in length and 0.1 cm in diameter. The entire specimen is submitted in one cassette. C - Received in fixative is one container labeled with the patient's name and designated right breast 1 o?clock. The specimen consists of multiple elongated fragments of abraham-yellow fibroadipose tissue that in aggregate measure 1 x 0.5 x 0.1 cm. The entire specimen is submitted in one cassette. D - Received in fixative is one container labeled with the patient's name and designated right axillary lymph node. The specimen consists of multiple elongated fragments of abraham-yellow fibroadipose tissue that in aggregate measure 1.5 x 1 x 0.1 cm. The entire specimen is submitted in one cassette. / SJ:rg 11/22/2021 TC:5 CPT: 46095 x4
== END 2021-11-19 23:59 | disposition home or self-care (01) ==
LOC: LABSPEC 15:59
PROVIDERS: PCP Family Medicine; Referring Provider Surgery; Visit Provider Surgery
DX: D24.1 Benign neoplasm of right breast (principal)
CPT/HCPCS: 88305

== ENCOUNTER 2021-12-09 08:29 | Day surgery (SDC) | payer OTHER, SELFPAY ==
--- NOTE | 2021-12-09 | AXNB_PTH ---
PATIENT: HENRIET[place]OPEZ [place] [facility] [id number] AGE/SX: 31/F ROOM: RE12/09/[address]: Dr. Cristopher Fuentes MD : 1990 BED: DIS: 12/09/2021 SPEC #: [id number] RECD: 12/09/21 10:30 STATUS: CHANDRA REKenyatta #: [id number] ROXIE: 12/09/21 00:[address]: Cristopher Fuentes DEPT: SURGICAL PATHOLOGY RECD BY: Anita Jaimes ENTERED: 12/09/21 15:31 SP TYPE: AX NODE BX OTHR DR: Dr. Bob Glasgow MD Tissues: Axillary lymph node, NOS Procedures: Special Stain Group II Surgery Specimen Level IV Imprint (control) HEADER OPERATION: Right axillary lymph node PRE-OP DIAGNOSIS: Acute axillary lymphadenitis TISSUE SUBMITTED: Right axillary lymph node, fresh MICROSCOPIC DIAGNOSIS Right axillary lymph node, biopsy: Fibroadenoma. Negative for atypia or malignancy. See comment. SJ:rg 12/10/2021 COMMENT Immediate evaluation of touch imprints shows benign epithelial cells and a few lymphocytes. No lymph node tissue is identified. Please make reference to previous specimen ([id number]) right breast at 10 o?clock, right breast at 12 o?clock and right breast at 1 o?clock, core biopsies with diagnosis of ?fibroadenoma? and right axillary lymph node, core biopsy with diagnosis of ?breast parenchyma with focal intraductal hyperplasia and ductular dilation.? This case is discussed with Dr. Fuentes on 12/10/2021. Case has been reviewed in consultation with Dr. Ross who concurs with the above diagnosis. IDC:AM MICROSCOPIC DESCRIPTION Slides are reviewed. GROSS DESCRIPTION Received fresh for flow cytometry study labeled with the patient's name is a specimen designated right axillary lymph node. The specimen consists of a abraham-white nodular tissue measuring 2.5 x 2.5 x 1 cm. The specimen is serially sectioned and reveal abraham lobular, solid cut surfaces. A portion of tissue is saved for flow cytometry study, if needed. Two touch imprints are prepared. The entire specimen is submitted in four cassettes. / SUDHEER:ciara 12/09/2021 TC:1 CPT: 95837, 21494
[2021-12-09] MEDS: Lactated Ringers 1,000 ML 15 ML IV (08:35)
[2021-12-09 08:51] LABS: Internal QC Validated? YES +Cl - CLEAR BKGD; Pregnancy, Urine Negative Negative
[2021-12-09 08:58] VITALS: BP 103/59; PULSE 74; RESP 17; TEMP 36.9; O2SAT 98; BMI 31.6
--- NOTE | 2021-12-09 09:27 | HP.PCM_ITS ---
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 Is patient in pain?: No Allergies Penicillins [PCN] Allergy (Severe, Verified 11/30/21 09:37) Hives sulfamethoxazole [From Septra] Allergy (Severe, Verified 11/30/21 09:37) Shortness of breath trimethoprim [From Septra] Allergy (Severe, Verified 11/30/21 09:37) Shortness of breath amoxicillin Adverse Reaction (Severe, Verified 11/30/21 09:37) Hives prochlorperazine [From Compazine] Adverse Reaction (Severe, Verified 11/30/21 09:37) Other Medications metoclopramide HCl 5 mg tablet 5 mg PO BID PRN 12/17/20 [History Confirmed 11/30/21] doxycycline monohydrate 100 mg PO BID 14 Days #28 tab 11/16/21 [Rx Confirmed 11/30/21] Subjective Details: Patient is doing well for breast biopsy Objective Details: Still has a large swollen lymph node in the right axilla Coding Level of Care Code Off vis,est,level 3 Diagnoses Acute axillary lymphadenitis L04.2 [facility] Medical History Bronchitis CKD (chronic kidney disease), stage II COVID-19 virus detected (07/2020) Febrile neutropenia GERD (gastroesophageal reflux disease) Hemophagocytic syndrome Hypercalcemia Hypogammaglobulinemia Large B-cell lymphoma Non-Hodgkin lymphoma Nonischemic cardiomyopathy Obesity Pancytopenia Surgical History (Updated 11/30/21 @ 09:43 by Dee Monday) History of abdominal surgery History of bone marrow biopsy History of liver biopsy History of removal of Port-a-Cath History of right breast biopsy history of umbilical resection Hx of cholecystectomy Port-A-Cath in place Status post small bowel resection Family History Grandfather Heart disease Prostate cancer Grandmother Emphysema lung CAD (coronary artery disease) Breast cancer Hypertension Social History Smoking Status: Never smoker alcohol intake: current alcohol intake frequency: a few times a month substance use type: does not use caffeine: Yes frequency: does not exercise Assessment and Plan (No Qualifiers) Assessment and Plan (1) Acute axillary lymphadenitis: Status: Acute Plan - Dr. Cristopher Fuentes MD: Patient had biopsy of 3 breast masses which all came back as fibroadenoma this was expected. The patient's biopsy of her right axillary lymph node did not come back as diagnostic and there was no lymphoid tissue. I discussed this with oncology and they recommended excisional biopsy of this right axillary lymph node due to her history of B-cell lymphoma. I discussed this with her in detail as well as the risks of bleeding, infection, seroma formation, lymphadenitis, nerve injury. Patient understands the risks and is willing to proceed with excisional biopsy of the right axillary lymph node. Cristopher Fuentes MD Pager: [facility] [address] [place] [address], [address] [place] [address] Office: I have re-examined the patient. There are no clinical changes since date of exam.
[2021-12-09] MEDS: Clindamycin 900 MG/50 ML BAG 75 MG IV (09:57)
[2021-12-09] MEDS: Bupivacaine Mpf 0.5% 30 ML VIAL (10:20)
[2021-12-09 10:37] VITALS: BP 103/59; BP 78/60; PULSE 82; RESP 16; TEMP 36.7; O2SAT 97
[2021-12-09 10:39] VITALS: BP 103/59; BP 106/72; PULSE 84; RESP 16; O2SAT 99
[2021-12-09 10:45] VITALS: BP 103/59; BP 116/76; PULSE 74; RESP 16; O2SAT 98
--- NOTE | 2021-12-09 10:46 | PCM.OPRPT ---
Problems Associated Problem List Diagnoses (1) Acute axillary lymphadenitis: Report of Operation Date of Procedure: 12/09/21 Pre-Operative Diagnosis: Right axillary lymphadenopathy Post-Operative Diagnosis: Same Surgery/Procedure Performed:: Excisional biopsy of right axillary lymph node Specimen's removed: Right axillary lymph node Description of Procedure: Patient was brought back to the operating room and general seizure was induced. The right axilla was prepped and draped in usual sterile fashion ultrasound used to tonia an optimal incision. Next local anesthetic was injected. Next an incision was made with a scalpel. Electrocautery was used to maintain hemostasis. Once lymph node was identified Harmonic Scalpel was used to dissect around the lymph node and excise it. It was sent for fresh pathology. The cavity was hemostatic and was irrigated and suctioned dry. The incision was closed with interrupted 3-0 Vicryl suture as well as a running 4-0 Monocryl suture. Glue was applied. Admit VTE Documentation VTE Mechan Device Prophylaxis: SCD's
--- NOTE | 2021-12-09 10:57 | EX.PCM.DISCH ---
Discharge Instructions Procedure General Surgery Diet Discharge Diet: Light diet - advance as tolerated Activity Discharge Activity: May Not Drive (No driving for 1 week or while taking narcotic pain meds.) May shower in (days): 1 Lifting Restrictions: 10 pounds for 1 week Dressing / Incision Call your doctor if your incision/area has: Continuous Slow Oozing, Sudden Increased Bleeding, Increased Pain/ Swelling, Increased Redness, Foul Smelling Discharge and Swelling at the incision site Call your doctor if you observe: Fever of 101 or Higher Suture Line Care: Avoid Pulling/Pushing and Avoid Pinching/Bending Cleanse incision/area with: Soap & Water Follow Up Care Please Follow Up With: Cristopher Fuentes MD When: Please call to schedule 2 week follow up appointment. [phone] Test Results: Test results from this visit will be discussed in further detail at your follow-up appointment, if applicable. Discharge Plan Admission Attending Provider: Cristopher Fuentes Primary Care Provider: Curry Glasgow Discharge Orders/Prescriptions Prescriptions: New oxycodone-acetaminophen [Percocet] 5-325 mg tablet 1 tab PO Q6H PRN (Reason: pain) 3 Days Qty: 10 RF: 0 No Action acetaminophen [Tylenol] 325 mg Tablet 650 mg PO Q4H PRN (Reason: Pain) RF: 0 Referrals / Follow Up: Curry Glasgow MD [Primary Care Provider] - Disposition Disposition (needs filled in before D/C Order can be placed): Home, Self Care
[2021-12-09 11:00] VITALS: BP 103/59; BP 104/65; PULSE 68; RESP 16; TEMP 36.4; O2SAT 96
[2021-12-09 11:50] VITALS: BP 102/64; BP 103/59; PULSE 74; RESP 16; TEMP 36.4; O2SAT 100
== END 2021-12-09 23:59 | disposition home or self-care (01) ==
LOC: SDC 08:31 → AC 08:31
PROVIDERS: Anesthesiology; PCP Family Medicine; Referring Provider Surgery; Visit Provider Surgery
PROC: (CPT 38500; principal; 2021-12-09 09:45)
DX: D24.1 Benign neoplasm of right breast (principal); I42.8 Other cardiomyopathies; N18.2 Chronic kidney disease, stage 2 (mild); K21.9 Gastro-esophageal reflux disease without esophagitis; E66.9 Obesity, unspecified; Z86.16 Personal history of COVID-19; Z85.72 Personal history of non-Hodgkin lymphomas; Z68.31 Body mass index [BMI] 31.0-31.9, adult; L04.2 Acute lymphadenitis of upper limb
CPT/HCPCS: 38525; 01610; 81025; 87426; 88305; 88313; C9803; J7120; J2405

== ENCOUNTER → 2022-01-07 | Outpatient (CLI) | payer OTHER, SELFPAY ==
[2022-01-12 17:17] LABS: HPV Reflexed? NOT INDICATED
== END | disposition home or self-care (01) ==
LOC: LABSPEC 09:31
PROVIDERS: PCP Family Medicine; Visit Provider Nurse Practitioner Women's Health
DX: Z12.4 Encounter for screening for malignant neoplasm of cervix (principal)
CPT/HCPCS: 88175; G0145

== ENCOUNTER → 2022-01-10 | Outpatient (CLI) | payer OTHER, SELFPAY | END | disposition home or self-care (01) | LOC: PAVLAB 09:21 | PROVIDERS: PCP Family Medicine; Referring Provider Nurse Practitioner Women's Health; Visit Provider Nurse Practitioner Women's Health | DX: N97.0 Female infertility associated with anovulation (principal) | CPT/HCPCS: 36415 ==

== ENCOUNTER → 2022-01-29 | Outpatient (CLI) | payer OTHER, SELFPAY ==
[2022-01-31 11:47] LABS: Progesterone Level 6.15 ng/mL (See Comment)
== END | disposition home or self-care (01) ==
LOC: LAB 07:58
PROVIDERS: PCP Family Medicine; Referring Provider Nurse Practitioner Women's Health; Visit Provider Nurse Practitioner Women's Health
DX: N97.1 Female infertility of tubal origin (principal)
CPT/HCPCS: 36415; 84144

== ENCOUNTER → 2022-04-22 | Outpatient (CLI) | payer OTHER, SELFPAY ==
[2022-04-22 15:16] LABS: Absolute Lymphocyte Count 1.42 X10^3/uL (0.83-4.51); Absolute Neutrophil Count 5.6 X10^3/uL (2.0-7.7); Basophil# 0.04 X10^3/uL; Basophil% 0.5 % (0-1); Eosinophil# 0.03 X10^3/uL; Eosinophils% 0.4 % (0-5); Hematocrit 41.3 % (37-47); Hemoglobin 13.8 g/dL (12.0-15.0); Lymphocyte # 1.42 X10^3/ul (0.83-4.51); Mean Corp Hgb Conc 33.4 g/dL (32-36); Mean Corpuscular Hgb 31.8 pg (27.0-32.0); Mean Corpuscular Volume 95.2 fL (81-99); Mean Platelet Vol. 10.8 fl (6.2-12.0); Monocyte# 0.41 X10^3/uL; Monocyte% 5.5 % (0-10); NRBC Flagged by Analyzer 0 % (0-5); Neutrophil # 5.56 X10^3/uL (2.7-7.7); Neutrophil % 74.3 % (47-70); Platelet Count 219 K/mm3 (150-450); RBC Distribution Width SD 41.9 fl (35.1-43.9); Red Blood Count 4.34 M/mm3 (4.2-5.4); White Blood Count 7.5 K/mm3 (4.4-11.0)
== END | disposition home or self-care (01) ==
PROVIDERS: PCP Family Medicine; Referring Provider Family Medicine; Visit Provider Family Medicine
DX: R59.0 Localized enlarged lymph nodes (principal)
CPT/HCPCS: 36415; 85025

== ENCOUNTER → 2022-06-10 | Outpatient (CLI) | payer OTHER, SELFPAY ==
--- NOTE | 2022-06-10 08:06 | US_ITS ---
STUDY: ULTRASOUND BREAST - RIGHT REASON FOR EXAM: Female, 32 years old. 6 month follow-up following breast biopsy. Prior resection of a right axillary lymph node. TECHNIQUE: Axial and longitudinal images of the RIGHT breast were performed with a high resolution ultrasound transducer. # OF IMAGES: 31 COMPARISON: Comparison is made with prior mammogram dated 11/17/2021 and right sonogram dated 11/17/2021. FINDINGS: RIGHT Breast: The previously seen heterogeneous right axillary lymph node has been resected. At the 12 o''clock position of the breast at 3 cm some nipple, there is a 6 mm x 8 mm x 3 mm well-defined hypoechoic nodule. A similar appearing nodule measuring 8 mm x 9 mm x 6 mm is seen at the 2 o''clock position of the breast at 4 cm from the nipple. Stable 1.1 cm x 0.9 cm x 0.7 cm hypoechoic nodule at the 11 o''clock position of the breast at 5 cm from the nipple. US/Breast Limited Unilateral IMPRESSION: Stable examination. Status post resection of the right axilla. ASSESSMENT CATEGORY: BIRADS Category 2: Benign. A letter regarding these results will be sent to the patient by the facility within 30 days. Electronically Signed: Will Jimenes MD at 12:44 EDT ,
== END | disposition home or self-care (01) ==
PROVIDERS: PCP Family Medicine; Visit Provider Surgery
DX: N63.10 Unspecified lump in the right breast, unspecified quadrant (principal)
CPT/HCPCS: 76642

== ENCOUNTER → 2022-10-19 | Outpatient (CLI) | payer BC, SELFPAY ==
[2022-10-19 14:55] LABS: Absolute Lymphocyte Count 2.01 X10^3/uL (0.83-4.51); Absolute Neutrophil Count 3.8 X10^3/uL (2.0-7.7); Basophil# 0.04 X10^3/uL; Basophil% 0.6 % (0-1); Eosinophil# 0.04 X10^3/uL; Eosinophils% 0.6 % (0-5); Hemoglobin 13.8 g/dL (12.0-15.0); Lymphocyte # 2.01 X10^3/ul (0.83-4.51); Lymphocyte % 31.9 % (19-41); Mean Corp Hgb Conc 33.7 g/dL (32-36); Mean Corpuscular Hgb 32.2 pg (27.0-32.0); Mean Corpuscular Volume 95.8 fL (81-99); Mean Platelet Vol. 10.6 fl (6.2-12.0); Monocyte# 0.39 X10^3/uL; Monocyte% 6.2 % (0-10); NRBC Flagged by Analyzer 0 % (0-5); Neutrophil % 60.2 % (47-70); Platelet Count 195 K/mm3 (150-450); RBC Distribution Width CV 12.3 % (11.6-14.6); RBC Distribution Width SD 42.6 fl (35.1-43.9); Red Blood Count 4.28 M/mm3 (4.2-5.4); White Blood Count 6.3 K/mm3 (4.4-11.0)
[2022-10-19 15:01] LABS: Erythrocyte Sedimentation Rate 3 mm/hr (0-30)
[2022-10-19 15:19] LABS: ALB/GLOB Ratio 1.3 RATIO (0.9-2.4); AST(SGOT) 13 U/L (15-37); Alanine Aminotransfer ALT/SGPT 20 U/L (13-56); Albumin, Serum 3.7 g/dL (3.2-5.0); Alkaline Phosphatase 65 U/L (45-117); Anion Gap 6 (5-15); BUN 11 mg/dL (7-18); BUN/Creat Ratio 16.6 RATIO (10-20); Calcium,Total 9.2 mg/dL (8.5-10.1); Chloride 109 mmol/L (98-107); Creatinine, Serum 0.66 mg/dL (0.55-1.02); EST Glomerular Filtration Rate 111 mL/min (>60); Est Glom Filt Rate - Afr Amer 134 mL/min (>60); Globulin 2.9 g/dL (2.2-4.2); Glucose 94 mg/dL (74-106); Potassium 4.1 mmol/L (3.5-5.1); Protein, Total 6.6 g/dL (6.4-8.2); Sodium Level 141 mmol/L (136-145)
== END | disposition home or self-care (01) ==
PROVIDERS: PCP Family Medicine; Referring Provider Family Medicine; Visit Provider Family Medicine
DX: R10.9 Unspecified abdominal pain (principal)
CPT/HCPCS: 36415; 80053; 85025; 85652; 87086; 87088

== ENCOUNTER → 2022-11-25 | Outpatient (CLI) | payer BC, SELFPAY ==
[2022-11-25 08:19] LABS: Hematocrit 41.3 % (37-47); Hemoglobin 13.8 g/dL (12.0-15.0); Mean Corp Hgb Conc 33.4 g/dL (32-36); Mean Corpuscular Hgb 31.7 pg (27.0-32.0); Mean Corpuscular Volume 94.7 fL (81-99); Mean Platelet Vol. 10.4 fl (6.2-12.0); Platelet Count 193 K/mm3 (150-450); RBC Distribution Width CV 11.8 % (11.6-14.6); RBC Distribution Width SD 40.5 fl (35.1-43.9); Red Blood Count 4.36 M/mm3 (4.2-5.4); White Blood Count 6.1 K/mm3 (4.4-11.0)
[2022-11-25 08:43] LABS: hCG Titer Quant., Serum < 1 mIU/mL (1-3)
[2022-11-25 08:46] LABS: Hemoglobin A1c 4.9 % (3.8-5.6)
[2022-11-25 08:51] LABS: ALB/GLOB Ratio 1.4 RATIO (0.9-2.4); AST(SGOT) 13 U/L (15-37); Alanine Aminotransfer ALT/SGPT 22 U/L (13-56); Alkaline Phosphatase 78 U/L (45-117); Anion Gap 7 (5-15); BUN 11 mg/dL (7-18); BUN/Creat Ratio 13.6 RATIO (10-20); Calcium,Total 9.7 mg/dL (8.5-10.1); Chloride 109 mmol/L (98-107); Creatinine, Serum 0.81 mg/dL (0.55-1.02); EST Glomerular Filtration Rate 88 mL/min (>60); Est Glom Filt Rate - Afr Amer 106 mL/min (>60); Follicle Stimulating Hormone 5.5 mIU/mL; Globulin 2.8 g/dL (2.2-4.2); Glucose 97 mg/dL (74-106); Luteinizing Hormone 7.3 mIU/mL; Potassium 3.6 mmol/L (3.5-5.1); Prolactin 15.2 ng/mL; Protein, Total 6.8 g/dL (6.4-8.2); Sodium Level 141 mmol/L (136-145); Thyroid Stim Hormone (TSH) 3.25 uIU/mL (0.358-3.74)
[2022-11-25 09:22] LABS: HIV - WCH Non-Reactive (Nonreactive); Hepatitis B Surface Antigen Non-Reactive (Nonreactive); Hepatitis C Antibody Non-Reactive (Nonreactive); Progesterone Level 2.51 ng/mL (See Comment); Rubella IgG Reactive (Nonreactive); Syphilis Antibodies Non-reactive; Vitamin D,25 Hydroxy 25.9 ng/mL
[2022-12-01 20:26] LABS: Anti-Mullerian Hormone,Serum 2.58 ng/mL (.); Testosterone Free 0.9 pg/mL (0.0-4.2); V-Zoster IgG (Immunity) 588 index (Immune >165)
== END | disposition home or self-care (01) ==
LOC: PAVLAB 07:57
PROVIDERS: PCP Family Medicine; Referring Provider Nurse Practitioner Women's Health; Visit Provider Nurse Practitioner Women's Health
DX: N97.1 Female infertility of tubal origin (principal)
CPT/HCPCS: 36415; 80053; 82306; 82670; 83001; 83002; 83036; 83516; 84144; 84146; 84402; 84443; 84702; 85027; 86703; 86762; 86780; 86787; 86803; 86900; 86901; 87340

== ENCOUNTER → 2022-12-05 | Outpatient (CLI) | payer BC, SELFPAY ==
--- NOTE | 2022-12-05 11:00 | RAD_ITS ---
INDICATION: infertility EXAMINATION/TECHNIQUE: Routine hysterosalpingography was performed. Total Fluoroscopic Time: 30 seconds AND number of Fluoroscopic Images: 2 OR Radiation dosage index: 11.64 mGy COMPARISON: None. FINDINGS: The uterine cavity contour is unremarkable. There are no filling defects or abnormalities. Both fallopian tubes are patent with free peritoneal spillage bilaterally. RAD/Salpingogram IMPRESSION: Negative hysterosalpingogram. Electronically Signed: Will Jimenes MD at 16:36 EDT ,
--- NOTE | 2022-12-05 18:33 | OP.PCM_ITS ---
Problems Associated Problem List Diagnoses (1) Infertility: Report of Operation Description of Surgical Findings:: Preop diagnosis: Infertility Postop diagnosis: Same plus bilateral tubal patency Procedure: Hysterosalpingogram Surgeon: Melina Green Implantable devices: None Complications: None Findings: Bilateral tubal patency and normal uterine cavity Operative details: Patient was taken to the x-ray room and was placed on the x- ray table and was in the dorsal lithotomy position. Speculum was placed in the vagina and the cervix prepped with Betadine and the HSG catheter was easily introduced into the uterus and speculum removed. Radiologist was brought in and while pushing radiopaque dye into the uterus via the HSG catheter the radiologist took multiple images and views and confirmed bilateral tubal patency seen. No gross uterine filling defects or abnormalities were seen. All instruments removed from the vagina and the uterus without complication. Patient tolerated the procedure well. Multi Select Codes Urinary/Genital Urinary/Genital CPT Codes: 07216 HSG/SIS
== END | disposition home or self-care (01) ==
LOC: RAD 10:13
PROVIDERS: PCP Family Medicine; Visit Provider Obstetrics & Gynecology
DX: N97.1 Female infertility of tubal origin (principal)
CPT/HCPCS: 58340; 74740; Q9967

== ENCOUNTER → 2023-01-11 | Outpatient (CLI) | payer BC, SELFPAY ==
[2023-01-19 12:09] LABS: HPV APTIMA, High Risk Negative (Negative)
== END | disposition home or self-care (01) ==
PROVIDERS: PCP Family Medicine; Visit Provider Nurse Practitioner Women's Health
DX: Z01.419 Encounter for gynecological examination (general) (routine) without abnormal findings (principal)
CPT/HCPCS: 87624; 88175; G0145

== ENCOUNTER 2023-02-07 05:57 | Day surgery (SDC) | payer BC, SELFPAY ==
[2023-02-07 06:38] VITALS: BP 97/62; PULSE 68; RESP 16; TEMP 36.3; O2SAT 98; BMI 30.2
[2023-02-07 06:41] LABS: Internal QC Validated? YES +Cl - CLEAR BKGD; Pregnancy, Urine Negative Negative
[2023-02-07 06:57] LABS: Hematocrit 37.4 % (37-47); Hemoglobin 12.6 g/dL (12.0-15.0); Mean Corp Hgb Conc 33.7 g/dL (32-36); Mean Corpuscular Hgb 32.1 pg (27.0-32.0); Mean Corpuscular Volume 95.4 fL (81-99); Mean Platelet Vol. 10.5 fl (6.2-12.0); Platelet Count 169 K/mm3 (150-450); RBC Distribution Width CV 12.5 % (11.6-14.6); RBC Distribution Width SD 43.7 fl (35.1-43.9); Red Blood Count 3.92 M/mm3 (4.2-5.4); White Blood Count 5.2 K/mm3 (4.4-11.0)
[2023-02-07] MEDS: Lactated Ringers 1,000 ML 15 ML IV (07:05)
--- NOTE | 2023-02-07 07:28 | DCINST_ITS ---
Discharge Instructions Diet Discharge Diet: No restrictions Activity Discharge Activity: Return to Normal Activity, May Shower and May Take a Tub Bath (after 1 week) May resume sexual activity in: 1-2 weeks Weight Bearing Status: Weight bearing as tolerated Lifting Restrictions: none Dressing / Incision Call your doctor if you observe: Fever of 101 or Higher, Using more than 1 pad per hour, Shortness of breath and Uncontrolled pain Follow Up Care Please Follow Up With: Shital Saeed DO When: Call [phone] to schedule appointment. Test Results: Test results from this visit will be discussed in further detail at your follow- up appointment, if applicable. Discharge Plan Admission Primary Reason for Your Visit: hysteroscopy d&c Attending Provider: Shital Saeed Primary Care Provider: Curry Glasgow Discharge Orders/Prescriptions Prescriptions: New naproxen 500 mg tablet 500 mg PO BID PRN (Reason: pain) Qty: 20 0RF Continued multivitamin Tablet 1 tab PO DAILY prenat.vits,meek,pge-xupt-gbyzq Tablet 1 tab PO DAILY acetaminophen [Tylenol] 325 mg Tablet 650 mg PO Q4H PRN (Reason: Pain) multivitamin Tablet 1 tab PO DAILY ascorbic acid (vitamin C) [Vitamin C] 250 mg Tablet 250 mg PO DAILY No Action cholecalciferol (vitamin D3) 25 mcg (1,000 unit) capsule 75 mcg PO DAILY Referrals / Follow Up: Curry Glasgow MD [Primary Care Provider] - Disposition Disposition (needs filled in before D/C Order can be placed): Home, Self Care
--- NOTE | 2023-02-07 07:28 | PCM.HP.BLA ---
History and Physical Date of Admission: 02/07/23 Intake Vital Signs ? 07/05/2213:25 01/10/2310:41 01/10/2310:42 Height 5 ft 8 in 5 ft 8 in 5 ft 8 in Weight: ? 203 lb ? BMI ? 30.9 ? BP ? 111/71 ? Intake Visit Reasons:?pre-op consultation Trapeze Performer Required: No Is patient in pain?: No Allergies Penicillins [PCN] Allergy (Severe, Verified 01/10/23 10:40) Hivessulfamethoxazole [From Septra] Allergy (Severe, Verified 01/10/23 10:40) Shortness of breathtrimethoprim [From Septra] Allergy (Severe, Verified 01/10/23 10:40) Shortness of breathamoxicillin Adverse Reaction (Severe, Verified 01/10/23 10:40) Hivesprochlorperazine [From Compazine] Adverse Reaction (Severe, Verified 01/10/23 10:40) Other Medications acetaminophen 325 mg tablet (Tylenol) 650 mg PO Q4H PRN Pain 12/03/21 [History Confirmed 01/10/23] cholecalciferol (vitamin D3) 25 mcg (1,000 unit) capsule 75 mcg PO DAILY 01/04/23 [History Confirmed 01/10/23] multivitamin 1 tab PO DAILY 01/04/23 [History Confirmed 01/10/23] prenat.vits,meek,ujd-vwve-lwnrx 1 tab PO DAILY 01/04/23 [History Confirmed 01/10/23] Post menopausal: No Patient : No : No PFSH Medical History? Alcohol use Bronchitis Cardiology follow-up encounter CKD (chronic kidney disease), stage II COVID-19 virus detected (07/2020) Febrile neutropenia Heartburn Hemophagocytic syndrome History of echocardiogram History of edema Hypercalcemia Hypogammaglobulinemia Large B-cell lymphoma Leg cramps Migraine headache Non-Hodgkin lymphoma Non-smoker Nonischemic cardiomyopathy Obesity Pancytopenia Wears contact lenses Surgical History? History of abdominal surgery History of bone marrow biopsy History of liver biopsy History of removal of Port-a-Cath History of right breast biopsy history of umbilical resection Hx of cholecystectomy Hx of wisdom tooth extraction Port-A-Cath in place Status post small bowel resection Family History? Grandfather Heart disease Prostate cancerGrandmother Emphysema lung CAD (coronary artery disease) Breast cancer HypertensionUnknown Breast cancer,? Onset Age: 32 Social History? household members:? spouse current occupational status:? employed current occupation:? [employer] Smoking Status:? Never smoker alcohol intake:? current alcohol intake frequency: a few times a month substance use type:? does not use caffeine:? Yes what type of physical activity do you participate in:? bicycling frequency:? 1-2 times per week seatbelt use:? always do you feel safe at home:? Yes additional social history:? - [place] HPI pre-op consultation Details: HENRIETTA LOPEZ is a 32 year old who presents for pre-op exam. She is going through infertility work up with [facility] and they need an HSG (which was normal) and either an SIS or Hysteroscopy D&C to examine the uterine cavity. She is now 5 years in remission from lymphoma and took the R CHOP regimen. She has had routine labs done that show she is not menopausal and ovulating very early in her cycle (day 5-7) History ? ? ? 0 ? Elective abortions ? Hx Para ? Spontaneous abortions ? Hx # Term Pregnancies ? Ectopic pregnancies ? Hx # Pregnancies ? Multiple births ? # of living children ? ROS Const ROS Unobtainable: All systems reviewed & are unremarkable except as noted in H Resp Resp: Denies cough GI GI: Reports as per HPI Psych Psych: Reports system reviewed and no additional complaints, except as documented Exam Const General: cooperative, healthy appearing, comfortable and no acute distress Resp Effort & Inspection: normal respiratory effort Skin General: no rashes or lesions noted Psych Appearance: grossly normal Speech and Movement: speech and movement normal Coding Level of Care Code Off vis,est,level 4 Diagnoses Infertility? Large B-cell lymphoma? C85.10 CKD (chronic kidney disease), stage II? N18.2 Nonischemic cardiomyopathy? I42.8 Assessment and Plan Assessment and Plan (1) Infertility: ?Status:?Acute ?Comment: patent tubes (2) Large B-cell lymphoma: ?Status:?Resolved ?Comment: treated with 6 cycles of R-CHOP and intrathecal methotrexate x4 between August 2017 through November 2017 (3) CKD (chronic kidney disease), stage II: ?Status:?Chronic (4) Nonischemic cardiomyopathy: ?Status:?Chronic Plan After discussing the patient's diagnosis and treatment plan options, patient wishes to proceed with surgical management.? I have discussed with the patient the risks, benefits, and alternatives of the procedure which include but are not limited to risks of anesthesia, bleeding, infection, possible damage to bowel, bladder, or surrounding vasculature which could lead to additional surgery to evaluate any complications.? Patient agrees to procedure and wishes to proceed.? ACOG/uptodate references given for additional information regarding procedure.? plan for hysteroscopy D&C and obtain pictures for [facility].
--- NOTE | 2023-02-07 07:30 | EMB_PTH ---
PATIENT: HENRIETTA LOPEZ [place] [facility] [place][id number] AGE/SX: 32/ ROOM: RE02/07/[address]: Dr. Shital Saeed DO : 1990 BED: DIS: 02/07/2023 SPEC #: [id number] RECD: 02/07/23 08:36 STATUS: CHANDRA FIOR #: [id number] ROXIE: 02/07/23 07:[address]: Shital Saeed DEPT: SURGICAL PATHOLOGY RECD BY: Dariana Riggins ENTERED: 02/07/23 09:11 SP TYPE: ENDOM BX/C ANÍBALHR DR: Dr. Bob Glasgow MD Tissues: Endometrium, NOS Procedures: Surgery Specimen Level IV HEADER OPERATION: Diagnostic hysteroscopy, dilation and curettage PRE-OP DIAGNOSIS: Infertility TISSUE SUBMITTED: Endometrial curettings MICROSCOPIC DIAGNOSIS Endometrial curettings: Proliferative endometrium. SJ:ciara 02/08/2023 MICROSCOPIC DESCRIPTION Slides are reviewed. GROSS DESCRIPTION Received in fixative is one container labeled with the patient's name and designated endometrial curettings. The specimen consists of multiple fragments of hemorrhagic mucoid tissue that in aggregate measure 2.5 x 1.0 x 0.1 cm. The specimen is totally submitted in one cassette. / SUDHEER:ciara 02/07/2023 TC:4 CPT: 25368
[2023-02-07] MEDS: Lidocaine 1% (30 ml sdv) 30 ML Vial (07:48)
--- NOTE | 2023-02-07 08:02 | PCM.OPRPT ---
Problems Associated Problem List Diagnoses (1) Infertility: Report of Operation Date of Procedure: 02/07/23 Pre-Operative Diagnosis: infertility, unexplained Post-Operative Diagnosis: Infertility, unexplained Surgery/Procedure Performed:: diagnostic hysteroscopy dilation and curettage Description of Surgical Findings:: normal cervxi, uterine cavity, and tubal ostia Surgeon: Shital Saeed Type of Anesthesia: MAC/Supplemental/Local Anesthesiologist: Douglas Parker Specimen's removed: endometrial curetting's Estimated Blood Loss (mL): 3 Description of Procedure: Patient was prepped and draped in a normal sterile fashion under MAC anesthesia.? A weighted speculum was placed in the vagina and the anterior lip of the cervix was grasped with a single-tooth tenaculum.? A paracervical block was placed with 1% lidocaine.? Cervix was progressively dilated to allow passage of a 5 mm hysteroscope.?Uterine sounded to 8 cm. The lining was fully visualized and noted to have a normal appearance without mass, septum, or polyps.? ? Curettage was performed and he specimen was sent to pathology.? All instruments were removed from the vagina and excellent hemostasis was noted.? Patient was awoken and taken to recovery in stable condition. Complications none Admit VTE Documentation VTE Present on Admission: No VTE Mechan Device Prophylaxis: SCD's VTE Pharm Prophylaxis ordered?: No Multi Select Codes Urinary/Genital Urinary/Genital CPT Codes: 47054 Hysteroscopy,EMC, Polypectomy
[2023-02-07 08:05] VITALS: BP 100/61; BP 97/62; PULSE 75; RESP 18; TEMP 36.2; O2SAT 99
[2023-02-07 08:10] VITALS: BP 104/71; BP 97/62; PULSE 75; RESP 18; O2SAT 100
[2023-02-07 08:15] VITALS: BP 101/60; BP 97/62; PULSE 71; RESP 16; O2SAT 100
[2023-02-07 08:19] VITALS: BP 97/62; BP 99/67; PULSE 68; RESP 16; O2SAT 100
[2023-02-07] MEDS: Ketorolac 30 MG/ML Syringe IV (08:19)
[2023-02-07 08:40] VITALS: BP 97/62
== END 2023-02-07 09:38 | disposition home or self-care (01) ==
LOC: SDC 06:00 → AC 06:03
PROVIDERS: PCP Family Medicine; Referring Provider Obstetrics & Gynecology; Visit Provider Obstetrics & Gynecology
PROC: 0UDB8ZZ Extraction of Endometrium, Via Natural or Artificial Opening Endoscopic (ICD-10-PCS; CPT 58558; principal; 2023-02-07 07:20)
DX: N97.9 Female infertility, unspecified (principal); C85.10 Unspecified B-cell lymphoma, unspecified site; I42.8 Other cardiomyopathies; Z80.3 Family history of malignant neoplasm of breast; N18.2 Chronic kidney disease, stage 2 (mild)
CPT/HCPCS: 58558; 00952; 81025; 85027; 86850; 86900; 86901; 88305; J7120; J2405

== ENCOUNTER → 2023-04-14 | Outpatient (CLI) | payer BC, SELFPAY ==
[2023-04-14 10:28] LABS: hCG Titer Quant., Serum < 1 mIU/mL (1-3)
== END | disposition home or self-care (01) ==
LOC: PAVLAB 09:27
PROVIDERS: PCP Family Medicine; Referring Provider Registered Nurse; Visit Provider Registered Nurse
DX: N93.9 Abnormal uterine and vaginal bleeding, unspecified (principal)
CPT/HCPCS: 36415; 84702

== ENCOUNTER → 2023-12-22 | Outpatient (CLI) | payer BC, SELFPAY ==
[2023-12-22 10:03] LABS: Absolute Lymphocyte Count 2.25 X10^3/uL (0.83-4.51); Absolute Neutrophil Count 3.1 X10^3/uL (2.0-7.7); Basophil# 0.05 X10^3/uL; Basophil% 0.8 % (0-1); Eosinophil# 0.08 X10^3/uL; Eosinophils% 1.3 % (0-5); Hematocrit 39.2 % (37-47); Hemoglobin 12.9 g/dL (12.0-15.0); Lymphocyte # 2.25 X10^3/ul (0.83-4.51); Lymphocyte % 37.9 % (19-41); Mean Corp Hgb Conc 32.9 g/dL (32-36); Mean Corpuscular Hgb 30.4 pg (27.0-32.0); Mean Corpuscular Volume 92.5 fL (81-99); Mean Platelet Vol. 10.7 fl (6.2-12.0); Monocyte# 0.42 X10^3/uL; Monocyte% 7.1 % (0-10); NRBC Flagged by Analyzer 0 % (0-5); Neutrophil # 3.11 X10^3/uL (2.7-7.7); Neutrophil % 52.6 % (47-70); Platelet Count 206 K/mm3 (150-450); RBC Distribution Width CV 12.3 % (11.6-14.6); RBC Distribution Width SD 41.8 fl (35.1-43.9); Red Blood Count 4.24 M/mm3 (4.2-5.4); White Blood Count 5.9 K/mm3 (4.4-11.0)
[2023-12-22 10:31] LABS: ALB/GLOB Ratio 1.4 RATIO (0.9-2.4); AST(SGOT) 10 U/L (15-37); Alanine Aminotransfer ALT/SGPT 17 U/L (13-56); Albumin, Serum 3.9 g/dL (3.2-5.0); Alkaline Phosphatase 58 U/L (45-117); Anion Gap 4 (5-15); BUN 11 mg/dL (7-18); BUN/Creat Ratio 17.1 RATIO (10-20); Chloride 112 mmol/L (98-107); Creatinine, Serum 0.64 mg/dL (0.55-1.02); EST Glomerular Filtration Rate 114 mL/min (>60); Est Glom Filt Rate - Afr Amer 138 mL/min (>60); Globulin 2.8 g/dL (2.2-4.2); Glucose 95 mg/dL (74-106); Potassium 3.7 mmol/L (3.5-5.1); Protein, Total 6.7 g/dL (6.4-8.2); Sodium Level 139 mmol/L (136-145)
[2023-12-22 10:32] LABS: LDH 136 U/L (84-246)
[2023-12-22 17:53] LABS: Xtra Tube EP Lab EXTRA TUBE
== END | disposition home or self-care (01) ==
PROVIDERS: Internal Medicine Hematology & Oncology; PCP Family Medicine; Referring Provider Internal Medicine Cardiovascular Disease; Visit Provider Internal Medicine Cardiovascular Disease
DX: C85.10 Unspecified B-cell lymphoma, unspecified site (principal)
CPT/HCPCS: 36415; 80053; 82248; 83615; 85025

== ENCOUNTER → 2023-12-28 | Outpatient (CLI) | payer BC, SELFPAY ==
[2023-12-28 14:13] LABS: Hematocrit 36.2 % (37-47); Hemoglobin 12.3 g/dL (12.0-15.0); Mean Corpuscular Hgb 31.5 pg (27.0-32.0); Mean Corpuscular Volume 92.6 fL (81-99); Mean Platelet Vol. 11.5 fl (6.2-12.0); Platelet Count 175 K/mm3 (150-450); RBC Distribution Width CV 12.4 % (11.6-14.6); RBC Distribution Width SD 42.1 fl (35.1-43.9); Red Blood Count 3.91 M/mm3 (4.2-5.4); White Blood Count 4.7 K/mm3 (4.4-11.0)
[2023-12-28 14:50] LABS: Hemoglobin A1c 4.8 % (3.8-5.6)
[2023-12-28 15:15] LABS: ALB/GLOB Ratio 1.4 RATIO (0.9-2.4); AST(SGOT) 8 U/L (15-37); Alanine Aminotransfer ALT/SGPT 18 U/L (13-56); Albumin, Serum 3.8 g/dL (3.2-5.0); Alkaline Phosphatase 58 U/L (45-117); Anion Gap 6 (5-15); BUN 10 mg/dL (7-18); BUN/Creat Ratio 15.6 RATIO (10-20); Chloride 110 mmol/L (98-107); Creatinine, Serum 0.64 mg/dL (0.55-1.02); EST Glomerular Filtration Rate 114 mL/min (>60); Est Glom Filt Rate - Afr Amer 138 mL/min (>60); Globulin 2.8 g/dL (2.2-4.2); Glucose 93 mg/dL (74-106); Potassium 3.5 mmol/L (3.5-5.1); Prolactin 28.7 ng/mL; Protein, Total 6.6 g/dL (6.4-8.2); Sodium Level 140 mmol/L (136-145); Thyroid Stim Hormone (TSH) 1.13 uIU/mL (0.358-3.74)
[2023-12-28 17:57] LABS: HIV - WCH Preliminary Reactive (Nonreactive); Hepatitis C Antibody Non-Reactive (Nonreactive); Rubella IgG Reactive (Nonreactive); Syphilis Antibodies Non-reactive; Vitamin D,25 Hydroxy 43.8 ng/mL
[2023-12-29 09:29] LABS: Hepatitis B Surface Antigen REACTIVE (Nonreactive)
[2024-01-02 08:06] LABS: Anti-Mullerian Hormone,Serum 2.84 ng/mL (.); V-Zoster IgG (Immunity) 384 index (Immune >165)
== END | disposition home or self-care (01) ==
PROVIDERS: PCP Family Medicine; Referring Provider Obstetrics & Gynecology Reproductive Endocrinology; Visit Provider Obstetrics & Gynecology Reproductive Endocrinology
DX: Z31.41 Encounter for fertility testing (principal)
CPT/HCPCS: 36415; 80053; 82306; 83036; 83516; 84146; 84403; 84443; 85027; 86703; 86762; 86780; 86787; 86803; 86850; 86900; 86901; 87340

== ENCOUNTER → 2024-01-16 | Outpatient (CLI) | payer BC, SELFPAY | END | disposition home or self-care (01) | PROVIDERS: PCP Family Medicine; Referring Provider Obstetrics & Gynecology Reproductive Endocrinology; Visit Provider Obstetrics & Gynecology Reproductive Endocrinology | DX: Z31.41 Encounter for fertility testing (principal) | CPT/HCPCS: 36415 ==

== ENCOUNTER → 2024-01-18 | Outpatient (CLI) | payer BC, SELFPAY ==
--- NOTE | 2024-01-18 13:58 | ECHODONC_ITS ---
Reason For Study: ANTINEOPLASTIC CHEMO Procedure This was a 2D Doppler, Color Flow transthoracic echocardiogram. Myocardial strain analysis was performed in this exam to aid in the assessment of cardiac function. Exam performed in department. Left Ventricle Normal LV size. Left ventricular systolic function is normal. The estimated ejection fraction is 55 %. No regional wall motion abnormalities noted. Right Ventricle Normal right ventricle. Normal systolic function. Atria Normal left atrium. Normal right atrium. Mitral Valve Normal mitral valve. Tricuspid Valve Normal tricuspid valve. Aortic Valve Normal aortic valve. Trisinus/trileaflet aortic valve. Pulmonic Valve Normal pulmonic valve. Great Vessels Normal aortic root. The pulmonary artery is normal size. Normal inferior vena cava. Pericardium/Pleural No pericardial effusion. MMode/2D Measurements & Calculations LVIDd: 4.1 cm IVSd: 0.85 cm LAV(MOD-bp): 31.7 ml LVIDs: 3.3 cm LVPWd: 0.80 cm LAV(MOD-bp) Indexed: 17.1 ml/m2 RVDd: 1.9 cm FS: 21.4 % LAV(MOD-sp2): 39.3 ml LAV(MOD-sp4): 22.5 ml SV(MOD-sp4): 38.0 ml SV(sp4-el): 38.3 ml LVAd ap4: 26.9 cm2 LVLd ap4: 8.2 cm EDV(MOD-sp4): 73.4 ml EDV(sp4-el): 74.5 ml LVAs ap4: 16.9 cm2 LVLs ap4: 6.7 cm ESV(MOD-sp4): 35.5 ml ESV(sp4-el): 36.3 ml EF(MOD-sp4): 51.7 % EF(sp4-el): 51.3 % LA A4 area: 11.7 cm2 LA dimension(2D): 3.0 cm RA A4 area: 11.5 cm2 TAPSE: 2.1 cm Time Measurements MV dec time: 0.23 sec Doppler Measurements & Calculations MV E max francis: 88.1 cm/sec Lat Peak E' Francis: 14.7 cm/sec Med Peak E' Francis: 11.9 cm/sec MV A max francis: 58.8 cm/sec E/E' lat: 6.0 E/E' med: 7.4 MV E/A: 1.5 MV V2 max: 91.9 cm/sec Ao V2 max: 132.4 cm/sec MV max P.4 mmHg MV dec slope: 391.9 cm/sec2 Ao max P.0 mmHg MV V2 mean: 62.1 cm/sec Ao V2 mean: 94.2 cm/sec MV mean P.7 mmHg Ao mean P.0 mmHg MV V2 VTI: 26.1 cm Ao V2 VTI: 27.5 cm AV (velocity ratio): 0.90 LV V1 max: 115.9 cm/sec PA V2 max: 105.7 cm/sec LV V1 max P.4 mmHg PA V2 mean: 78.6 cm/sec LV V1 mean P.3 mmHg LV V1 mean: 86.5 cm/sec LV V1 VTI: 24.7 cm ECHO/ONC Echo Complete Interpretation Summary Normal LV size. Left ventricular systolic function is normal. The estimated ejection fraction is 55 %. The global longitudinal strain is normal. The global longitudinal strain = -19. 4 % (normal). Ordering Physician: Redd Bueno Referring Physician: Redd Bueno Performed By: Kira Guy RCS
== END | disposition home or self-care (01) ==
LOC: CVS 13:57
PROVIDERS: PCP Family Medicine; Referring Provider Internal Medicine Cardiovascular Disease; Visit Provider Internal Medicine Cardiovascular Disease
DX: I34.0 Nonrheumatic mitral (valve) insufficiency (principal)
CPT/HCPCS: 93306; 93356

== ENCOUNTER → 2024-03-20 | Outpatient (CLI) | payer BC, SELFPAY ==
[2024-03-20 17:39] LABS: International Normalized Ratio 1.1; Prothrombin Time (Protime)PT. 13.7 SECONDS (11.7-14.9)
[2024-03-20 17:40] LABS: Partial Thromboplast Time 31.2 Seconds (24.1-36.2)
[2024-03-20 17:50] LABS: Fibrinogen 329 mg/dl (203-444)
== END | disposition home or self-care (01) ==
LOC: LAB 16:31
PROVIDERS: PCP Family Medicine; Referring Provider Nurse Practitioner Family; Visit Provider Nurse Practitioner Family
DX: R23.3 Spontaneous ecchymoses (principal); Z85.72 Personal history of non-Hodgkin lymphomas
CPT/HCPCS: 36415; 85245; 85384; 85610; 85730

== ENCOUNTER → 2024-03-29 | Outpatient (CLI) | payer BC, SELFPAY ==
--- NOTE | 2024-03-29 09:08 | US_ITS ---
STUDY: ULTRASOUND BREAST - RIGHT REASON FOR EXAM: Female, 33 years old. Right axillary pain. TECHNIQUE: Axial and longitudinal images of the RIGHT breast were performed with a high resolution ultrasound transducer. # OF IMAGES: 35 COMPARISON: None. FINDINGS: RIGHT Breast: Targeted sonogram of the right axilla was obtained. There is a 1.2 cm x 0.6 cm x 0.5 cm benign-appearing lymph node. A similar appearing lymph node measuring 1.2 cm x 1 cm x 0.3 cm seen as well. US/Breast Limited Unilateral IMPRESSION: There are 2, small adjacent benign appearing right axillary lymph nodes. ASSESSMENT CATEGORY: BIRADS Category 2: Benign. A letter regarding these results will be sent to the patient by the facility within 30 days. Electronically Signed: Will Jimenes MD at 10:50 EDT ,
== END | disposition home or self-care (01) ==
PROVIDERS: PCP Family Medicine; Referring Provider Nurse Practitioner Family; Visit Provider Nurse Practitioner Family
DX: M79.621 Pain in right upper arm (principal)
CPT/HCPCS: 76642

== ENCOUNTER → 2024-05-29 | Outpatient (CLI) | payer BC, SELFPAY ==
[2024-05-29 13:14] LABS: Syphilis Antibodies Non-reactive
[2024-05-29 13:24] LABS: HIV - WCH Non-Reactive (Nonreactive)
[2024-05-31 21:07] LABS: Chlamydia By Nucleic Acid AMP Negative (Negative); Gonococcus By Nucleic Acid AMP Negative (Negative)
[2024-06-01 01:07] LABS: HCV Quant. RNA PCR HCV Not Detected IU/mL (.); HSV 1 IgG < 0.91 index (0.00-0.90); HSV 2 IgG < 0.91 index (0.00-0.90)
== END | disposition home or self-care (01) ==
PROVIDERS: PCP Family Medicine; Referring Provider Nurse Practitioner Family; Visit Provider Nurse Practitioner Family
DX: Z20.2 Contact with and (suspected) exposure to infections with a predominantly sexual mode of transmission (principal)
CPT/HCPCS: 36415; 86695; 86696; 86703; 86780; 87070; 87205; 87491; 87522; 87591

== ENCOUNTER → 2024-08-05 | Outpatient (CLI) | payer BC, SELFPAY | END | disposition home or self-care (01) | LOC: LABSPEC 15:07 | PROVIDERS: PCP Family Medicine; Referring Provider Advanced Practice Midwife; Visit Provider Advanced Practice Midwife | DX: Z20.2 Contact with and (suspected) exposure to infections with a predominantly sexual mode of transmission (principal); N89.8 Other specified noninflammatory disorders of vagina | CPT/HCPCS: 87070; 87205 ==

== ENCOUNTER → 2024-10-10 | Outpatient (CLI) | payer BC, SELFPAY ==
--- NOTE | 2024-10-10 07:49 | US_ITS ---
PROCEDURE: TRANSVAGINAL NON- REASON FOR EXAM: Ovarian cyst. COMPARISON: None provided.. TECHNIQUE: Transvaginal pelvic ultrasound. Color and spectral doppler analysis of the ovaries. FINDINGS: Measurements: Uterus: 7.2 x 4.7 x 3.0 cm Endometrial Thickness: 7.4 mm. Right Ovary: 3.8 x 3.0 x 3.1 cm. Left Ovary: 5.5 x 5.8 x 2.4 cm. Uterus: Anteverted. Normal contour and myometrial echotexture. Endometrium: Normal echotexture. Right ovary: Normal size and echotexture. Left ovary: A left ovarian cyst is measured at 5.1 x 4.0 x 1.7 cm. No internal blood flow is seen upon color Doppler evaluation. Normal size and echotexture, otherwise. Other adnexal findings: None. Cul-de-sac: No free intraperitoneal fluid identified. No tenderness. DOPPLER: Color Doppler: Normal color flow doppler signal at both ovaries. Spectral Doppler: Normal arterial inflow and venous outflow signal at both ovaries. US/Transvaginal Non- IMPRESSION: 1. Left ovarian simple appearing cyst. 2. No acute process is otherwise noted. Reading Location: [id number]
== END | disposition home or self-care (01) ==
LOC: OPUS 07:50 → US 08:02
PROVIDERS: PCP Family Medicine; Referring Provider Obstetrics & Gynecology; Visit Provider Obstetrics & Gynecology
DX: N83.202 Unspecified ovarian cyst, left side (principal)
CPT/HCPCS: 76830

== ENCOUNTER → 2024-12-25 | Outpatient (CLI) | payer BC, SELFPAY | END | disposition home or self-care (01) | LOC: MFPLAB 16:15 → LABSPEC 16:16 | PROVIDERS: PCP Family Medicine; Referring Provider Family Medicine; Visit Provider Family Medicine | DX: M54.50 Low back pain, unspecified (principal) | CPT/HCPCS: 87086 ==

== ENCOUNTER → 2025-07-24 | Outpatient (CLI) | payer BC, SELFPAY ==
[2025-07-26 06:08] LABS: Chlamydia By Nucleic Acid AMP Negative (Negative); Gonococcus By Nucleic Acid AMP Negative (Negative)
== END | disposition home or self-care (01) ==
LOC: LABSPEC 12:08
PROVIDERS: PCP Family Medicine; Visit Provider Nurse Practitioner Women's Health
DX: Z11.3 Encounter for screening for infections with a predominantly sexual mode of transmission (principal); N89.8 Other specified noninflammatory disorders of vagina
CPT/HCPCS: 87070; 87205; 87491; 87591